=== PATIENT | male | born 1945 | race Caucasian/White ===

== ENCOUNTER 2021-11-13 08:06 | Inpatient (IN) | payer MEDICARE ==
[2021-11-13] MEDS ORDERED: ACETAMINOPHEN TAB 500 MG TAB PO STA (08:29)
--- NOTE | 2021-11-13 08:42 | ED ---
General Adult HPI - General Chief complaint: Shortness of Breath Stated complaint: covid+, low oxygen Time Seen by Provider: 11/13/21 08:23 Source: patient, RN notes reviewed Mode of arrival: wheelchair Limitations: no limitations - History of Present Illness Initial comments: Patient 76-year-old male presented to the emergency room today with chief com plaint of cough, congestion, body aches over the last 4 days. Patient does admit that symptoms started 4 days ago he started to feel better 2 days ago but symptoms increase once again. He denies feeling short of breath. He does admit to body aches and fatigue. Patient denies any other complaints or symptoms at this time. He does admit that his son had COVID-19. He states he has not had a covert test. Patient denies any recent chest pain, back pain, abdominal pain, nausea or vomiting, numbness or tingling, headaches or visual changes, or any other complaints. - Related Data Home Medications Medication Instructions Recorded Confirmed Cholecalciferol [Vitamin D3 (25 50 mcg PO DAILY 11/13/21 11/13/21 Mcg = 1000 Iu)] Allergies Allergy/AdvReac Type Severity Reaction Status Date / Time No Known Allergies Allergy Verified 11/13/21 09:57 Review of Systems ROS Statement: Those systems with pertinent positive or pertinent negative responses have been documented in the HPI. ROS Other: All systems not noted in ROS Statement are negative. Past Medical History Past Medical History: Hypertension History of Any Multi-Drug Resistant Organisms: None Reported Past Surgical History: No Surgical Hx Reported Past Psychological History: No Psychological Hx Reported Smoking Status: Never smoker Past Alcohol Use History: None Reported Past Drug Use History: None Reported General Exam - General Exam Comments Initial Comments: General: The patient is awake and alert, in no distress, and does not appear acutely ill. Eye: No nystagmus. There is normal conjunctiva bilaterally. No signs of icterus. Ears, nose, mouth and throat: There are moist mucous membranes and no oral lesions. Neck: The neck is supple, there is no tenderness or JVD. Cardiovascular: There is a regular rate and rhythm. No murmur, rub or gallop is appreciated. Respiratory: respirations are non-labored, breath sounds are equal. Musculoskeletal: Normal ROM, no tenderness. Strength 5/5. Sensation intact. Neurological: A&O x 3. CN II-XII intact, There are no obvious motor or sensory deficits. Coordination appears grossly intact. Speech is normal. Skin: Skin is warm and dry and no rashes or lesions are noted. Psychiatric: Cooperative, appropriate mood & affect, normal judgment. Limitations: no limitations Course Vital Signs 11/13/21 11/13/21 11/13/21 08:16 08:30 09:46 Temperature 100.5 F H Pulse Rate 84 80 Respiratory 22 20 Rate Blood Pressure 188/91 154/86 O2 Sat by Pulse 80 L 95 95 Oximetry Medical Decision Making - Medical Decision Making Patient was hypoxic at triage. Was placed on nasal cannula oxygen 6 L which improved oxygenation. Patient's chest x-rays consistent with [place] pneumonia. Covert test was positive. Patient's reviewed and does show elevated troponin 0.080. Patient denies any chest pain. EKG has been reviewed. Case discussed with attending physician Dr. Noriega will admit the patient for covert pneumonia. Patient was given dose of dexamethasone here in emergency room for hypoxia. - Lab Data Result diagrams: 11/13/21 08:44 11/13/21 08:44 Lab Results 11/13/21 11/13/21 11/13/21 Range/Units 08:44 08:44 08:44 WBC 4.1 (3.8-10.6) k/uL RBC 4.02 L (4.30-5.90) m/uL Hgb 12.7 L (13.0-17.5) gm/dL Hct 36.1 L (39.0-53.0) % MCV 89.8 (80.0-100.0) fL MCH 31.5 (25.0-35.0) pg MCHC 35.1 (31.0-37.0) g/dL RDW 12.7 (11.5-15.5) % Plt Count 117 L (150-450) k/uL MPV 7.6 Neutrophils % 82 % Lymphocytes % 14 % Monocytes % 3 % Eosinophils % 0 % Basophils % 0 % Neutrophils # 3.4 (1.3-7.7) k/uL Lymphocytes # 0.6 L (1.0-4.8) k/uL Monocytes # 0.1 (0-1.0) k/uL Eosinophils # 0.0 (0-0.7) k/uL Basophils # 0.0 (0-0.2) k/uL Sodium 128 L (137-145) mmol/L Potassium 4.0 (3.5-5.1) mmol/L Chloride 96 L (98-107) mmol/L Carbon Dioxide 24 (22-30) mmol/L Anion Gap 8 mmol/L BUN 23 H (9-20) mg/dL Creatinine 0.99 (0.66-1.25) mg/dL Est GFR (CKD-EPI)AfAm 86 (>60 ml/min/1.73 sqM) Est GFR (CKD-EPI)NonAf 75 (>60 ml/min/1.73 sqM) Glucose 142 H (74-99) mg/dL Calcium 7.8 L (8.4-10.2) mg/dL Total Bilirubin 0.7 (0.2-1.3) mg/dL AST 58 (17-59) U/L ALT 15 (4-49) U/L Alkaline Phosphatase 45 (38-126) U/L Troponin I 0.080 H* (0.000-0.034) ng/mL Total Protein 6.3 (6.3-8.2) g/dL Albumin 3.3 L (3.5-5.0) g/dL Coronavirus (PCR) (Not Detectd) 11/13/21 Range/Units 08:44 WBC (3.8-10.6) k/uL RBC (4.30-5.90) m/uL Hgb (13.0-17.5) gm/dL Hct (39.0-53.0) % MCV (80.0-100.0) fL MCH (25.0-35.0) pg MCHC (31.0-37.0) g/dL RDW (11.5-15.5) % Plt Count (150-450) k/uL MPV Neutrophils % % Lymphocytes % % Monocytes % % Eosinophils % % Basophils % % Neutrophils # (1.3-7.7) k/uL Lymphocytes # (1.0-4.8) k/uL Monocytes # (0-1.0) k/uL Eosinophils # (0-0.7) k/uL Basophils # (0-0.2) k/uL Sodium (137-145) mmol/L Potassium (3.5-5.1) mmol/L Chloride (98-107) mmol/L Carbon Dioxide (22-30) mmol/L Anion Gap mmol/L BUN (9-20) mg/dL Creatinine (0.66-1.25) mg/dL Est GFR (CKD-EPI)AfAm (>60 ml/min/1.73 sqM) Est GFR (CKD-EPI)NonAf (>60 ml/min/1.73 sqM) Glucose (74-99) mg/dL Calcium (8.4-10.2) mg/dL Total Bilirubin (0.2-1.3) mg/dL AST (17-59) U/L ALT (4-49) U/L Alkaline Phosphatase (38-126) U/L Troponin I (0.000-0.034) ng/mL Total Protein (6.3-8.2) g/dL Albumin (3.5-5.0) g/dL Coronavirus (PCR) Detected A (Not Detectd) Critical Care Time Critical Care Time: Yes (Hypoxia) Total Critical Care Time: 32 Disposition Clinical Impression: Pneumonia due to COVID-19 virus, Hypoxia, Elevated troponin Disposition: ADMITTED IP TO THIS [facility] Condition: Stable Referrals: None,Stated [Primary Care Provider] - 1-2 days Time of Disposition: 10:05
[2021-11-13 08:52] LABS: Basophils % (A) 0 %; Eosinophils % (A) 0 %; HCT 36.1 % (39.0-53.0); HGB 12.7 gm/dL (13.0-17.5); Lymphocytes # (A) 0.6 k/uL (1.0-4.8); Lymphocytes % (A) 14 %; MCH 31.5 pg (25.0-35.0); MCHC 35.1 g/dL (31.0-37.0); MCV 89.8 fL (80.0-100.0); Mean Platelet Volume 7.6; Monocytes # (A) 0.1 k/uL (0-1.0); Monocytes % (A) 3 %; Neutrophils # (A) 3.4 k/uL (1.3-7.7); Neutrophils % (A) 82 %; Platelet Count 117 k/uL (150-450); RBC 4.02 m/uL (4.30-5.90); RDW 12.7 % (11.5-15.5); WBC 4.1 k/uL (3.8-10.6)
[2021-11-13 09:15] LABS: Albumin 3.3 g/dL (3.5-5.0); Calcium 7.8 mg/dL (8.4-10.2); Total Bilirubin 0.7 mg/dL (0.2-1.3); Total Protein 6.3 g/dL (6.3-8.2)
--- NOTE | 2021-11-13 09:27 | XR ---
EXAMINATION TYPE: XR chest 1V portable DATE OF EXAM: 11/13/2021 COMPARISON: NONE HISTORY: Covid positive, cough TECHNIQUE: Single frontal view of the chest is obtained. FINDINGS: Bilateral airspace disease is present. Heart size appears prominently which could be techn ical, patient is rotated. There is no evident pneumothorax or pleural effusion. Right hemidiaphragm i s elevated. IMPRESSION: Findings consistent with Covid pneumonia. Follow-up, additional findings above
[2021-11-13] MEDS ORDERED: DEXAMETHASONE SOD PHOSPHATE 10 MG/ML 1 ML VIAL IV STA (09:49)
[2021-11-13] MEDS ORDERED: SODIUM CHLORIDE 0.9% 1,000 ML IV ONE (10:00)
--- NOTE | 2021-11-13 16:01 | HP ---
HISTORY AND PHYSICAL CHIEF COMPLAINTS: Shortness of breath and cough with positive and hypoxia. HISTORY OF PRESENT ILLNESS: This 77-year-old gentleman with a past medical history of hypertension, not being followed by any primary care physician in the outpatient setting, was recently moved to the area. The patient presented to the emergency room with complaints of cough, shortness of breath, body aches for the last 4 days and the patient was feeling shortness of breath. The patient's son had Covid 19 positive and the patient came to [facility] and pulse ox was found to be 80% on room air on admission and the patient was febrile. The chest x-ray which was done in the ER and personally reviewed by me showed significant bilateral pneumonia. The patient admitted for further evaluation and treatment. There is no history of any rigors, no history of headache, loss of consciousness, seizures at this time. Lab hutchinson, the patient had hyponatremia. The patient also had elevated troponin. Cardiology evaluation is sought and albumin is 3.3 at this time. PAST MEDICAL HISTORY: History of hypertension. MEDICATIONS: Prior to admission medications are: Vitamin D3 50 mg daily. ALLERGIES: None. FAMILY HISTORY: No history of heart disease or strokes in the family. SOCIAL HISTORY: No history of smoking. No history of alcohol. REVIEW OF SYSTEMS: ENT: No diminished vision. No diminished hearing. CARDIOVASCULAR as mentioned. RESPIRATORY: As mentioned earlier. GI: No nausea or vomiting. : No dysuria. NERVOUS SYSTEM: No numbness or weakness. ALLERGY/IMMUNOLOGY: No asthma, hayfever. MUSCULOSKELETAL as mentioned earlier. HEMATOLOGY/ONCOLOGY: No history of anemia. ENDOCRINE: No history of diabetes. CONSTITUTIONAL: As mentioned earlier. DERMATOLOGY: Negative. RHEUMATOLOGY: Negative. PSYCHIATRIC: As mentioned earlier. PHYSICAL EXAMINATION: The patient is alert and oriented times three. Pulse 84, blood pressure 180/91, respirations 22, temperature 100.5, pulse ox 88 percent on room air. HEENT: Conjunctivae normal. Oral mucosa moist. NECK: No jugular venous distention. No carotid bruit. CARDIOVASCULAR system: S1, S2 muffled. RESPIRATION: Breath sounds diminished in the bases. A few scattered rhonchi. ABDOMEN: Soft, obese. LEGS: No edema. No swelling. NERVOUS SYSTEM: Higher functions as mentioned earlier. Moves all four limbs. No focal motor or sensory deficits. LYMPHATICS: No lymph nodes palpable in the neck, axillae or groin. SKIN: No ulcer. No rash. No bleeding. JOINTS: No active deforming arthropathy. LABS: WBC 4.8, hemoglobin 12.6, sodium 120. Other labs are noted. X-ray reviewed personally. ASSESSMENT: 1. Acute Covid 19 with acute Covid 19 bilateral interstitial pneumonia with acute hypoxic respiratory failure. 2. Anemia, normocytic. 3. Thrombocytopenia. 4. Hyponatremia. 5. Elevated random glucose. 6. Troponin 0.080, indeterminate rule out acute myocardial infarction possibly Covid 19 related. 7. Hypertension. 8. Obesity with body mass of 42.6. RECOMMENDATIONS AND DISCUSSION: This 76-year-old gentleman who presented with multiple complex medical issues, we will monitor the patient closely. Continue the current medications, management and symptomatic treatment. We will initiate oxygen, dexamethasone, Lovenox. Cardiology consultation. Pulmonary consultation. We will also recommend a D-dimer and if it is positive, a CT angio chest. Prognosis guarded. Further recommendations to follow. Recommend the patient follow up with primary physician after discharge. MMODL / IJN: [id number] /
[2021-11-13] MEDS: amLODIPine 10 MG TAB PO SCH (16:02)
[2021-11-13] MEDS: dexAMETHasone 2 MG TAB PO SCH (16:03)
[2021-11-13] MEDS: ENOXAPARIN 40 MG/0.4 ML SYRINGE SQ SCH (16:04)
[2021-11-13 16:07] LABS: C Reactive Protein 4.2 mg/dL (<1.0); Magnesium 2.2 mg/dL (1.6-2.3)
[2021-11-13] MEDS ORDERED: ALBUTEROL HFA INHALER INHALATION SCH (20:00)
[2021-11-14 06:35] LABS: Basophils % (A) 0 %; Eosinophils % (A) 0 %; HCT 36.4 % (39.0-53.0); HGB 12.3 gm/dL (13.0-17.5); Lymphocytes # (A) 0.4 k/uL (1.0-4.8); Lymphocytes % (A) 14 %; MCH 30.6 pg (25.0-35.0); MCHC 33.7 g/dL (31.0-37.0); MCV 90.8 fL (80.0-100.0); Mean Platelet Volume 7.7; Monocytes # (A) 0.2 k/uL (0-1.0); Monocytes % (A) 5 %; Neutrophils # (A) 2.4 k/uL (1.3-7.7); Neutrophils % (A) 79 %; Platelet Count 129 k/uL (150-450); RBC 4.01 m/uL (4.30-5.90); RDW 12.6 % (11.5-15.5); WBC 3.1 k/uL (3.8-10.6)
[2021-11-14 06:54] LABS: African American GFR (CKD) >90 (>60 ml/min/1.73 sqM); Anion Gap 10 mmol/L; Blood Urea Nitrogen 23 mg/dL (9-20); Calcium 8.1 mg/dL (8.4-10.2); Carbon Dioxide 25 mmol/L (22-30); Chloride 94 mmol/L (98-107); Glucose 152 mg/dL (74-99); Non-African American GFR(CKD) 83 (>60 ml/min/1.73 sqM); Potassium 4.1 mmol/L (3.5-5.1); Sodium 129 mmol/L (137-145)
[2021-11-14] MEDS: CHOLECALCIFEROL 25 MCG (1000 IU) TABLET PO SCH (08:04)
[2021-11-14] MEDS: dexAMETHasone 2 MG TAB PO SCH (08:04)
[2021-11-14] MEDS: ENOXAPARIN 40 MG/0.4 ML SYRINGE SQ SCH (08:04)
[2021-11-14] MEDS: amLODIPine 10 MG TAB PO SCH (08:04)
[2021-11-14] MEDS: ALBUTEROL HFA INHALER INHALATION SCH ×4 (10:01→21:15)
--- NOTE | 2021-11-14 15:32 | P.CNPUL ---
History of Present Illness Consult date: 11/14/21 Requesting physician: Sammy Noriega Reason for consult: dyspnea, cough, hypoxemia, pneumonia, abnormal CXR/CT Chief complaint: Shortness of breath, myalgias, cough. History of present illness: Pulmonary consult dated 11/14/2021. 76-year-old male with a history of hypertension, presents to the emergency department at 8:00 in the morning, on November 13. He came in because of complaints of increasing and progressive shortness of breath. He's also complaining of some muscle soreness, and cough. He denied any fever or chills. The patient has been sick for about 10 days or so. The patient's only history is that of hypertension. Does not have a family doctor in this area. The patient apparently tested positive for coronavirus on November 09. He is on vaccinated. The patient's currently on 5 L nasal cannula, with saturations of 94%. Laboratory data includes a white count of 3.1, hemoglobin 12.3, hematocrit 36.4, and platelet count 129,000. D-dimer is 0.68. Sodium 129, potassium 4.1, chlorides 94, CO2 25, anion gap 10, BUN 23, and creatinine 0.91. The patient's troponins were 0.080 and 0.089. Albumin was 3.3. C-reactive protein 4.2. LDH 1009. Coronavirus testing was positive. Chest x-ray shows diffuse bilateral infiltrates. The patient appears not to be in any significant respiratory distress. Review of Systems REVIEW OF SYSTEMS: CONSTITUTIONAL: Fatigue. NEUROLOGIC: [ Negative.] HEENT: [ Negative.] CARDIAC: [Negative.] PULMONARY: Shortness of breath, and dry cough. GI: [Negative.] : [Negative.] RHEUMATOLOGIC: Myalgias. IMMUNOLOGIC: [ Negative.] ENDOCRINE: [Negative. ] DERMATOLOGIC: [Negative.] Past Medical History Past Medical History: Hypertension History of Any Multi-Drug Resistant Organisms: None Reported Past Surgical History: No Surgical Hx Reported Past Psychological History: No Psychological Hx Reported Smoking Status: Never smoker Past Alcohol Use History: None Reported Past Drug Use History: None Reported Medications and Allergies Home Medications Medication Instructions Recorded Confirmed Type Cholecalciferol [Vitamin D3 (25 50 mcg PO DAILY 11/13/21 11/13/21 History Mcg = 1000 Iu)] Allergies Allergy/AdvReac Type Severity Reaction Status Date / Time No Known Allergies Allergy Verified 11/13/21 09:57 Physical Exam Osteopathic Statement: *. No significant issues noted on an osteopathic structural exam other than those noted in the History and Physical/Consult. Vitals: Vital Signs Temp Pulse Pulse Pulse Resp BP BP 11/14/21 11:30 87 16 148/69 11/14/21 08:05 96.8 F L 71 16 178/83 11/14/21 04:00 97.9 F 95 18 160/76 11/14/21 00:00 98.1 F 98 18 174/88 11/13/21 20:51 11/13/21 20:00 98.0 F 77 18 188/83 11/13/21 17:58 98.0 F 69 18 160/74 11/13/21 16:27 11/13/21 16:25 11/13/21 16:00 66 16 160/86 Pulse Ox 11/14/21 11:30 93 L 11/14/21 08:05 94 L 11/14/21 04:00 93 L 11/14/21 00:00 91 L 11/13/21 20:51 94 L 11/13/21 20:00 93 L 11/13/21 17:58 94 L 11/13/21 16:27 93 L 11/13/21 16:25 80 L 11/13/21 16:00 95 Intake and Output 11/14/21 11/14/21 11/14/21 06:59 14:59 22:59 Intake Total 236 Balance 236 Intake: Oral 236 Other: Voiding Method Toilet Toilet # Voids 3 1 Weight 145 kg No acute distress, oriented 3. Currently, the patient's on 5 L nasal cannula. Saturations are 94%. HEENT examination is grossly unremarkable. Neck supple. Full range of motion. No adenopathy thyromegaly or neck vein distention. Cardiovascular examination reveals regular rhythm rate. S1-S2 normal. No S3 or S4. No discernible murmur noted. Heart rate 87 bpm. Heart sounds are distant. Lungs reveal some bilateral rhonchi. No wheezes or crackles. Breath sounds equal bilaterally. Abdomen soft bowel sounds are heard. No masses or tenderness. Extremities are intact. No cyanosis clubbing or edema. Skin is without rash or lesion. Neurologic examination is brief but nonfocal. Results - Laboratory Findings CBC and BMP: 11/14/21 05:55 11/14/21 05:55 PT/INR, D-dimer D-Dimer 0.68 mg/L FEU (<0.60) H 11/13/21 15:27 Abnormal lab findings: Abnormal Labs 11/13/21 11/13/21 11/13/21 08:44 08:44 08:44 WBC RBC 4.02 L Hgb 12.7 L Hct 36.1 L Plt Count 117 L Lymphocytes # 0.6 L D-Dimer Sodium 128 L Chloride 96 L BUN 23 H Glucose 142 H Calcium 7.8 L Ferritin Lactate Dehydrogenase Troponin I 0.080 H* C-Reactive Protein Albumin 3.3 L Coronavirus (PCR) 11/13/21 11/13/21 11/13/21 08:44 12:43 15:27 WBC RBC Hgb Hct Plt Count Lymphocytes # D-Dimer 0.68 H Sodium Chloride BUN Glucose Calcium Ferritin Lactate Dehydrogenase Troponin I 0.089 H* C-Reactive Protein Albumin Coronavirus (PCR) Detected A 11/13/21 11/14/21 11/14/21 15:27 05:55 05:55 WBC 3.1 L RBC 4.01 L Hgb 12.3 L Hct 36.4 L Plt Count 129 L Lymphocytes # 0.4 L D-Dimer Sodium 129 L Chloride 94 L BUN 23 H Glucose 152 H Calcium 8.1 L Ferritin 447.0 H Lactate Dehydrogenase 1009 H Troponin I C-Reactive Protein 4.2 H Albumin Coronavirus (PCR) - Diagnostic Findings Chest x-ray: image reviewed Assessment and Plan Assessment: Acute hypoxemic respiratory failure secondary to coronavirus associated pneumonia. History of hypertension. History of obesity. Plan: Plan dated 11/14/2021. The patient is not a candidate for REM. The patient should get vitamin C, vitamin D3, and zinc, at usual doses. In addition, the patient should get Decadron 6 mg a day, and Lovenox 40 mg subcu daily. We will continue to watch patient closely. He actually asked me to know whether or not he could go home. Prognosis is guarded. We will continue to follow make recommendations were appropriate. His chest x-ray looks bad. Time with Patient: Greater than 30
[2021-11-14] MEDS: INSULIN ASPART (NovoLOG) 100 UNIT/ML VIAL SQ SCH ×2 (17:38→20:15)
--- NOTE | 2021-11-14 17:50 | PN ---
PROGRESS NOTE DATE OF SERVICE: 11/14/2021 This 76-year-old gentleman admitted with acute COVID-19 infection with acute bilateral interstitial pneumonia is being closely monitored at this time. The D-dimer is elevated up to 0.68. Creatinine is normal. The patient was started on the usual medications of COVID-19. There is no history of any fever, rigor or chills at this time. Pulmonary consultation is ongoing. No fever. No cough. PHYSICAL EXAMINATION: Alert and oriented x3. Pulse 68, blood pressure 140/60, respirations 16, temperature 97.2, pulse ox 92% on 5 L. HEENT: Conjunctivae normal. NECK: No jugular venous distention. CARDIOVASCULAR: S1, S2 muffled. RESPIRATION: Breath sounds diminished at the bases. A few scattered rhonchi. ABDOMEN: Soft. NERVOUS SYSTEM: No focal deficit. LABS: WBC 3.2, hemoglobin 12.6. Sodium 129. ASSESSMENT: 1. Acute COVID-19 infection with acute COVID-19 bilateral interstitial pneumonia with acute hypoxic respiratory failure. 2. Anemia, normocytic. 3. Thrombocytopenia. 4. Leukopenia, possibly secondary to COVID-19. 5. Hyponatremia. 6. Elevated random glucose. 7. Troponin 0.087, indeterminate, possibly secondary to COVID-19. 8. Hypertension. 9. Rule out coronary artery disease. 10.Obesity with body mass index of 42.6. 11.Elevated inflammatory markers of COVID-19. RECOMMENDATIONS AND DISCUSSION: In this 76-year-old gentleman who presented with multiple complex medical issues, we will monitor the patient closely, continue the current medications, continue symptomatic treatment. I recommend cardiology evaluation as well as two-D echo with Doppler. Repeat labs. Infectious disease evaluation, pulmonary evaluation, and also a CT angio of the chest to complete the workup. Prognosis guarded. Further recommendations to follow. Ultrasound of the leg also will be requested. MMODL / IJN: [id number] /
--- NOTE | 2021-11-14 18:38 | CT ---
EXAMINATION TYPE: CT angio chest DATE OF EXAM: 11/14/2021 6:26 PM COMPARISON: Radiograph 11/13/2021 HISTORY: SOB, elevated d-dimer, covid CT DLP: 1036.3 mGycm Automated exposure control for dose reduction was used. CONTRAST: CTA scan of the thorax is performed with IV Contrast, patient injected with 80cc mL of Isovue 370, pu lmonary embolism protocol. MIP images are created and reviewed. FINDINGS: LUNGS: There are bilateral diffuse marked patchy ground glass opacities. There are small bilateral pl eural effusions. No pneumothorax. Otherwise tracheobronchial tree is patent. MEDIASTINUM: There is limited evaluation of the pulmonary artery segmental subsegmental branches. Oth erwise there is no CT evidence for pulmonary embolism. There are no greater than 1 cm hilar or media stinal lymph nodes. No pericardial effusion is seen. OTHER: No additional significant abnormality is seen. IMPRESSION: NO ACUTE PE WITHIN THE LIMITATIONS OF THE STUDY. FINDINGS COMPATIBLE WITH ATYPICAL PNEUMONIA INCLUDING COVID.
[2021-11-14 20:12] LABS: Glucose,Whole Blood 152 mg/dL (75-99)
[2021-11-15 05:58] LABS: Glucose,Whole Blood 117 mg/dL (75-99)
[2021-11-15] MEDS: INSULIN ASPART (NovoLOG) 100 UNIT/ML VIAL SQ SCH ×4 (06:35→21:03)
[2021-11-15 07:52] LABS: Basophils % (A) 0 %; Eosinophils % (A) 0 %; HCT 37.2 % (39.0-53.0); HGB 12.7 gm/dL (13.0-17.5); Lymphocytes # (A) 0.5 k/uL (1.0-4.8); Lymphocytes % (A) 7 %; MCHC 34.2 g/dL (31.0-37.0); MCV 90.7 fL (80.0-100.0); Mean Platelet Volume 7.5; Monocytes # (A) 0.4 k/uL (0-1.0); Monocytes % (A) 5 %; Neutrophils % (A) 87 %; Platelet Count 180 k/uL (150-450); RDW 12.9 % (11.5-15.5); WBC 6.9 k/uL (3.8-10.6)
[2021-11-15 08:07] LABS: Calcium 8.6 mg/dL (8.4-10.2); Potassium 4.5 mmol/L (3.5-5.1)
[2021-11-15] MEDS: dexAMETHasone 2 MG TAB PO SCH (08:38)
[2021-11-15] MEDS: amLODIPine 10 MG TAB PO SCH (08:38)
[2021-11-15] MEDS: CHOLECALCIFEROL 25 MCG (1000 IU) TABLET PO SCH (08:38)
[2021-11-15] MEDS: ZINC SULFATE 220 MG CAP PO SCH (08:38)
[2021-11-15] MEDS: ASCORBIC ACID 500 MG TAB PO SCH (08:39)
[2021-11-15] MEDS: ENOXAPARIN 40 MG/0.4 ML SYRINGE SQ SCH (08:39)
[2021-11-15] MEDS: ALBUTEROL HFA INHALER INHALATION SCH ×4 (08:41→21:27)
--- NOTE | 2021-11-15 09:13 | P.CONS ---
History of Present Illness - Reason for Consult Consult date: 11/14/21 covid 19 Requesting physician: Caitlin Ureña - Chief Complaint shortness of breath x few days - History of Present Illness History of present illness : Patient is 76-year-old male presenting to the ER for evaluation of cough congestion body aches that has been going on for the last 10 days to 2 weeks, with progressive increasing shortness of breath over the last few days patient denies having any fever or any chills patient did have a cough which is mild in intensity and is dry nature no pleuritic chest pain some nausea but no vomiting no abdominal pain no diarrhea on presentation to the hospital patient did have low-grade fever 100.5 F patient did have a hypoxemia with O2 sats of 80% on room air is currently 1% on 5 L nasal cannula patient did have a normal white count with lymphopenia D-dimer was mildly elevated creatinine 0.91 did have elevated troponin level exams are normal CRP is elevated hawkins PCR was positive patient did have a chest x-ray finding consistent with a Covid pneumonia patient was admitted to the hospital infectious he was consulted for further management patient did mention improvement in his symptomatology since he has been admitted to hospital Review of system: CONSTITUTIONAL: Positive for weakness along with the fever. EYES: No complaint. ENT: No complaint. RESPIRATORY: As per history of present illness. CARDIOVASCULAR: No complaint. GENITOURINARY: No complaint. GASTROINTESTINAL: As per history of present illness. MUSCULOSKELETAL: No complaint. INTEGUMENTARY: No complaint. PSYCHOLOGIC: No complaint. ENDOCRINE: No complaint. NEUROLOGIC: No complaint. Past medical history : Reviewed, documented below Past surgical history : Reviewed, documented below Social history: Reviewed, documented below Medications: Reviewed, as documented below EXAMINATION: Vital sigans= Reviewed and documented below GENERAL DESCRIPTION: Elderly male up in the room, no distress. No tachypnea or accessory muscle of respiration use. HEENT: Shows Pallor , no scleral icterus. Oral mucous membrane is dry. NECK: Trachea central, no thyromegaly. LUNGS: Unlabored breathing. Coarse breath sounds bilaterally. No wheeze or c rackle. HEART: S1, S2, regular rate and rhythm. ABDOMEN: Soft, no tenderness , guarding or rigidity EXTREMITIES: No edema of feet. SKIN: No rash, no masses palpable. NEUROLOGICAL: The patient is awake, alert, oriented x3, mood and affect normal. LABS AND RADIOLOGY: Reviewed results see below Assessment : Patient presented to hospital with increasing shortness of breath and cough in this we did have low-grade fever with evidence of multifocal pneumonia on a chest x-ray secondary to the COVID-19 infection patient symptom has been going on for more than 10 days and is currently out of the therapeutic window for remdesivir and clinically no suspicion for secondary bacterial pneumonia Plan: 1-patient to continue with the dexamethasone Lovenox 2-we will add zinc and ascorbic acid 3-droplet isolation and respiratory support We will follow on clinical condition and cultures to further adjust medication if needed Thank you for this consultation we will follow the patient along with you Past Medical History Past Medical History: Hypertension History of Any Multi-Drug Resistant Organisms: None Reported Past Surgical History: No Surgical Hx Reported Past Psychological History: No Psychological Hx Reported Smoking Status: Never smoker Past Alcohol Use History: None Reported Past Drug Use History: None Reported Medications and Allergies Home Medications Medication Instructions Recorded Confirmed Type Cholecalciferol [Vitamin D3 (25 50 mcg PO DAILY 11/13/21 11/13/21 History Mcg = 1000 Iu)] Allergies Allergy/AdvReac Type Severity Reaction Status Date / Time No Known Allergies Allergy Verified 11/13/21 09:57 Physical Exam Vitals: Vital Signs Temp Pulse Pulse Pulse Resp BP BP 11/14/21 11:30 87 16 148/69 11/14/21 08:05 96.8 F L 71 16 178/83 11/14/21 04:00 97.9 F 95 18 160/76 11/14/21 00:00 98.1 F 98 18 174/88 11/13/21 20:51 11/13/21 20:00 98.0 F 77 18 188/83 11/13/21 17:58 98.0 F 69 18 160/74 11/13/21 16:27 11/13/21 16:25 11/13/21 16:00 66 16 160/86 11/13/21 13:42 97.9 F 64 16 167/96 Pulse Ox 11/14/21 11:30 93 L 11/14/21 08:05 94 L 11/14/21 04:00 93 L 11/14/21 00:00 91 L 11/13/21 20:51 94 L 11/13/21 20:00 93 L 11/13/21 17:58 94 L 11/13/21 16:27 93 L 11/13/21 16:25 80 L 11/13/21 16:00 95 11/13/21 13:42 96 Intake and Output 11/13/21 11/14/21 11/14/21 22:59 06:59 14:59 Intake Total 118 Balance 118 Intake: Oral 118 Other: Voiding Method Toilet Toilet Toilet # Voids 3 1 Weight 145.15 kg 145 kg Results CBC & Chem 7: 11/15/21 07:10 11/15/21 07:10 Labs: Abnormal Lab Results - Last 24 Hours (Table) 11/13/21 11/13/21 11/13/21 Range/Units 12:43 15:27 15:27 WBC (3.8-10.6) k/uL RBC (4.30-5.90) m/uL Hgb (13.0-17.5) gm/dL Hct (39.0-53.0) % Plt Count (150-450) k/uL Lymphocytes # (1.0-4.8) k/uL D-Dimer 0.68 H (<0.60) mg/L FEU Sodium (137-145) mmol/L Chloride (98-107) mmol/L BUN (9-20) mg/dL Glucose (74-99) mg/dL Calcium (8.4-10.2) mg/dL Ferritin 447.0 H (22.0-322.0) ng/mL Lactate Dehydrogenase 1009 H (313-618) U/L Troponin I 0.089 H* (0.000-0.034) ng/mL C-Reactive Protein 4.2 H (<1.0) mg/dL 11/14/21 11/14/21 Range/Units 05:55 05:55 WBC 3.1 L (3.8-10.6) k/uL RBC 4.01 L (4.30-5.90) m/uL Hgb 12.3 L (13.0-17.5) gm/dL Hct 36.4 L (39.0-53.0) % Plt Count 129 L (150-450) k/uL Lymphocytes # 0.4 L (1.0-4.8) k/uL D-Dimer (<0.60) mg/L FEU Sodium 129 L (137-145) mmol/L Chloride 94 L (98-107) mmol/L BUN 23 H (9-20) mg/dL Glucose 152 H (74-99) mg/dL Calcium 8.1 L (8.4-10.2) mg/dL Ferritin (22.0-322.0) ng/mL Lactate Dehydrogenase (313-618) U/L Troponin I (0.000-0.034) ng/mL C-Reactive Protein (<1.0) mg/dL
--- NOTE | 2021-11-15 10:47 | P.CRDCN ---
History of Present Illness History of present illness: HISTORY OF PRESENTING ILLNESS This is a pleasant 76-year-old male past medical history significant for hypertension. He does not follow with a energy conservation specialist. We have been asked to see in consultation for elevated troponin. Patient presents with complaints of increasing shortness of breath, some muscle soreness, and cough. Patient tested positive for COVID-19 on November 09, he is unvaccinated. The patient's troponins were 0.080 and 0.089. Coronavirus testing was positive. Chest x-ray revealed diffuse bilateral infiltrates. Patient seen and examined at bedside, his shortness of breath he says has improved, he is adamant about going home. He denies chest pain, lightheadedness or dizziness. He denies any history of CAD, AL, Stroke, or diabetes. DIAGNOSTICS EKG reveals sinus rhythm HR 75, no significant ST-T wave abnormalities Telemetry tracings indicate sinus rhythm, heart rate 6080s Chest CT- Negative for PE, findings compatible with atypical pneumonia Laboratory reviewed, WBC 6.9, hemoglobin 12, platelets 180, sodium 131, potassium 4.5, BUN 30, serum creatinine 1.1 Current cardiac medications include vitamin D 3 REVIEW OF SYSTEMS At the time of my exam: CONSTITUTIONAL: Denies fever or chills. CARDIOVASCULAR: +shortness of breath, Denies chest pain, orthopnea, PND or palpitations. RESPIRATORY: +cough. GASTROINTESTINAL: Denies abdominal pain, diarrhea, constipation, nausea or vomiting. MUSCULOSKELETAL: Denies myalgias. NEUROLOGIC: Denies numbness, tingling, headacbe or weakness. ENDOCRINE: Denies fatigue, weight change, polydipsia or polyurina. GENITOURINARY: Denies burning, hematuria or urgency with micturation. HEMATOLOGIC: Denies history of anemia or bleeding. PHYSICAL EXAMINATION Blood pressure 176/83 HR 76, afebrile, Oxygen saturations 91% on 5L nasal cannula CONSTITUTIONAL: No apparent distress. HEENT: Head is normocephalic. No JVD. CHEST EXAMINATION: Lungs are bilateral rhonchi to auscultation. HEART EXAMINATION: Regular rate and rhythm. S1, S2 heard. ABDOMEN: Soft, nontender. Positive bowel sounds. EXTREMITIES: no lower extremity edema NEUROLOGIC EXAMINATION: Patient is awake, alert and oriented x3. ASSESSMENT Covid-19 pneumonia Elevated troponin, likely related to covid-19 infection and hypoxemia Hypertension PLAN We will obtain 2D echocardiogram, if no acute findings on echocardiogram no further workup from a cardiology perspective. Rest of management per Pulmonary and primary. Nurse Practitioner note has been reviewed, I agree with a documented findings and plan of care. Patient was seen and examined. Past Medical History Past Medical History: Hypertension History of Any Multi-Drug Resistant Organisms: None Reported Past Surgical History: No Surgical Hx Reported Past Psychological History: No Psychological Hx Reported Smoking Status: Never smoker Past Alcohol Use History: None Reported Past Drug Use History: None Reported Medications and Allergies Home Medications Medication Instructions Recorded Confirmed Type Cholecalciferol [Vitamin D3 (25 50 mcg PO DAILY 11/13/21 11/13/21 History Mcg = 1000 Iu)] Allergies Allergy/AdvReac Type Severity Reaction Status Date / Time No Known Allergies Allergy Verified 11/13/21 09:57 Physical Exam Vitals: Vital Signs Temp Pulse Resp BP Pulse Ox 11/15/21 03:59 98.6 F 76 18 176/83 91 L 11/15/21 00:00 98.1 F 79 19 166/74 91 L 11/14/21 20:00 98.0 F 92 18 166/72 93 L 11/14/21 15:35 97.9 F 68 16 141/63 92 L 11/14/21 11:30 87 16 148/69 93 L Intake and Output 11/14/21 11/15/21 11/15/21 22:59 06:59 14:59 Intake Total 128 10 Balance 128 10 Intake: IV 10 10 Invasive Line 2 10 10 Oral 118 Other: Voiding Method Toilet Toilet # Voids 4 1 Weight 144.3 kg Results 11/15/21 07:10 11/15/21 07:10 CBC 11/15/21 Range/Units 07:10 WBC 6.9 (3.8-10.6) k/uL RBC 4.10 L (4.30-5.90) m/uL Hgb 12.7 L (13.0-17.5) gm/dL Hct 37.2 L (39.0-53.0) % Plt Count 180 (150-450) k/uL Comprehensive Metabolic Panel 11/15/21 Range/Units 07:10 Sodium 131 L (137-145) mmol/L Potassium 4.5 (3.5-5.1) mmol/L Chloride 97 L (98-107) mmol/L Carbon Dioxide 29 (22-30) mmol/L BUN 30 H (9-20) mg/dL Creatinine 1.14 (0.66-1.25) mg/dL Glucose 121 H (74-99) mg/dL Calcium 8.6 (8.4-10.2) mg/dL Current Medications Generic Name Dose Route Start Last Admin Trade Name Freq PRN Reason Stop Dose Admin Albuterol Sulfate 2 puff 11/14/21 08:00 11/15/21 08:41 Albuterol Hfa Inhaler INHALATION 2 puff RT-QID UMANG Administration Amlodipine Besylate 10 mg 11/13/21 15:30 11/14/21 08:04 Amlodipine 10 Mg Tab PO 10 mg DAILY UMANG Administration Ascorbic Acid 1,000 mg 11/15/21 09:00 Ascorbic Acid 500 Mg Tab PO DAILY UMANG Cholecalciferol 50 mcg 11/14/21 09:00 11/14/21 08:04 Cholecalciferol 25 Mcg (1000 Iu) Tablet PO 50 mcg DAILY UMANG Administration Dexamethasone 6 mg 11/13/21 15:30 11/14/21 08:04 Dexamethasone 2 Mg Tab PO 11/23/21 15:31 6 mg DAILY UMANG Administration Enoxaparin Sodium 40 mg 11/13/21 15:30 11/14/21 08:04 Enoxaparin 40 Mg/0.4 Ml Syringe SQ 40 mg Q24HR UMANG Administration Insulin Aspart 0 unit 11/14/21 17:30 11/15/21 06:35 Insulin Aspart (Novolog) 100 Unit/Ml Vial SQ Not Given ACHS [facility] Protocol Zinc Sulfate 220 mg 11/15/21 09:00 Zinc Sulfate 220 Mg Cap PO DAILY UMANG Intake and Output 11/14/21 11/15/21 11/15/21 22:59 06:59 14:59 Intake Total 128 10 Balance 128 10 Intake: IV 10 10 Invasive Line 2 10 10 Oral 118 Other: Voiding Method Toilet Toilet # Voids 4 1 Weight 144.3 kg 11/15/21 07:10 11/15/21 07:10
[2021-11-15 11:26] LABS: Glucose,Whole Blood 128 mg/dL (75-99)
[2021-11-15] MEDS: ACETAMINOPHEN TAB 325 MG TAB PO PRN (12:35)
[2021-11-15] MEDS ORDERED: methylPREDNISolone SOD SUCCI 125 MG/2 ML VIAL IV SCH (13:45)
--- NOTE | 2021-11-15 14:50 | P.PN ---
Subjective Progress Note Date: 11/15/21 Principal diagnosis: Shortness of breath. Pulmonary consult dated 11/14/2021. 76-year-old male with a history of hypertension, presents to the emergency department at 8:00 in the morning, on November 13. He came in because of complaints of increasing and progressive shortness of breath. He's also complaining of some muscle soreness, and cough. He denied any fever or chills. The patient has been sick for about 10 days or so. The patient's only history is that of hypertension. Does not have a family doctor in this area. The patient apparently tested positive for coronavirus on November 09. He is on vaccinated. The patient's currently on 5 L nasal cannula, with saturations of 94%. Laboratory data includes a white count of 3.1, hemoglobin 12.3, hematocrit 36.4, and platelet count 129,000. D-dimer is 0.68. Sodium 129, potassium 4.1, chlorides 94, CO2 25, anion gap 10, BUN 23, and creatinine 0.91. The patient's troponins were 0.080 and 0.089. Albumin was 3.3. C-reactive protein 4.2. LDH 1009. Coronavirus testing was positive. Chest x-ray shows diffuse bilateral infiltrates. The patient appears not to be in any significant respiratory distress. Progress note dated 11/15/2021. 76-year-old male, seen in consultation yesterday. He was admitted with a diagnosis of coronavirus associated pneumonia. Currently, he's on 5 L nasal cannula. Not receiving any IV fluids. The CT angiogram was negative for pulmonary embolism. His white count 6.9, hemoglobin 12.7, hematocrit 37.2, with a normal platelet count. Sodium 131, potassium 4.5, chlorides 97, CO2 29, BUN 30, creatinine 1.1. The patient was sitting in the room, all dressed, ready to leave. Apparently he is not being discharged. Chest x-ray showed diffuse bilateral infiltrates. Coronavirus testing was positive. Objective - Vital Signs Vital signs: Vital Signs Temp 99.8 F H 11/15/21 12:00 Pulse 84 11/15/21 12:00 Resp 18 11/15/21 13:31 BP 150/83 11/15/21 12:00 Pulse Ox 88 L 11/15/21 13:33 Intake & Output 11/14/21 11/15/21 11/15/21 18:59 06:59 18:59 Intake Total 354 20 240 Balance 354 20 240 Weight 144.3 kg Intake: IV 20 Invasive Line 2 20 Oral 354 240 Other: Voiding Method Toilet Toilet # Voids 4 1 - Exam No acute distress, oriented 3. Currently, the patient's on 5 L nasal cannula. Saturations are 89%. HEENT examination is grossly unremarkable. Neck supple. Full range of motion. No adenopathy thyromegaly or neck vein distention. Cardiovascular examination reveals regular rhythm rate. S1-S2 normal. No S3 or S4. No discernible murmur noted. Heart rate 84 bpm. Heart sounds are distant. Lungs reveal some bilateral rhonchi. No wheezes or crackles. Breath sounds equal bilaterally. Abdomen soft bowel sounds are heard. No masses or tenderness. Extremities are intact. No cyanosis clubbing or edema. Skin is without rash or lesion. Neurologic examination is brief but nonfocal. - Labs CBC & Chem 7: 11/15/21 07:10 11/15/21 07:10 Labs: Abnormal Lab Results - Last 24 Hours (Table) 11/14/21 11/15/21 11/15/21 Range/Units 20:08 05:55 07:10 RBC 4.10 L (4.30-5.90) m/uL Hgb 12.7 L (13.0-17.5) gm/dL Hct 37.2 L (39.0-53.0) % Lymphocytes # 0.5 L (1.0-4.8) k/uL Sodium (137-145) mmol/L Chloride (98-107) mmol/L BUN (9-20) mg/dL Glucose (74-99) mg/dL POC Glucose (mg/dL) 152 H 117 H (75-99) mg/dL 11/15/21 11/15/21 Range/Units 07:10 11:18 RBC (4.30-5.90) m/uL Hgb (13.0-17.5) gm/dL Hct (39.0-53.0) % Lymphocytes # (1.0-4.8) k/uL Sodium 131 L (137-145) mmol/L Chloride 97 L (98-107) mmol/L BUN 30 H (9-20) mg/dL Glucose 121 H (74-99) mg/dL POC Glucose (mg/dL) 128 H (75-99) mg/dL Assessment and Plan Assessment: Acute hypoxemic respiratory failure secondary to coronavirus associated pneu monia. History of hypertension. History of obesity. Plan: Plan dated 11/14/2021. The patient is not a candidate for REM. The patient should get vitamin C, vitamin D3, and zinc, at usual doses. In addition, the patient should get Decadron 6 mg a day, and Lovenox 40 mg subcu daily. We will continue to watch patient closely. He actually asked me to know whether or not he could go home. Prognosis is guarded. We will continue to follow make recommendations were appropriate. His chest x-ray looks bad. Plan dated 11/15/2021. The patient is not a candidate for REM. The patient get vitamin C, vitamin D3, and take in addition, the patient get Lovenox, and Decadron. Currently, he's on 5 L nasal cannula. Saturations are in the high 80s low 90s. The patient was all dressed ready to go home, but apparently is not being discharged. His chest x-ray shows diffuse bilateral infiltrates. There is no pulmonary embolism on CT angiogram. His lab data is reviewed. Time with Patient: Less than 30
[2021-11-15 16:46] LABS: Glucose,Whole Blood 127 mg/dL (75-99)
--- NOTE | 2021-11-15 17:33 | ECHOF ---
Referral Reason: MEASUREMENTS -------- HEIGHT: 0.0 cm WEIGHT: 0.0 kg BP: RVIDd: 4.0 cm (< 3.3) IVSd: 1.7 cm (0.6 - 1.1) LVIDd: 5.6 cm (3.9 - 5.3) LVPWd: 1.7 cm (0.6 - 1.1) IVSs: 1.9 cm LVIDs: 4.0 cm LVPWs: 2.0 cm LAESV Index (A-L): 61.55 ml/m Ao Diam: 3.2 cm (2.0 - 3.7) AV Cusp: 2.3 cm (1.5 - 2.6) LA Diam: 5.4 cm (2.7 - 3.8) MV EXCURSION: 17.459 mm (> 18.000) MV EF SLOPE: 99 mm/s (70 - 150) EPSS: 0.4 cm MV E Junior: 1.07 m/s MV DecT: 114 ms MV A Junior: 0.43 m/s MV E/A Ratio: 2.49 RAP: 5.00 mmHg RVSP: 60.06 mmHg FINDINGS -------- Sinus rhythm. This was a technically adequate study. The left ventricular size is normal. There is severe concentric left ventricular hypertrophy. Ove rall left ventricular systolic function is low-normal with, an EF between 50 - 55 %. The right ventricle is moderately enlarged. LA is severely dilated >40 ml/m2 The right atrium is mildly enlarged. Interatrial and interventricular septum intact. The aortic valve is trileaflet and appears structurally normal. There is no evidence of aortic regu rgitation. There is no evidence of aortic stenosis. Moderate mitral regurgitation is present. Moderate to severe tricuspid regurgitation present. There is severe pulmonary hypertension. The r ight ventricular systolic pressure, as measured by Doppler, is 60.06mmHg. Trace/mild (physiologic) pulmonic regurgitation. The aortic root size is normal. There is a small, generalized pericardial effusion present. CONCLUSIONS -------- 1. The left ventricular size is normal. 2. There is severe concentric left ventricular hypertrophy. 3. Overall left ventricular systolic function is low-normal with, an EF between 50 - 55 %. 4. The right ventricle is moderately enlarged. 5. LA is severely dilated >40 ml/m2 6. The right atrium is mildly enlarged. 7. Moderate mitral regurgitation is present. 8. Moderate to severe tricuspid regurgitation present. 9. There is severe pulmonary hypertension. 10. The right ventricular systolic pressure, as measured by Doppler, is 60.06mmHg. 11. Trace/mild (physiologic) pulmonic regurgitation. 12. There is a small, generalized pericardial effusion present. BLOCK CLEANER: Ivana Machado RDCS
--- NOTE | 2021-11-15 17:36 | PN ---
PROGRESS NOTE DATE OF SERVICE: 11/15/2021 This 76-year-old gentleman admitted with acute COVID-19 bilateral interstitial pneumonia with acute hypoxic respiratory failure is not keeping the oxygen, but the patient has been close to hypoxic. Patient is definitely more short of breath today and pulse ox is 88% on 5 L. The patient was started on dexamethasone and Lovenox. The patient is being closely monitored. The patient is not keeping the oxygen. The chest CTA which was personally reviewed by me showed bilateral extensive pneumonic processes highly suggestive of COVID pneumonia. Patient is being closely monitored. Past medical history reviewed. Review of systems could not be taken; the patient is stuporous. CURRENT MEDICATIONS: Reviewed. They include Tylenol, Ventolin, Norvasc, vitamin C, vitamin D3, Lovenox, NovoLog scale, zinc oxide. Doses are reviewed. PHYSICAL EXAMINATION: Patient is conscious but confused. Pulse is 84, blood pressure 150/86, respiration 18. Temperature 99.8, pulse ox 88% on 5 L. HEENT: Conjunctivae normal. Oral mucosa moist. NECK: No jugular venous distention. CARDIOVASCULAR: S1, S2 muffled. RESPIRATION: Breath sounds diminished at the bases. A few scattered rhonchi. ABDOMEN: Soft, nontender. NERVOUS SYSTEM: No focal deficit. LAB STUDIES: WBC 6.3, hemoglobin 12.2, sodium Other labs are noted. ASSESSMENT: 1. Acute COVID-19 infection with acute COVID-19 bilateral interstitial pneumonia with acute hypoxic respiratory failure. 2. Change in mental status, acute metabolic encephalopathy secondary to hypoxic encephalopathy. 3. Anemia, normocytic. 4. Possible chronic obstructive pulmonary disease, acute exacerbation. 5. Thrombocytopenia. 6. Leukopenia, possibly secondary to COVID-19. 7. Hyponatremia. 8. Elevated random glucose. 9. Troponin 0.087, indeterminate, possibly secondary to COVID-19. 10.Hypertension. 11.Rule out coronary artery disease. 12.Obesity with body mass index of 42.6. 13.Elevated inflammatory markers of COVID-19. RECOMMENDATIONS AND DISCUSSION: I recommend to continue current medications, continue with the monitoring, symptomatic treatment. Closely follow with Pulmonary and Infectious Disease. Otherwise, continue the oxygenation. Continue the rest of the medications. Prognosis extremely guarded because of multiple complex medical issues. Further recommendations to follow. See orders for further details. MMODL / IJN: [id number] / TUCKER
[2021-11-15 20:10] LABS: Glucose,Whole Blood 174 mg/dL (75-99)
[2021-11-15] MEDS: FLUTICASONE 220 MCG INHALER INHALATION SCH (21:27)
--- NOTE | 2021-11-15 22:50 | PN ---
PROGRESS NOTE DATE OF SERVICE: 11/15/2021 REASON FOR FOLLOWUP: COVID-19 pneumonia. INTERVAL HISTORY: The patient is afebrile. The patient remains hypoxic, requiring supplemental oxygen. The patient denies having any chest pain. No worsening cough or sputum production. No abdominal pain or diarrhea. PHYSICAL EXAMINATION: Blood pressure 128/64, pulse of 80, temperature of 99.8. He is 88% on 5 L nasal cannula. General description is an elderly male up in the room in no distress. Respiratory system: Unlabored breathing, decreased intensity of breath sounds. No wheeze. Heart S1, S2. Regular rate and rhythm. Abdomen soft, no tenderness. LABS: Hemoglobin is 12.6, white count 6.9, creatinine 1.14. DIAGNOSTIC IMPRESSION AND PLAN: Patient with acute respiratory failure secondary to COVID-19 pneumonia. Patient is currently on dexamethasone, Lovenox, zinc and ascorbic acid; to continue along with respiratory support. Monitor clinical course closely. Continue supportive care. MMODL / IJN: [id number] /
[2021-11-16] MEDS ORDERED: LORazepam 2 MG/ML INJ IV STA (05:03)
[2021-11-16 06:03] LABS: Glucose,Whole Blood 118 mg/dL (75-99)
[2021-11-16] MEDS: INSULIN ASPART (NovoLOG) 100 UNIT/ML VIAL SQ SCH ×4 (06:24→21:23)
[2021-11-16] MEDS: ALBUTEROL HFA INHALER INHALATION SCH ×4 (09:33→20:35)
--- NOTE | 2021-11-16 09:58 | PN ---
PROGRESS NOTE Mr. Urbina is a 76-year-old male who presented with evidence of Covid 19 infection. He has a history of hypertension. He had minimal troponin elevation. He continues to have dyspnea, although according to him, is better. He denies any chest pain. He denies any dizziness or palpitation. He denies any nausea. He had an echocardiogram with Doppler that showed ejection fraction 55% with moderate mitral and moderate severe tricuspid regurgitation and severe pulmonary hypertension of unknown duration or etiology. He continues to be on amlodipine 10 mg daily, Lovenox subcu in addition to dexamethasone. PHYSICAL EXAMINATION: Blood pressure running in the 160s with a heart rate in 60s. No physical examination was done to limit the exposure. IMPRESSION: 1. Covid 19 infection with Covid 19 pneumonia. 2. Hypertension, remains elevated. 3. Tricuspid regurgitation of unknown duration or etiology. RECOMMENDATIONS: We will continue on the amlodipine and I will add lisinopril to his regimen. The patient is anxious to go home. From the cardiac standpoint, no further workup is needed at this time. After he is discharged, he will be followed in the office to evaluate his tricuspid regurgitation and guide his treatment. MMODL / IJN: [id number] /
[2021-11-16 11:55] LABS: Glucose,Whole Blood 117 mg/dL (75-99)
[2021-11-16] MEDS: amLODIPine 10 MG TAB PO SCH (12:04)
[2021-11-16] MEDS: dexAMETHasone 2 MG TAB PO SCH (12:04)
[2021-11-16] MEDS: ENOXAPARIN 40 MG/0.4 ML SYRINGE SQ SCH (12:04)
[2021-11-16] MEDS: ASCORBIC ACID 500 MG TAB PO SCH (12:04)
[2021-11-16] MEDS: CHOLECALCIFEROL 25 MCG (1000 IU) TABLET PO SCH (12:04)
[2021-11-16] MEDS: ZINC SULFATE 220 MG CAP PO SCH (12:05)
[2021-11-16] MEDS: lisinopriL 5 MG TAB PO SCH (12:05)
[2021-11-16] MEDS: ACETAMINOPHEN TAB 325 MG TAB PO PRN (12:29)
--- NOTE | 2021-11-16 13:37 | P.PN ---
Subjective Progress Note Date: 11/16/21 Principal diagnosis: Shortness of breath. Pulmonary consult dated 11/14/2021. 76-year-old male with a history of hypertension, presents to the emergency department at 8:00 in the morning, on November 13. He came in because of complaints of increasing and progressive shortness of breath. He's also complaining of some muscle soreness, and cough. He denied any fever or chills. The patient has been sick for about 10 days or so. The patient's only history is that of hypertension. Does not have a family doctor in this area. The patient apparently tested positive for coronavirus on November 09. He is on vaccinated. The patient's currently on 5 L nasal cannula, with saturations of 94%. Laboratory data includes a white count of 3.1, hemoglobin 12.3, hematocrit 36.4, and platelet count 129,000. D-dimer is 0.68. Sodium 129, potassium 4.1, chlorides 94, CO2 25, anion gap 10, BUN 23, and creatinine 0.91. The patient's troponins were 0.080 and 0.089. Albumin was 3.3. C-reactive protein 4.2. LDH 1009. Coronavirus testing was positive. Chest x-ray shows diffuse bilateral infiltrates. The patient appears not to be in any significant respiratory distress. Progress note dated 11/15/2021. 76-year-old male, seen in consultation yesterday. He was admitted with a diagnosis of coronavirus associated pneumonia. Currently, he's on 5 L nasal cannula. Not receiving any IV fluids. The CT angiogram was negative for pulmonary embolism. His white count 6.9, hemoglobin 12.7, hematocrit 37.2, with a normal platelet count. Sodium 131, potassium 4.5, chlorides 97, CO2 29, BUN 30, creatinine 1.1. The patient was sitting in the room, all dressed, ready to leave. Apparently he is not being discharged. Chest x-ray showed diffuse bilateral infiltrates. Coronavirus testing was positive. Progress note dated 11/16/2021. 76-year-old male, seen today in room 369. The patient had a drop in his saturation, so oxygen was titrated up to 15 L high flow. He sitting in a chair by the bed. He is not manifesting any signs or symptoms of respiratory distress. He is a little lethargic today. His CT angiogram was negative for pulmonary embolism. Yesterday, he was on 5 L nasal cannula. No new labs today other than blood glucose of 117. No recent chest x-ray to report. Medications are reviewed. Objective - Vital Signs Vital signs: Vital Signs Temp 98.4 F 11/16/21 08:00 Pulse 82 11/16/21 08:00 Resp 22 11/16/21 08:00 BP 152/67 11/16/21 08:00 Pulse Ox 82 L 11/16/21 08:00 Intake & Output 11/15/21 11/16/21 11/16/21 18:59 06:59 18:59 Intake Total 930 485 0 Balance 930 485 0 Weight 144 kg Intake: Oral 930 485 0 Other: Voiding Method Toilet # Voids 3 2 1 - Exam No acute distress, oriented 3. Currently, the patient's on 15 L high flow nasal cannula. Saturations are 92%. HEENT examination is grossly unremarkable. Neck supple. Full range of motion. No adenopathy thyromegaly or neck vein distention. Cardiovascular examination reveals regular rhythm rate. S1-S2 normal. No S3 or S4. No discernible murmur noted. Heart rate 82 bpm. Heart sounds are distant. Lungs reveal some bilateral rhonchi. No wheezes or crackles. Breath sounds equal bilaterally. Abdomen soft bowel sounds are heard. No masses or tenderness. Extremities are intact. No cyanosis clubbing or edema. Skin is without rash or lesion. Neurologic examination is brief but nonfocal. - Labs CBC & Chem 7: 11/15/21 07:10 11/15/21 07:10 Labs: Abnormal Lab Results - Last 24 Hours (Table) 11/15/21 11/15/21 11/16/21 Range/Units 16:43 20:08 06:02 POC Glucose (mg/dL) 127 H 174 H 118 H (75-99) mg/dL 11/16/21 Range/Units 11:52 POC Glucose (mg/dL) 117 H (75-99) mg/dL Assessment and Plan Assessment: Acute hypoxemic respiratory failure secondary to coronavirus associated pneumonia. History of hypertension. History of obesity. Plan: Plan dated 11/14/2021. The patient is not a candidate for REM. The patient should get vitamin C, vitamin D3, and zinc, at usual doses. In addition, the patient should get Decadron 6 mg a day, and Lovenox 40 mg subcu daily. We will continue to watch patient closely. He actually asked me to know whether or not he could go home. Prognosis is guarded. We will continue to follow make recommendations were appropriate. His chest x-ray looks bad. Plan dated 11/15/2021. The patient is not a candidate for REM. The patient get vitamin C, vitamin D3, and take in addition, the patient get Lovenox, and Decadron. Currently, he's on 5 L nasal cannula. Saturations are in the high 80s low 90s. The patient was all dressed ready to go home, but apparently is not being discharged. His chest x-ray shows diffuse bilateral infiltrates. There is no pulmonary embolism on CT angiogram. His lab data is reviewed. Plan dated 11/16/2021. The patient was not a candidate for REM. The patient did get vitamins including vitamin C, vitamin D3, and zinc. In addition, the patient is on Lovenox and Decadron. Yesterday, he was on 5 L. Apparently he desaturated, and now is on 15 L high flow nasal O2. CT angiogram was negative for pulmonary embolism. We will continue to follow this patient and make recommendations where appropriate. Prognosis is guarded. Time with Patient: Less than 30
[2021-11-16 16:36] LABS: Glucose,Whole Blood 235 mg/dL (75-99)
[2021-11-16] MEDS: FLUTICASONE 220 MCG INHALER INHALATION SCH ×2 (17:17→20:35)
[2021-11-16 20:32] LABS: Glucose,Whole Blood 171 mg/dL (75-99)
--- NOTE | 2021-11-16 20:34 | PN ---
PROGRESS NOTE DATE OF SERVICE: 11/16/2021 This 76-year-old gentleman who was admitted with acute COVID-19 pneumonia, bilateral interstitial pneumonia, is significantly hypoxic. Patient is on high-flow oxygen 15 L and saturating only at 90. Patient is also complaining some mild fever. Multiple consultants are following the patient closely. The patient has been started on dexamethasone and usual medications as well. The patient is also seen by multiple consultants, including Cardiology, Pulmonology and Infectious Disease. Respiratory support is being continued. Past medical history reviewed. REVIEW OF SYSTEMS: CARDIOVASCULAR SYSTEM: As mentioned earlier. RESPIRATION: As mentioned earlier. GI: No nausea, vomiting. : No dysuria. NERVOUS SYSTEM: No numbness, weakness. CURRENT MEDICATIONS: Reviewed. They include Tylenol, Ventolin, Norvasc, vitamin C, vitamin D3, Lovenox, Flovent, NovoLog, Zestril, Orazinc. Doses are reviewed. PHYSICAL EXAMINATION: Patient is alert, oriented x3. Pulse is 65, blood pressure 129/78, respiration 18, temperature 98.2, pulse ox 90% on 15 L. HEENT: Conjunctivae normal. NECK: No jugular venous distention. CARDIOVASCULAR: S1, S2 muffled. RESPIRATION: Breath sounds diminished at the bases. A few scattered rhonchi. ABDOMEN: Soft. LEGS: No edema. No swelling. NERVOUS SYSTEM: No focal deficit. LABS: Glucose 235. Otherwise, hemoglobin 12.7. Sodium 133, potassium 4.5. ASSESSMENT: 1. Acute COVID-19 infection with acute COVID-19 bilateral interstitial pneumonia with acute hypoxic respiratory failure. 2. Change in mental status, acute metabolic encephalopathy secondary to hypoxic encephalopathy. 3. Anemia, normocytic. 4. Hyponatremia. 5. Possible chronic obstructive pulmonary disease, acute exacerbation. 6. Thrombocytopenia. 7. Leukopenia, possibly secondary to COVID-19. 8. Elevated random glucose. 9. Troponin 0.087, indeterminate, possibly secondary to COVID-19 or coronary artery disease. 10.Hypertension. 11.Obesity with body mass index of 42.6. 12.Elevated inflammatory markers of COVID-19. RECOMMENDATIONS AND DISCUSSION: I recommend to continue current medications, continue with the monitoring, symptomatic treatment. The patient is running some fever. I would recommend a serum procalcitonin as well as UA. As mentioned earlier, overall prognosis is extremely guarded because of multiple complex medical issues, including hypoxia. Will discuss with the family. Closely follow with multiple consultants, as mentioned earlier. Prognosis guarded. MMODL / IJN: [id number] /
[2021-11-16 23:39] LABS: Amorphous Sediment,Urine Rare /hpf; Appearance,Urine Clear (Clear); Bacteria,Urine Rare /hpf; Bilirubin,Urine Negative (Negative); Blood,Urine Small (Negative); Color,Urine Yellow; Glucose,Urine (UA) Negative (Negative); Ketones,Urine Negative (Negative); Leukocyte Esterase,Urine Negative (Negative); Mucus,Urine Rare /hpf; Nitrite,Urine Negative (Negative); PH, Urine 5.5 (5.0-8.0); Protein,Urine 1+ (Negative); RBC,Urine 1 /hpf (0-5); Specific Gravity,Urine 1.023 (1.001-1.035); Squamous Epithelial Cell,Urine <1 /hpf (0-4); Urobilinogen,Urine <2.0 mg/dL (<2.0); WBC,Urine 2 /hpf (0-5)
--- NOTE | 2021-11-17 01:40 | PN ---
PROGRESS NOTE DATE OF SERVICE: 11/16/2021 REASON FOR FOLLOWUP: COVID-19 pneumonia. INTERVAL HISTORY: The patient is afebrile. The patient is breathing comfortably. The patient denies having any chest pain. No worsening cough or sputum production. No abdominal pain or diarrhea. PHYSICAL EXAMINATION: Blood pressure 129/58 with a pulse of 75, temperature 98.2. He is 90% on 15 L high- flow oxygen. General description is an elderly male up in the bed in no distress. Respiratory system: Unlabored breathing, coarse breath sounds, no wheeze. Heart S1, S2. Regular rate and rhythm. Abdomen soft, no tenderness. LABS: No new labs obtained today. DIAGNOSTIC IMPRESSION AND PLAN: Patient with acute respiratory failure secondary to COVID-19 pneumonia and did have slight worsening of his respiratory status. He is currently on dexamethasone, Lovenox, zinc and ascorbic acid. May benefit from baricitinib. Will discuss with primary. Continue supportive care. MMODL / IJN: [id number] /
[2021-11-17 06:13] LABS: Glucose,Whole Blood 118 mg/dL (75-99)
[2021-11-17] MEDS: INSULIN ASPART (NovoLOG) 100 UNIT/ML VIAL SQ SCH ×4 (06:16→20:56)
[2021-11-17] MEDS: ALBUTEROL HFA INHALER INHALATION SCH ×4 (07:22→20:04)
[2021-11-17] MEDS: FLUTICASONE 220 MCG INHALER INHALATION SCH ×2 (07:22→20:04)
[2021-11-17 07:38] LABS: Basophils % (A) 0 %; Eosinophils % (A) 0 %; HCT 37.7 % (39.0-53.0); HGB 12.4 gm/dL (13.0-17.5); Lymphocytes # (A) 0.4 k/uL (1.0-4.8); Lymphocytes % (A) 6 %; MCH 30.3 pg (25.0-35.0); MCHC 32.8 g/dL (31.0-37.0); MCV 92.4 fL (80.0-100.0); Mean Platelet Volume 7.4; Monocytes # (A) 0.2 k/uL (0-1.0); Monocytes % (A) 3 %; Neutrophils # (A) 7.1 k/uL (1.3-7.7); Neutrophils % (A) 91 %; Platelet Count 210 k/uL (150-450); RBC 4.08 m/uL (4.30-5.90); RDW 13.2 % (11.5-15.5); WBC 7.8 k/uL (3.8-10.6)
--- NOTE | 2021-11-17 07:39 | XR ---
EXAMINATION TYPE: XR chest 1V portable DATE OF EXAM: 11/17/2021 COMPARISON: 11/13/2021 HISTORY: Covid TECHNIQUE: Single frontal view of the chest is obtained. FINDINGS: There is been marked interval worsening in the diffuse infiltrates bilaterally. There is n o pneumothorax or large. Heart size is prominent are intact IMPRESSION: Marked interval worsening in bilateral lung infiltrates
[2021-11-17 07:54] LABS: Albumin 3.2 g/dL (3.5-5.0); Calcium 8.7 mg/dL (8.4-10.2); Potassium 4.3 mmol/L (3.5-5.1); Total Bilirubin 0.8 mg/dL (0.2-1.3); Total Protein 6.1 g/dL (6.3-8.2)
[2021-11-17] MEDS: dexAMETHasone 2 MG TAB PO SCH (09:00)
[2021-11-17] MEDS: amLODIPine 10 MG TAB PO SCH (09:00)
[2021-11-17] MEDS: CHOLECALCIFEROL 25 MCG (1000 IU) TABLET PO SCH (09:00)
[2021-11-17] MEDS: lisinopriL 5 MG TAB PO SCH (09:00)
[2021-11-17] MEDS: ENOXAPARIN 40 MG/0.4 ML SYRINGE SQ SCH (09:00)
[2021-11-17] MEDS: ZINC SULFATE 220 MG CAP PO SCH (09:00)
[2021-11-17] MEDS: ASCORBIC ACID 500 MG TAB PO SCH (09:00)
[2021-11-17 11:57] LABS: Glucose,Whole Blood 122 mg/dL (75-99)
--- NOTE | 2021-11-17 15:13 | P.PN ---
Subjective Progress Note Date: 11/17/21 Principal diagnosis: Shortness of breath. Pulmonary consult dated 11/14/2021. 76-year-old male with a history of hypertension, presents to the emergency department at 8:00 in the morning, on November 13. He came in because of complaints of increasing and progressive shortness of breath. He's also complaining of some muscle soreness, and cough. He denied any fever or chills. The patient has been sick for about 10 days or so. The patient's only history is that of hypertension. Does not have a family doctor in this area. The patient apparently tested positive for coronavirus on November 09. He is on vaccinated. The patient's currently on 5 L nasal cannula, with saturations of 94%. Laboratory data includes a white count of 3.1, hemoglobin 12.3, hematocrit 36.4, and platelet count 129,000. D-dimer is 0.68. Sodium 129, potassium 4.1, chlorides 94, CO2 25, anion gap 10, BUN 23, and creatinine 0.91. The patient's troponins were 0.080 and 0.089. Albumin was 3.3. C-reactive protein 4.2. LDH 1009. Coronavirus testing was positive. Chest x-ray shows diffuse bilateral infiltrates. The patient appears not to be in any significant respiratory distress. Progress note dated 11/15/2021. 76-year-old male, seen in consultation yesterday. He was admitted with a diagnosis of coronavirus associated pneumonia. Currently, he's on 5 L nasal cannula. Not receiving any IV fluids. The CT angiogram was negative for pulmonary embolism. His white count 6.9, hemoglobin 12.7, hematocrit 37.2, with a normal platelet count. Sodium 131, potassium 4.5, chlorides 97, CO2 29, BUN 30, creatinine 1.1. The patient was sitting in the room, all dressed, ready to leave. Apparently he is not being discharged. Chest x-ray showed diffuse bilateral infiltrates. Coronavirus testing was positive. Progress note dated 11/16/2021. 76-year-old male, seen today in room 369. The patient had a drop in his saturation, so oxygen was titrated up to 15 L high flow. He sitting in a chair by the bed. He is not manifesting any signs or symptoms of respiratory distress. He is a little lethargic today. His CT angiogram was negative for pulmonary embolism. Yesterday, he was on 5 L nasal cannula. No new labs today other than blood glucose of 117. No recent chest x-ray to report. Medications are reviewed. Progress note dated 11/17/2021. 76-year-old male, seen again in room 369. The patient remains on 15 L high flow nasal O2. He's not receiving any IV fluids. In our opinion, the patient is a candidate for [facility], as he is being transitioned to a nonrebreather mask. The patient is sitting at the bedside. He has mild tachypnea. White count 7.8, hemoglobin 12.4, hematocrit 37.7, and platelet count 210,000. Sodium 138, potassium 4.3, chlorides 102, CO2 29, anion gap 7, BUN 42, with a creatinine of 1.12. AST 107, ALT 50. The patient's chest x-ray, done today, shows a marked interval worsening in his bilateral lung infiltrates, hence, the requirement for greater concentrations of oxygen. Objective - Vital Signs Vital signs: Vital Signs Temp 97.1 F L 11/17/21 13:07 Pulse 64 11/17/21 13:07 Resp 20 11/17/21 13:07 BP 140/91 11/17/21 13:07 Pulse Ox 87 L 11/17/21 13:07 Intake & Output 11/16/21 11/17/21 11/17/21 18:59 06:59 18:59 Intake Total 360 240 240 Output Total 300 Balance 360 -60 240 Weight 145 kg Intake: Oral 360 240 240 Output: Urine 300 Other: Voiding Method Toilet Toilet # Voids 1 1 1 # Bowel Movements 1 - Exam No acute distress, oriented 3. The patient will be placed on a nonrebreather mass. Saturations are only 87%. HEENT examination is grossly unremarkable. Neck supple. Full range of motion. No adenopathy thyromegaly or neck vein distention. Cardiovascular examination reveals regular rhythm rate. S1-S2 normal. No S3 or S4. No discernible murmur noted. Heart rate 64 bpm. Heart sounds are distant. Lungs reveal some bilateral coarse rhonchi. No wheezes or crackles. Breath sounds equal bilaterally. Abdomen soft bowel sounds are heard. No masses or tenderness. Extremities are intact. No cyanosis clubbing or edema. Skin is without rash or lesion. Neurologic examination is brief but nonfocal. - Labs CBC & Chem 7: 11/17/21 06:51 11/17/21 06:51 Labs: Abnormal Lab Results - Last 24 Hours (Table) 11/16/21 11/16/21 11/16/21 Range/Units 16:35 20:29 20:45 RBC (4.30-5.90) m/uL Hgb (13.0-17.5) gm/dL Hct (39.0-53.0) % Lymphocytes # (1.0-4.8) k/uL BUN (9-20) mg/dL Glucose (74-99) mg/dL POC Glucose (mg/dL) 235 H 171 H (75-99) mg/dL AST (17-59) U/L ALT (4-49) U/L Total Protein (6.3-8.2) g/dL Albumin (3.5-5.0) g/dL Procalcitonin 0.19 H (0.02-0.09) ng/mL Urine Protein (Negative) Urine Blood (Negative) Amorphous Sediment (None) /hpf Urine Bacteria (None) /hpf Urine Mucus (None) /hpf 11/16/21 11/17/21 11/17/21 Range/Units 23:15 06:11 06:51 RBC 4.08 L (4.30-5.90) m/uL Hgb 12.4 L (13.0-17.5) gm/dL Hct 37.7 L (39.0-53.0) % Lymphocytes # 0.4 L (1.0-4.8) k/uL BUN (9-20) mg/dL Glucose (74-99) mg/dL POC Glucose (mg/dL) 118 H (75-99) mg/dL AST (17-59) U/L ALT (4-49) U/L Total Protein (6.3-8.2) g/dL Albumin (3.5-5.0) g/dL Procalcitonin (0.02-0.09) ng/mL Urine Protein 1+ H (Negative) Urine Blood Small H (Negative) Amorphous Sediment Rare H (None) /hpf Urine Bacteria Rare H (None) /hpf Urine Mucus Rare H (None) /hpf 11/17/21 11/17/21 Range/Units 06:51 11:55 RBC (4.30-5.90) m/uL Hgb (13.0-17.5) gm/dL Hct (39.0-53.0) % Lymphocytes # (1.0-4.8) k/uL BUN 42 H (9-20) mg/dL Glucose 123 H (74-99) mg/dL POC Glucose (mg/dL) 122 H (75-99) mg/dL AST 107 H (17-59) U/L ALT 50 H (4-49) U/L Total Protein 6.1 L (6.3-8.2) g/dL Albumin 3.2 L (3.5-5.0) g/dL Procalcitonin (0.02-0.09) ng/mL Urine Protein (Negative) Urine Blood (Negative) Amorphous Sediment (None) /hpf Urine Bacteria (None) /hpf Urine Mucus (None) /hpf Assessment and Plan Assessment: Acute hypoxemic respiratory failure secondary to coronavirus associated pneumonia. History of hypertension. History of obesity. Plan: Plan dated 11/14/2021. The patient is not a candidate for REM. The patient should get vitamin C, vitam in D3, and zinc, at usual doses. In addition, the patient should get Decadron 6 mg a day, and Lovenox 40 mg subcu daily. We will continue to watch patient closely. He actually asked me to know whether or not he could go home. Prognosis is guarded. We will continue to follow make recommendations were appropriate. His chest x-ray looks bad. Plan dated 11/15/2021. The patient is not a candidate for REM. The patient get vitamin C, vitamin D3, and take in addition, the patient get Lovenox, and Decadron. Currently, he's on 5 L nasal cannula. Saturations are in the high 80s low 90s. The patient was all dressed ready to go home, but apparently is not being discharged. His chest x-ray shows diffuse bilateral infiltrates. There is no pulmonary embolism on CT angiogram. His lab data is reviewed. Plan dated 11/16/2021. The patient was not a candidate for REM. The patient did get vitamins including vitamin C, vitamin D3, and zinc. In addition, the patient is on Lovenox and Decadron. Yesterday, he was on 5 L. Apparently he desaturated, and now is on 15 L high flow nasal O2. CT angiogram was negative for pulmonary embolism. We will continue to follow this patient and make recommendations where appropriate. Prognosis is guarded. Plan dated 11/17/2021. The patient was not a candidate for REM. The patient is a candidate for JULIO. The patient will get vitamin C, vitamin D3, and zinc. In addition, the patient will get Lovenox, and Decadron. The patient's currently on 15 L high flow nasal cannula. Additional recommendations and suggestions are forthcoming. We will continue to follow and make recommendations where appropriate. Prognosis is guarded. Time with Patient: Less than 30
[2021-11-17 16:38] LABS: Glucose,Whole Blood 145 mg/dL (75-99)
[2021-11-17] MEDS: BARICITINIB 2 MG TABLET PO SCH (18:06)
--- NOTE | 2021-11-17 19:14 | PN ---
PROGRESS NOTE DATE OF SERVICE: 11/17/2021 This 76-year-old gentleman who was admitted with acute COVID-19 infection also had severe hypoxemia. No chest pain. No palpitations. No fever. The most recent chest x- ray, which was reviewed personally by me, showed acute extensive bilateral interstitial infiltrates suggestive of acute COVID-19 pneumonia. Currently the patient is on 15 L, saturating around 93%. The patient is on the usual medications of COVID-19, including dexamethasone and Lovenox. Past medical history reviewed. REVIEW OF SYSTEMS: CARDIOVASCULAR SYSTEM: No angina. RESPIRATION: As mentioned earlier. GI: As mentioned earlier. : No dysuria. NERVOUS SYSTEM: No numbness, weakness. CURRENT MEDICATIONS: Reviewed. They include Tylenol, Ventolin, Norvasc, vitamin C, vitamin D. Doses and other medications are reviewed. PHYSICAL EXAMINATION: Patient alert and oriented x3. Pulse 66, blood pressure 153/72, respiration 22, temperature 97.7, pulse ox 94% on 15 L nasal cannula. HEENT: Conjunctivae normal. NECK: No jugular venous distention. CARDIOVASCULAR: S1, S2 muffled. RESPIRATION: Breath sounds diminished at the bases. Scattered rhonchi and crackles. ABDOMEN: Soft, nontender. LEGS: No edema. No swelling. NERVOUS SYSTEM: No focal deficit. LABS: WBC 7.3, hemoglobin 12.4. Glucose noted. ASSESSMENT: 1. Acute COVID-19 infection with acute COVID-19 bilateral interstitial pneumonia with acute hypoxic respiratory failure. 2. Change in mental status, acute metabolic acidosis secondary to hypoxic encephalopathy. 3. Anemia, normocytic. 4. Hyponatremia. 5. Chronic obstructive pulmonary disease, acute exacerbation. 6. Thrombocytopenia. 7. Leukopenia, possibly secondary to COVID-19. 8. Elevated random glucose. 9. Troponin 0.087, indeterminate, possibly secondary to COVID-19 or coronary artery disease. 10.Hypertension. 11.Obesity with body mass index of 42.6. 12.Elevated inflammatory markers of COVID-19. 13.FULL CODE. RECOMMENDATIONS AND DISCUSSION: In this 76-year-old gentleman who presented with multiple complex medical issues, we will monitor the patient closely, continue the bronchodilators, continue with the Lovenox. Continue the rest of the medications. Closely follow. Continue with high- flow oxygen. Otherwise, prognosis is guarded because of multiple complex medical issues. Further recommendations to follow. MMODL / IJN: [id number] /
[2021-11-17 20:16] LABS: Glucose,Whole Blood 163 mg/dL (75-99)
--- NOTE | 2021-11-17 23:29 | PN ---
PROGRESS NOTE DATE OF SERVICE: 11/17/2021 REASON FOR FOLLOWUP: Covid 19 pneumonia. INTERVAL HISTORY: Patient is afebrile. The patient is breathing slightly comfortably on high-flow oxygen though nonrebreather. The patient denies any chest pain. No nausea, no vomiting. No abdominal pain or any diarrhea. PHYSICAL EXAMINATION: Blood pressure is 138/63, pulse of 73, temperature 98.5. He is 97% on nonrebreather. General description is an elderly male up in the chair in no distress. Respiratory system: Unlabored breathing, coarse breath sounds bilaterally. No wheeze. Heart S1, S2. Regular rate and rhythm. Abdomen soft, no tenderness. LABS: Hemoglobin is 12.5, white count 7.8, creatinine is 1.12. DIAGNOSTIC IMPRESSION AND PLAN: Patient with acute respiratory failure, acute COVID-19 pneumonia. The patient has been started on baricitinib, along with dexamethasone and Lovenox, zinc and ascorbic acid and respiratory support. Prognosis remains to be guarded. MMODL / IJN: [id number] /
[2021-11-18 02:24] LABS: Glucose,Whole Blood 148 mg/dL (75-99)
[2021-11-18 06:10] LABS: Glucose,Whole Blood 144 mg/dL (75-99)
[2021-11-18] MEDS: INSULIN ASPART (NovoLOG) 100 UNIT/ML VIAL SQ SCH ×4 (06:16→20:04)
[2021-11-18 08:44] LABS: Basophils % (A) 0 %; Eosinophils % (A) 0 %; HCT 36.5 % (39.0-53.0); HGB 12.5 gm/dL (13.0-17.5); Lymphocytes # (A) 0.6 k/uL (1.0-4.8); Lymphocytes % (A) 8 %; MCH 31.4 pg (25.0-35.0); MCHC 34.3 g/dL (31.0-37.0); MCV 91.8 fL (80.0-100.0); Mean Platelet Volume 7.4; Monocytes # (A) 0.3 k/uL (0-1.0); Monocytes % (A) 4 %; Neutrophils # (A) 6.4 k/uL (1.3-7.7); Neutrophils % (A) 86 %; Platelet Count 253 k/uL (150-450); RBC 3.98 m/uL (4.30-5.90); RDW 13.3 % (11.5-15.5); WBC 7.4 k/uL (3.8-10.6)
[2021-11-18] MEDS: dexAMETHasone 2 MG TAB PO SCH (08:45)
[2021-11-18] MEDS: ZINC SULFATE 220 MG CAP PO SCH (08:45)
[2021-11-18] MEDS: CHOLECALCIFEROL 25 MCG (1000 IU) TABLET PO SCH (08:45)
[2021-11-18] MEDS: amLODIPine 10 MG TAB PO SCH (08:46)
[2021-11-18] MEDS: ASCORBIC ACID 500 MG TAB PO SCH (08:46)
[2021-11-18] MEDS: lisinopriL 5 MG TAB PO SCH (08:46)
[2021-11-18] MEDS: ENOXAPARIN 40 MG/0.4 ML SYRINGE SQ SCH (08:46)
[2021-11-18 09:06] LABS: ALT 43 U/L (4-49); AST 81 U/L (17-59); African American GFR (CKD) >90 (>60 ml/min/1.73 sqM); Albumin 2.9 g/dL (3.5-5.0); Alkaline Phosphatase 49 U/L (38-126); Anion Gap 2 mmol/L; Blood Urea Nitrogen 41 mg/dL (9-20); Calcium 8.7 mg/dL (8.4-10.2); Carbon Dioxide 31 mmol/L (22-30); Chloride 104 mmol/L (98-107); Glucose 111 mg/dL (74-99); Non-African American GFR(CKD) 79 (>60 ml/min/1.73 sqM); Potassium 4.3 mmol/L (3.5-5.1); Sodium 137 mmol/L (137-145); Total Bilirubin 0.6 mg/dL (0.2-1.3); Total Protein 5.7 g/dL (6.3-8.2)
[2021-11-18] MEDS: FLUTICASONE 220 MCG INHALER INHALATION SCH ×2 (09:09→19:20)
[2021-11-18] MEDS: ALBUTEROL HFA INHALER INHALATION SCH ×4 (09:09→19:20)
[2021-11-18 11:50] LABS: Glucose,Whole Blood 129 mg/dL (75-99)
--- NOTE | 2021-11-18 12:18 | CT ---
EXAMINATION TYPE: CT brain wo con CT DLP: 1099.4 mGycm, Automated exposure control for dose reduction was used. DATE OF EXAM: 11/18/2021 11:52 AM COMPARISON: None.. CLINICAL INDICATION:Male, 76 years old with history of fall/increased confusion; PHH, fall/increased confusion TECHNIQUE: Brain: Multiple axial CT images of the brain were obtained without IV contrast. FINDINGS: Brain: Extra-axial spaces: No abnormal extra-axial fluid collections.4 Ventricular system: Within normal limits Cerebral parenchyma: No acute intraparenchymal hemorrhage or mass effect. The ambrocio-white junction is well differentiated. Scattered hypoattenuating areas are seen within the white matter. Cerebellum: Unremarkable. Mass effect: No evidence of midline shift. Intracranial vasculature: Atherosclerotic calcifications of the intracranial vessels. Soft tissues: Normal. Calvarium/osseous structures: No depressed skull fracture. Paranasal sinuses and mastoid air cells: Mucosal thickening of the ethmoid air cells. Visualized orbits: Orbital contents are intact. IMPRESSION: 1. No acute intracranial process. 2. Nonspecific white matter changes, likely secondary to chronic small vessel ischemic disease.
--- NOTE | 2021-11-18 15:18 | P.PN ---
Subjective Progress Note Date: 11/18/21 Principal diagnosis: Shortness of breath. Pulmonary consult dated 11/14/2021. 76-year-old male with a history of hypertension, presents to the emergency department at 8:00 in the morning, on November 13. He came in because of complaints of increasing and progressive shortness of breath. He's also complaining of some muscle soreness, and cough. He denied any fever or chills. The patient has been sick for about 10 days or so. The patient's only history is that of hypertension. Does not have a family doctor in this area. The patient apparently tested positive for coronavirus on November 09. He is on vaccinated. The patient's currently on 5 L nasal cannula, with saturations of 94%. Laboratory data includes a white count of 3.1, hemoglobin 12.3, hematocrit 36.4, and platelet count 129,000. D-dimer is 0.68. Sodium 129, potassium 4.1, chlorides 94, CO2 25, anion gap 10, BUN 23, and creatinine 0.91. The patient's troponins were 0.080 and 0.089. Albumin was 3.3. C-reactive protein 4.2. LDH 1009. Coronavirus testing was positive. Chest x-ray shows diffuse bilateral infiltrates. The patient appears not to be in any significant respiratory distress. Progress note dated 11/15/2021. 76-year-old male, seen in consultation yesterday. He was admitted with a diagnosis of coronavirus associated pneumonia. Currently, he's on 5 L nasal cannula. Not receiving any IV fluids. The CT angiogram was negative for pulmonary embolism. His white count 6.9, hemoglobin 12.7, hematocrit 37.2, with a normal platelet count. Sodium 131, potassium 4.5, chlorides 97, CO2 29, BUN 30, creatinine 1.1. The patient was sitting in the room, all dressed, ready to leave. Apparently he is not being discharged. Chest x-ray showed diffuse bilateral infiltrates. Coronavirus testing was positive. Progress note dated 11/16/2021. 76-year-old male, seen today in room 369. The patient had a drop in his saturation, so oxygen was titrated up to 15 L high flow. He sitting in a chair by the bed. He is not manifesting any signs or symptoms of respiratory distress. He is a little lethargic today. His CT angiogram was negative for pulmonary embolism. Yesterday, he was on 5 L nasal cannula. No new labs today other than blood glucose of 117. No recent chest x-ray to report. Medications are reviewed. Progress note dated 11/17/2021. 76-year-old male, seen again in room 369. The patient remains on 15 L high flow nasal O2. He's not receiving any IV fluids. In our opinion, the patient is a candidate for JULIO, as he is being transitioned to a nonrebreather mask. The patient is sitting at the bedside. He has mild tachypnea. White count 7.8, hemoglobin 12.4, hematocrit 37.7, and platelet count 210,000. Sodium 138, potassium 4.3, chlorides 102, CO2 29, anion gap 7, BUN 42, with a creatinine of 1.12. AST 107, ALT 50. The patient's chest x-ray, done today, shows a marked interval worsening in his bilateral lung infiltrates, hence, the requirement for greater concentrations of oxygen. Progress note dated 11/18/2021. The patient is again seen in room 369. The patient's receiving oxygen via 15 L high flow nasal cannula, and is also using a partial rebreather mask, from time to time. He is not receiving any IV fluids. His saturations are in the low 90s. According to the sitter, the patient apparently took his oxygen off, got out of bed, and fell on his head. Head CT was negative. His white count was 7.4, hemoglobin 12.5, hematocrit 36.5, and platelet count 253,000. Sodium 137, potassium 4.3, chlorides 104, CO2 31, BUN 41, creatinine 0.95. The patient is sitting in bed. He does seem a bit confused. He is currently receiving ap propriate medications, including, vitamin C, vitamin D3, zinc, Decadron, Lovenox, and JULIO. Objective - Vital Signs Vital signs: Vital Signs Temp 98 F 11/18/21 12:17 Pulse 68 11/18/21 12:17 Resp 24 11/18/21 12:17 BP 141/72 11/18/21 12:17 Pulse Ox 96 11/18/21 12:17 Intake & Output 11/17/21 11/18/21 11/18/21 18:59 06:59 18:59 Intake Total 240 240 0 Output Total 400 250 Balance 240 -160 -250 Weight 129.5 kg Intake: Oral 240 240 0 Output: Urine 400 250 Other: Voiding Method Toilet Urinal Urinal # Voids 1 1 # Bowel Movements 1 - Exam No acute distress, oriented 3. The patient is on 15 L high flow nasal cannula, and a partial rebreather mask. Saturations are 95%. HEENT examination is grossly unremarkable. Neck supple. Full range of motion. No adenopathy thyromegaly or neck vein distention. Cardiovascular examination reveals regular rhythm rate. S1-S2 normal. No S3 or S4. No discernible murmur noted. Heart rate 68 bpm. Heart sounds are distant. Lungs reveal some bilateral coarse rhonchi. No wheezes or crackles. Breath sounds equal bilaterally. Saturations are 96%. Abdomen soft bowel sounds are heard. No masses or tenderness. Extremities are intact. No cyanosis clubbing or edema. Skin is without rash or lesion. Neurologic examination is brief but nonfocal. - Labs CBC & Chem 7: 11/18/21 08:20 11/18/21 08:20 Labs: Abnormal Lab Results - Last 24 Hours (Table) 11/17/21 11/17/21 11/18/21 Range/Units 16:36 20:15 02:13 RBC (4.30-5.90) m/uL Hgb (13.0-17.5) gm/dL Hct (39.0-53.0) % Lymphocytes # (1.0-4.8) k/uL Carbon Dioxide (22-30) mmol/L BUN (9-20) mg/dL Glucose (74-99) mg/dL POC Glucose (mg/dL) 145 H 163 H 148 H (75-99) mg/dL Magnesium (1.6-2.3) mg/dL AST (17-59) U/L Total Protein (6.3-8.2) g/dL Albumin (3.5-5.0) g/dL 11/18/21 11/18/21 11/18/21 Range/Units 06:09 08:20 08:20 RBC 3.98 L (4.30-5.90) m/uL Hgb 12.5 L (13.0-17.5) gm/dL Hct 36.5 L (39.0-53.0) % Lymphocytes # 0.6 L (1.0-4.8) k/uL Carbon Dioxide 31 H (22-30) mmol/L BUN 41 H (9-20) mg/dL Glucose 111 H (74-99) mg/dL POC Glucose (mg/dL) 144 H (75-99) mg/dL Magnesium (1.6-2.3) mg/dL AST 81 H (17-59) U/L Total Protein 5.7 L (6.3-8.2) g/dL Albumin 2.9 L (3.5-5.0) g/dL 11/18/21 11/18/21 Range/Units 11:49 12:01 RBC (4.30-5.90) m/uL Hgb (13.0-17.5) gm/dL Hct (39.0-53.0) % Lymphocytes # (1.0-4.8) k/uL Carbon Dioxide (22-30) mmol/L BUN (9-20) mg/dL Glucose (74-99) mg/dL POC Glucose (mg/dL) 129 H (75-99) mg/dL Magnesium 2.4 H (1.6-2.3) mg/dL AST (17-59) U/L Total Protein (6.3-8.2) g/dL Albumin (3.5-5.0) g/dL Assessment and Plan Assessment: Acute hypoxemic respiratory failure secondary to coronavirus associated pneumonia. History of hypertension. History of obesity. Plan: Plan dated 11/14/2021. The patient is not a candidate for REM. The patient should get vitamin C, vitamin D3, and zinc, at usual doses. In addition, the patient should get Decadron 6 mg a day, and Lovenox 40 mg subcu daily. We will continue to watch patient closely. He actually asked me to know whether or not he could go home. Prognosis is guarded. We will continue to follow make recommendations were appropriate. His chest x-ray looks bad. Plan dated 11/15/2021. The patient is not a candidate for REM. The patient get vitamin C, vitamin D3, and take in addition, the patient get Lovenox, and Decadron. Currently, he's on 5 L nasal cannula. Saturations are in the high 80s low 90s. The patient was all dressed ready to go home, but apparently is not being discharged. His chest x-ray shows diffuse bilateral infiltrates. There is no pulmonary embolism on CT angiogram. His lab data is reviewed. Plan dated 11/16/2021. The patient was not a candidate for REM. The patient did get vitamins including vitamin C, vitamin D3, and zinc. In addition, the patient is on Lovenox and Decadron. Yesterday, he was on 5 L. Apparently he desaturated, and now is on 15 L high flow nasal O2. CT angiogram was negative for pulmonary embolism. We will continue to follow this patient and make recommendations where appropriate. Prognosis is guarded. Plan dated 11/17/2021. The patient was not a candidate for REM. The patient is a candidate for JULIO. The patient will get vitamin C, vitamin D3, and zinc. In addition, the patient will get Lovenox, and Decadron. The patient's currently on 15 L high flow nasal cannula. Additional recommendations and suggestions are forthcoming. We will continue to follow and make recommendations where appropriate. Prognosis is guarded. Plan dated 11/18/2021. The patient was not a candidate for REM. The patient is a candidate for JULIO. In addition, the patient is on vitamin C, vitamin D3, and zinc. The patient is also getting usual doses of Decadron and Lovenox. The patient is currently on 15 L high flow nasal cannula, and a partial rebreather mask. Additional recommendations and suggestions are forthcoming. Prognosis is guarded. We will continue to follow make recommendations were appropriate. He had a head CT because he fell, hit his head, which was negative. Time with Patient: Less than 30
[2021-11-18 16:32] LABS: Glucose,Whole Blood 181 mg/dL (75-99)
[2021-11-18] MEDS: BARICITINIB 2 MG TABLET PO SCH (17:15)
--- NOTE | 2021-11-18 17:45 | PN ---
PROGRESS NOTE DATE OF SERVICE: 11/18/2021 REASON FOR FOLLOWUP: COVID-19 pneumonia. INTERVAL HISTORY: Patient is afebrile. The patient is breathing slightly comfortably. Still requiring 15 L high-flow oxygen. Denies any chest pain. No worsening cough or sputum production. No abdominal pain or diarrhea. PHYSICAL EXAMINATION: Blood pressure 141/72 with a pulse of 58, temperature 98. He is 93% on 6 L high flow oxygen. General description is an elderly male up in the bed in no distress. Respiratory system: Unlabored breathing, decreased intensity in bases with no wheeze. Heart S1, S2. Regular rate and rhythm. Abdomen soft, no tenderness. LABS: Hemoglobin is 12.5, white count 7.4, creatinine 0.95. DIAGNOSTIC IMPRESSION AND PLAN: Patient with acute respiratory failure secondary to Covid 19 pneumonia in this patient to continue with baricitinib, dexamethasone, Lovenox, zinc and ascorbic acid. Did have minimal clinical improvement. Continue supportive care. MMODL / IJN: [id number] /
--- NOTE | 2021-11-18 18:30 | PN ---
PROGRESS NOTE DATE OF SERVICE: 11/18/2021 This 76-year-old gentleman who was admitted with acute COVID-19 infection also had severe hypoxemia. The patient has got bilateral interstitial pneumonia. Patient also had change in mental status. Patient continues to be confused and not following the treatment. CT scan of the brain was ordered by me and personally reviewed which showed no acute process, nonspecific white matter changes, likely chronic small-vessel disease and cerebellar atherosclerosis. Labwise, hemoglobin is 12.5. Inflammatory markers of COVID-19 are elevated. Patient has been seen by multiple consultants and the patient is on dexamethasone as well as Lovenox. Past medical history reviewed. Review of systems could not be taken; the patient is confused. CURRENT MEDICATIONS: Reviewed. They include Tylenol, Ventolin, Norvasc, vitamin C. Doses and other medications are reviewed. PHYSICAL EXAMINATION: Patient is conscious, confused. Pulse 64, blood pressure 138/98, respiration 20, temperature 97.6, pulse ox 98% on 15 L high-flow along with non-rebreather. HEENT: Conjunctivae normal. NECK: No jugular venous distention. CARDIOVASCULAR: S1, S2 muffled. RESPIRATION: Breath sounds diminished at the bases. A few scattered rhonchi. ABDOMEN: Soft, nontender. LEGS: No edema. No swelling. NERVOUS SYSTEM: No focal deficit. LABS: WBC 7.4, hemoglobin 12.4. Sodium 137, potassium 4.3 and total bilirubin is 2.4. Albumin is 2.9. ASSESSMENT: 1. Acute COVID-19 infection with acute COVID-19 bilateral interstitial pneumonia with acute hypoxic respiratory failure. 2. Change in mental status, acute metabolic encephalopathy secondary to acute hypoxic encephalopathy. 3. Anemia, normocytic. 4. Hyponatremia. 5. Chronic obstructive pulmonary disease, acute exacerbation. 6. Thrombocytopenia. 7. Leukopenia, possibly secondary to COVID-19. 8. Elevated random glucose. 9. Troponin 0.087, indeterminate, possibly secondary to COVID-19 or coronary artery disease. 10.Hypertension. 11.Obesity with body mass index of 42.6. 12.Elevated inflammatory markers of COVID-19. 13.FULL CODE. RECOMMENDATIONS AND DISCUSSION: I recommend to continue current medications, continue with the monitoring, symptomatic treatment. CT brain is noted. Otherwise, I recommend continuing with the bronchodilators. Continue steroids. Continue with Lovenox and closely follow with multiple consultants. Prognosis extremely guarded because of multiple complex medical issues. Further recommendations to follow. MMODL / IJN: [id number] /
[2021-11-18 19:56] LABS: Glucose,Whole Blood 135 mg/dL (75-99)
[2021-11-19 05:58] LABS: Glucose,Whole Blood 118 mg/dL (75-99)
[2021-11-19] MEDS: INSULIN ASPART (NovoLOG) 100 UNIT/ML VIAL SQ SCH ×4 (06:04→20:16)
[2021-11-19 07:55] LABS: ALT 44 U/L (4-49); AST 67 U/L (17-59); African American GFR (CKD) >90 (>60 ml/min/1.73 sqM); Albumin 2.8 g/dL (3.5-5.0); Alkaline Phosphatase 49 U/L (38-126); Anion Gap 1 mmol/L; Blood Urea Nitrogen 38 mg/dL (9-20); Calcium 8.7 mg/dL (8.4-10.2); Carbon Dioxide 33 mmol/L (22-30); Chloride 104 mmol/L (98-107); Glucose 113 mg/dL (74-99); Non-African American GFR(CKD) 79 (>60 ml/min/1.73 sqM); Potassium 4.5 mmol/L (3.5-5.1); Sodium 138 mmol/L (137-145); Total Bilirubin 0.6 mg/dL (0.2-1.3); Total Protein 5.6 g/dL (6.3-8.2)
[2021-11-19 08:12] LABS: HCT 37.7 % (39.0-53.0); HGB 12.3 gm/dL (13.0-17.5); MCH 30.2 pg (25.0-35.0); MCHC 32.5 g/dL (31.0-37.0); Mean Platelet Volume 7.4; Platelet Count 277 k/uL (150-450); RBC 4.05 m/uL (4.30-5.90); RDW 13.3 % (11.5-15.5); WBC 6.1 k/uL (3.8-10.6)
[2021-11-19] MEDS: ZINC SULFATE 220 MG CAP PO SCH (08:22)
[2021-11-19] MEDS: ENOXAPARIN 40 MG/0.4 ML SYRINGE SQ SCH (08:22)
[2021-11-19] MEDS: lisinopriL 5 MG TAB PO SCH (08:22)
[2021-11-19] MEDS: CHOLECALCIFEROL 25 MCG (1000 IU) TABLET PO SCH (08:23)
[2021-11-19] MEDS: amLODIPine 10 MG TAB PO SCH (08:23)
[2021-11-19] MEDS: ASCORBIC ACID 500 MG TAB PO SCH (08:23)
[2021-11-19] MEDS: dexAMETHasone 2 MG TAB PO SCH (08:23)
[2021-11-19] MEDS: FLUTICASONE 220 MCG INHALER INHALATION SCH ×2 (08:52→21:35)
[2021-11-19] MEDS: ALBUTEROL HFA INHALER INHALATION SCH ×4 (08:52→21:35)
[2021-11-19 09:16] LABS: Band Neutrophils % 1 %; Lymphocytes # (M) 0.67 k/uL (1.0-4.8); Metamyelocytes # (M) 0.06 k/uL (0); Metamyelocytes % 1 %; Monocytes # (M) 0.31 k/uL (0-1.0); Neutrophils % (M) 82 %; Nucleated Red Blood Cells 0 /100 WBC (0-0); Total Cells Counted 200
[2021-11-19 12:09] LABS: Glucose,Whole Blood 125 mg/dL (75-99)
--- NOTE | 2021-11-19 13:42 | P.PN ---
Subjective Progress Note Date: 11/19/21 On today's evaluation of 11/19/2021, the patient is being seen for a follow-up. The patient remains on 15 L of oxygen by nasal cannula in addition to 100% nonrebreather facemask. His current pulse ox is ranging between 97-90%. He is feeling well. He has no specific complaints. He reports that is improving. I asked him to eliminate the 100% nonrebreather and keep the patient on 15 L nasal cannula. We are going to continue to monitor his oxygenation. Otherwise, the patient is tolerating diet. No nausea. No vomiting. No diarrhea. No abdominal pain. No altered mentation. His follow-up chest x-ray from today is improved and the patient remains on a combination of Decadron and Baricitinib per protocol. He is also on Lovenox for DVT prophylaxis.Blood work from today shows a white cell count of 6.1 hemoglobin of 12.3, BUN is at 38 with a creatinine of 0.9 and sodium level is at 138. Rezulin electrodes are all within normal limits. Blood sugars of 125. Objective - Vital Signs Vital signs: Vital Signs Temp 98 F 11/19/21 12:30 Pulse 65 11/19/21 12:30 Resp 18 11/19/21 12:30 BP 134/63 11/19/21 12:30 Pulse Ox 90 L 11/19/21 12:30 Intake & Output 11/18/21 11/19/21 11/19/21 18:59 06:59 18:59 Intake Total 0 240 180 Output Total 650 725 Balance -650 -485 180 Weight 133 kg Intake: Oral 0 240 180 Output: Urine 650 725 Other: Voiding Method Urinal Urinal Urinal # Voids 1 - Exam No acute distress, oriented 3. The patient is on 15 L high flow nasal cannula, and a partial rebreather mask. Saturations are 95%. HEENT examination is grossly unremarkable. Neck supple. Full range of motion. No adenopathy thyromegaly or neck vein distention. Cardiovascular examination reveals regular rhythm rate. S1-S2 normal. No S3 or S4. No discernible murmur noted. Heart rate 68 bpm. Heart sounds are distant. Lungs reveal some bilateral coarse rhonchi. No wheezes or crackles. Breath sounds equal bilaterally. Saturations are 96%. Abdomen soft bowel sounds are heard. No masses or tenderness. Extremities are intact. No cyanosis clubbing or edema. Skin is without rash or lesion. Neurologic examination is brief but nonfocal. - Labs CBC & Chem 7: 11/19/21 06:22 11/19/21 06:22 Labs: Abnormal Lab Results - Last 24 Hours (Table) 11/18/21 11/18/21 11/19/21 Range/Units 16:30 19:54 05:57 RBC (4.30-5.90) m/uL Hgb (13.0-17.5) gm/dL Hct (39.0-53.0) % Lymphocytes # (Manual) (1.0-4.8) k/uL Metamyelocytes # (Man) (0) k/uL Carbon Dioxide (22-30) mmol/L BUN (9-20) mg/dL Glucose (74-99) mg/dL POC Glucose (mg/dL) 181 H 135 H 118 H (75-99) mg/dL AST (17-59) U/L Total Protein (6.3-8.2) g/dL Albumin (3.5-5.0) g/dL 11/19/21 11/19/21 11/19/21 Range/Units 06:22 06:22 12:04 RBC 4.05 L (4.30-5.90) m/uL Hgb 12.3 L (13.0-17.5) gm/dL Hct 37.7 L (39.0-53.0) % Lymphocytes # (Manual) 0.67 L (1.0-4.8) k/uL Metamyelocytes # (Man) 0.06 H (0) k/uL Carbon Dioxide 33 H (22-30) mmol/L BUN 38 H (9-20) mg/dL Glucose 113 H (74-99) mg/dL POC Glucose (mg/dL) 125 H (75-99) mg/dL AST 67 H (17-59) U/L Total Protein 5.6 L (6.3-8.2) g/dL Albumin 2.8 L (3.5-5.0) g/dL Assessment and Plan Plan: 1 acute hypoxic respiratory failure second according to related pneumonia. The patient is currently on 15 L about 2 by nasal cannula in addition to partial nonrebreather facemask and his pulse ox is around 97% PEEP chest x-rays showing improvement in the bilateral pulmonary infiltrates and the patient is quite comfortable maintained on Decadron embolus to the per protocol examination of vitamin C and vitamin D and zinc. 2 acute COVID 19 with pneumonia 3 hypertension 4 obesity Plan Clinically improving keep the patient a high flow nasal cannula and it may be nonrebreather facemask continue the combination of Decadron and Baricitinib Continue vitamin C and vitamin D and zinc supplements Continue Lovenox 40 mg subcu 40 prophylaxis Clinically improving and the patient is tolerating his diet. Advance diet as tolerated. We'll continue to follow.
[2021-11-19] MEDS: BARICITINIB 2 MG TABLET PO SCH (15:51)
[2021-11-19 16:43] LABS: Glucose,Whole Blood 140 mg/dL (75-99)
[2021-11-19 19:53] LABS: Glucose,Whole Blood 184 mg/dL (75-99)
--- NOTE | 2021-11-19 21:49 | P.PN ---
Subjective Progress Note Date: 11/19/21 11/19/2021 Patient evaluated today sitting up in the bed. He denies any chest pain, does complain of a cough and some shortness of breath at rest. He is satting 90% on a 15L HF cannula, he is trialing a wean off the rebreather mask today. Blood pressure 140/65, heart rate 61, afebrile. Labs today hgb 12.3, sodium 138, potassium 4.5, CO2 33, BUN 28, creatinine 0.95, AST 67, ALT 44, blood sugar in the 140's. Patient is being followed closely by ID and pulmonary services. He is on oral dexamethasone, baricitinib, zinc, vitamins, lovenox. Patient has been having moments of confusion at night, which seem to be improving. ROS Constitutional: Denied any fatigue denied any fever. Cardio vascular: denied any chest pain, palpitations Gastrointestinal denied any nausea vomiting Pulmonary: Reports cough, reports shortness of breath which he feels is improving Neurologic denied any new focal deficits All inpatient medications were reviewed and appropriate changes in these medications as dictated in the interval history and assessment and plan. PHYSICAL EXAMINATION: GENERAL: The patient is alert and oriented x3, not in any acute distress. Well developed, well nourished. HEENT: Pupils are round and equally reacting to light. EOMI. No scleral icterus. No conjunctival pallor. Normocephalic, atraumatic. No pharyngeal erythema. No thyromegaly. CARDIOVASCULAR: S1 and S2 present. No murmurs, rubs, or gallops. PULMONARY: Coarse scattered rhonchi, bilateral ABDOMEN: Soft, nontender, nondistended, normoactive bowel sounds. No palpable organomegaly. MUSCULOSKELETAL: No joint swelling or deformity. EXTREMITIES: No cyanosis, clubbing, or pedal edema. NEUROLOGICAL: Gross neurological examination did not reveal any focal deficits. SKIN: No rashes. Assessment and plan Assessment Acute hypoxic respiratory failure secondary to Covid 19 pneumonia on 15L HF nasal cannula Hypertension Obesity Hyperglycemia secondary to steroid use GI Prophylaxiss DVT Prophylaxis: Lovenox Plan Continue decadron, baricitinib, zinc, vitamins Continue bronchodilators Continue accuchecks and insulin coverage Repeat labs/inflammatory markers in AM Continue all other supportive care Prognosis remains guarded Objective - Vital Signs Vital signs: Vital Signs Temp 98 F 11/19/21 08:10 Pulse 61 11/19/21 08:10 Resp 20 11/19/21 08:10 BP 140/65 11/19/21 08:10 Pulse Ox 97 11/19/21 08:10 Intake & Output 11/18/21 11/19/21 11/19/21 18:59 06:59 18:59 Intake Total 0 240 180 Output Total 650 725 Balance -650 -485 180 Weight 133 kg Intake: Oral 0 240 180 Output: Urine 650 725 Other: Voiding Method Urinal Urinal Urinal # Voids 1 - Labs CBC & Chem 7: 11/19/21 06:22 11/19/21 06:22 Labs: Abnormal Lab Results - Last 24 Hours (Table) 11/18/21 11/18/21 11/18/21 Range/Units 11:49 12:01 16:30 RBC (4.30-5.90) m/uL Hgb (13.0-17.5) gm/dL Hct (39.0-53.0) % Lymphocytes # (Manual) (1.0-4.8) k/uL Metamyelocytes # (Man) (0) k/uL Carbon Dioxide (22-30) mmol/L BUN (9-20) mg/dL Glucose (74-99) mg/dL POC Glucose (mg/dL) 129 H 181 H (75-99) mg/dL Magnesium 2.4 H (1.6-2.3) mg/dL AST (17-59) U/L Total Protein (6.3-8.2) g/dL Albumin (3.5-5.0) g/dL 11/18/21 11/19/21 11/19/21 Range/Units 19:54 05:57 06:22 RBC 4.05 L (4.30-5.90) m/uL Hgb 12.3 L (13.0-17.5) gm/dL Hct 37.7 L (39.0-53.0) % Lymphocytes # (Manual) 0.67 L (1.0-4.8) k/uL Metamyelocytes # (Man) 0.06 H (0) k/uL Carbon Dioxide (22-30) mmol/L BUN (9-20) mg/dL Glucose (74-99) mg/dL POC Glucose (mg/dL) 135 H 118 H (75-99) mg/dL Magnesium (1.6-2.3) mg/dL AST (17-59) U/L Total Protein (6.3-8.2) g/dL Albumin (3.5-5.0) g/dL 11/19/21 Range/Units 06:22 RBC (4.30-5.90) m/uL Hgb (13.0-17.5) gm/dL Hct (39.0-53.0) % Lymphocytes # (Manual) (1.0-4.8) k/uL Metamyelocytes # (Man) (0) k/uL Carbon Dioxide 33 H (22-30) mmol/L BUN 38 H (9-20) mg/dL Glucose 113 H (74-99) mg/dL POC Glucose (mg/dL) (75-99) mg/dL Magnesium (1.6-2.3) mg/dL AST 67 H (17-59) U/L Total Protein 5.6 L (6.3-8.2) g/dL Albumin 2.8 L (3.5-5.0) g/dL
--- NOTE | 2021-11-19 23:04 | PN ---
PROGRESS NOTE DATE OF SERVICE: 11/19/2021 REASON FOR FOLLOWUP: Covid 19 pneumonia. INTERVAL HISTORY: Patient is afebrile. The patient is breathing slightly comfortably. Still requiring high-flow oxygen. Patient denies any chest pain. No worsening cough. No sputum production. No nausea, no vomiting. No abdominal pain or diarrhea. PHYSICAL EXAMINATION: Blood pressure 146/81 with a pulse of 111, temperature 98.1. He is 93% on 15 L high- flow oxygen. General description is an elderly male lying in bed in no distress. Respiratory system: Unlabored breathing, decreased intensity in breath sounds, with no wheeze. Heart S1, S2. Regular rate and rhythm. Abdomen soft, no tenderness. LAB: Hemoglobin is 12.1, white count 6.1. BUN of 38, creatinine 0.95. DIAGNOSTIC IMPRESSION AND PLAN: Patient with acute COVID-19 pneumonia with slow clinical improvement. The patient currently covered with baricitinib, dexamethasone, Lovenox, zinc and ascorbic acid and monitor clinical course closely. MMODL / IJN: [id number] /
[2021-11-20 06:13] LABS: Glucose,Whole Blood 94 mg/dL (75-99)
[2021-11-20] MEDS: INSULIN ASPART (NovoLOG) 100 UNIT/ML VIAL SQ SCH ×4 (06:21→20:45)
[2021-11-20 08:47] LABS: Basophils % (A) 0 %; Eosinophils % (A) 0 %; HCT 38.6 % (39.0-53.0); HGB 12.6 gm/dL (13.0-17.5); Lymphocytes # (A) 0.8 k/uL (1.0-4.8); Lymphocytes % (A) 9 %; MCH 30.4 pg (25.0-35.0); MCHC 32.6 g/dL (31.0-37.0); MCV 93.3 fL (80.0-100.0); Mean Platelet Volume 7.3; Monocytes # (A) 0.3 k/uL (0-1.0); Monocytes % (A) 3 %; Neutrophils % (A) 85 %; Platelet Count 276 k/uL (150-450); RBC 4.14 m/uL (4.30-5.90); RDW 13.3 % (11.5-15.5); WBC 9.3 k/uL (3.8-10.6)
[2021-11-20] MEDS: ALBUTEROL HFA INHALER INHALATION SCH ×5 (09:04→19:41)
[2021-11-20] MEDS: FLUTICASONE 220 MCG INHALER INHALATION SCH ×2 (09:04→19:42)
[2021-11-20 09:06] LABS: ALT 50 U/L (4-49); AST 72 U/L (17-59); African American GFR (CKD) >90 (>60 ml/min/1.73 sqM); Albumin 2.8 g/dL (3.5-5.0); Alkaline Phosphatase 48 U/L (38-126); Anion Gap 4 mmol/L; Blood Urea Nitrogen 35 mg/dL (9-20); C Reactive Protein 1.9 mg/dL (<1.0); Calcium 8.7 mg/dL (8.4-10.2); Carbon Dioxide 32 mmol/L (22-30); Chloride 104 mmol/L (98-107); Glucose 95 mg/dL (74-99); LDH 1975 U/L (313-618); Non-African American GFR(CKD) 86 (>60 ml/min/1.73 sqM); Potassium 4.6 mmol/L (3.5-5.1); Sodium 140 mmol/L (137-145); Total Bilirubin 0.7 mg/dL (0.2-1.3); Total Protein 5.6 g/dL (6.3-8.2)
[2021-11-20] MEDS: ENOXAPARIN 40 MG/0.4 ML SYRINGE SQ SCH (09:52)
[2021-11-20] MEDS: dexAMETHasone 2 MG TAB PO SCH (09:52)
[2021-11-20] MEDS: lisinopriL 5 MG TAB PO SCH (09:52)
[2021-11-20] MEDS: amLODIPine 10 MG TAB PO SCH (09:52)
[2021-11-20] MEDS: CHOLECALCIFEROL 25 MCG (1000 IU) TABLET PO SCH (09:53)
[2021-11-20] MEDS: ASCORBIC ACID 500 MG TAB PO SCH (09:53)
[2021-11-20] MEDS: ZINC SULFATE 220 MG CAP PO SCH (09:53)
[2021-11-20 12:04] LABS: Glucose,Whole Blood 104 mg/dL (75-99)
--- NOTE | 2021-11-20 15:01 | P.PN ---
Subjective Progress Note Date: 11/20/21 11/19/2021 Patient evaluated today sitting up in the bed. He denies any chest pain, does complain of a cough and some shortness of breath at rest. He is satting 90% on a 15L HF cannula, he is trialing a wean off the rebreather mask today. Blood pressure 140/65, heart rate 61, afebrile. Labs today hgb 12.3, sodium 138, potassium 4.5, CO2 33, BUN 28, creatinine 0.95, AST 67, ALT 44, blood sugar in the 140's. Patient is being followed closely by ID and pulmonary services. He is on oral dexamethasone, baricitinib, zinc, vitamins, lovenox. Patient has been having moments of confusion at night, which seem to be improving. 11/20/2021 Patient sitting up in the chair today. He was talking on the phone while only on the 15L HF NC and desatted into the 70's. He will continue on the HF cannula and the NRB due to this. Overall though no acute events overnight and patient has no complaints of chest pain. He has a mild congested productive cough, and shortness of breath mild at rest. Being followed closely by pulmonary services. Vitals today; afebrile, heart rate 75, blood pressure 175/85, oxygenation 92- 93%. Labs reviewed today show a hemoglobin of 12.6, d-dimer 20.86, AST 72, ALT 50, LDH 1975, CRP 1.9. Continues on decadron, baricitinib, zinc, vitamins, lovenox. Pt is alert x3 at the time of my assessment. ROS Constitutional: Denied any fatigue denied any fever. Cardio vascular: denied any chest pain, palpitations Gastrointestinal denied any nausea vomiting Pulmonary: Reports cough, reports shortness of breath which he feels is improving Neurologic denied any new focal deficits All inpatient medications were reviewed and appropriate changes in these medications as dictated in the interval history and assessment and plan. PHYSICAL EXAMINATION: GENERAL: The patient is alert and oriented x3, not in any acute distress. Well developed, well nourished. HEENT: Pupils are round and equally reacting to light. EOMI. No scleral icterus. No conjunctival pallor. Normocephalic, atraumatic. No pharyngeal erythema. No thyromegaly. CARDIOVASCULAR: S1 and S2 present. No murmurs, rubs, or gallops. PULMONARY: Coarse scattered rhonchi, bilateral ABDOMEN: Soft, nontender, nondistended, normoactive bowel sounds. No palpable organomegaly. MUSCULOSKELETAL: No joint swelling or deformity. EXTREMITIES: No cyanosis, clubbing, mild pedal edema. NEUROLOGICAL: Gross neurological examination did not reveal any focal deficits. SKIN: No rashes. Assessment and plan Assessment Acute hypoxic respiratory failure secondary to Covid 19 pneumonia on 15L HF nasal cannula and 15L NRB Elevated DD; no evidence for PE Hypertension Obesity Hyperglycemia secondary to steroid use GI Prophylaxiss DVT Prophylaxis: Lovenox Plan LE Doppler ordered Continue decadron, baricitinib, zinc, vitamins Continue bronchodilators Continue accuchecks and insulin coverage Repeat labs/inflammatory markers in AM Continue all other supportive care Prognosis remains guarded Objective - Vital Signs Vital signs: Vital Signs Temp 97.4 F L 11/20/21 09:56 Pulse 66 11/20/21 09:56 Resp 18 11/20/21 09:56 BP 164/79 11/20/21 09:56 Pulse Ox 95 11/20/21 09:56 Intake & Output 11/19/21 11/20/21 11/20/21 18:59 06:59 18:59 Intake Total 360 118 Output Total 250 250 Balance 110 -250 118 Weight 133 kg Intake: Oral 360 118 Output: Urine 250 250 Other: Voiding Method Urinal Urinal # Voids 1 # Bowel Movements 1 - Labs CBC & Chem 7: 11/20/21 07:24 11/20/21 07:24 Labs: Abnormal Lab Results - Last 24 Hours (Table) 11/19/21 11/19/21 11/20/21 Range/Units 16:42 19:52 07:24 RBC 4.14 L (4.30-5.90) m/uL Hgb 12.6 L (13.0-17.5) gm/dL Hct 38.6 L (39.0-53.0) % Neutrophils # 8.0 H (1.3-7.7) k/uL Lymphocytes # 0.8 L (1.0-4.8) k/uL D-Dimer (<0.60) mg/L FEU Carbon Dioxide (22-30) mmol/L BUN (9-20) mg/dL POC Glucose (mg/dL) 140 H 184 H (75-99) mg/dL AST (17-59) U/L ALT (4-49) U/L Lactate Dehydrogenase (313-618) U/L C-Reactive Protein (<1.0) mg/dL Total Protein (6.3-8.2) g/dL Albumin (3.5-5.0) g/dL 11/20/21 11/20/21 11/20/21 Range/Units 07:24 07:24 12:02 RBC (4.30-5.90) m/uL Hgb (13.0-17.5) gm/dL Hct (39.0-53.0) % Neutrophils # (1.3-7.7) k/uL Lymphocytes # (1.0-4.8) k/uL D-Dimer 20.86 H (<0.60) mg/L FEU Carbon Dioxide 32 H (22-30) mmol/L BUN 35 H (9-20) mg/dL POC Glucose (mg/dL) 104 H (75-99) mg/dL AST 72 H (17-59) U/L ALT 50 H (4-49) U/L Lactate Dehydrogenase 1975 H (313-618) U/L C-Reactive Protein 1.9 H (<1.0) mg/dL Total Protein 5.6 L (6.3-8.2) g/dL Albumin 2.8 L (3.5-5.0) g/dL
--- NOTE | 2021-11-20 15:12 | P.PN ---
Subjective Progress Note Date: 11/20/21 On 11/20/2021 the patient is still on 15 L oxygen nasal cannula along with 100% nonrebreather facemask. I attended to take off his 100% nonrebreather facemask yesterday and the patient desaturated and his pulse ox up in the low 70s. Based on that, he is using both oxygen sources. Is sitting up on a chair. He seems to be comfortable and his breathing is nonlabored at this point in time. The patient remains on Decadron and Baricitinib combination per the protocol. The patient is also on Lovenox 40 mg subcu on a daily basis. He remains on NovoLog for sliding scale coverage. He is on albuterol HFA on an as needed basis. He is showing a white cell count of 9.3 with a hemoglobin of 12.6 and a platelet count of 276, his elevation of his elevated at 1975 with a CRP level of 1.9. Note that his LDH level is higher compared to yesterday. CRP level has dropped. D-dimer however is at 20.8 and this has increased significantly. I think is reasonable to check his Doppler of the lower extremities to rule out DVTs. Otherwise, the patient is doing well. He states that he is feeling fine. He denies having any complaints. No nausea. No vomiting. No diarrhea. He has a good appetite. Objective - Vital Signs Vital signs: Vital Signs Temp 97.8 F 11/20/21 12:59 Pulse 75 11/20/21 12:59 Resp 28 H 11/20/21 12:59 BP 175/85 11/20/21 12:59 Pulse Ox 93 L 11/20/21 14:13 Intake & Output 11/19/21 11/20/21 11/20/21 18:59 06:59 18:59 Intake Total 360 118 Output Total 250 250 300 Balance 110 -250 -182 Weight 133 kg Intake: Oral 360 118 Output: Urine 250 250 300 Other: Voiding Method Urinal Urinal # Voids 1 1 # Bowel Movements 1 - Exam No acute distress, oriented 3. The patient is on 15 L high flow nasal cannula, and a partial rebreather mask. Saturations are 95%. HEENT examination is grossly unremarkable. Neck supple. Full range of motion. No adenopathy thyromegaly or neck vein distention. Cardiovascular examination reveals regular rhythm rate. S1-S2 normal. No S3 or S4. No discernible murmur noted. Heart rate 68 bpm. Heart sounds are distant. Lungs reveal some bilateral coarse rhonchi. No wheezes or crackles. Breath sounds equal bilaterally. Saturations are 96%. Abdomen soft bowel sounds are heard. No masses or tenderness. Extremities are intact. No cyanosis clubbing or edema. Skin is without rash or lesion. Neurologic examination is brief but nonfocal. - Labs CBC & Chem 7: 11/20/21 07:24 11/20/21 07:24 Labs: Abnormal Lab Results - Last 24 Hours (Table) 11/19/21 11/19/21 11/20/21 Range/Units 16:42 19:52 07:24 RBC 4.14 L (4.30-5.90) m/uL Hgb 12.6 L (13.0-17.5) gm/dL Hct 38.6 L (39.0-53.0) % Neutrophils # 8.0 H (1.3-7.7) k/uL Lymphocytes # 0.8 L (1.0-4.8) k/uL D-Dimer (<0.60) mg/L FEU Carbon Dioxide (22-30) mmol/L BUN (9-20) mg/dL POC Glucose (mg/dL) 140 H 184 H (75-99) mg/dL AST (17-59) U/L ALT (4-49) U/L Lactate Dehydrogenase (313-618) U/L C-Reactive Protein (<1.0) mg/dL Total Protein (6.3-8.2) g/dL Albumin (3.5-5.0) g/dL 11/20/21 11/20/21 11/20/21 Range/Units 07:24 07:24 12:02 RBC (4.30-5.90) m/uL Hgb (13.0-17.5) gm/dL Hct (39.0-53.0) % Neutrophils # (1.3-7.7) k/uL Lymphocytes # (1.0-4.8) k/uL D-Dimer 20.86 H (<0.60) mg/L FEU Carbon Dioxide 32 H (22-30) mmol/L BUN 35 H (9-20) mg/dL POC Glucose (mg/dL) 104 H (75-99) mg/dL AST 72 H (17-59) U/L ALT 50 H (4-49) U/L Lactate Dehydrogenase 1975 H (313-618) U/L C-Reactive Protein 1.9 H (<1.0) mg/dL Total Protein 5.6 L (6.3-8.2) g/dL Albumin 2.8 L (3.5-5.0) g/dL Assessment and Plan Plan: 1 acute hypoxic respiratory failure second according to related pneumonia. The patient is currently on 15 L in addition to 100% nonrebreather facemask. Unable to wean off the facemask because of desaturations. He remains on both oxygen source. LDH level is on the rise. CRP level is low. D-dimer is on the rise. Rule out underlying DVT. Doppler of the lower extremity will be ordered. Clinically, the patient's breathing is nonlabored. He feels that he is doing well and he denies having any interval worsening of shortness of breath. Nevertheless, his vaccination has remained unchanged and rather stable. 2 acute COVID 19 with pneumonia 3 hypertension 4 obesity Plan Clinically the patient is staying compared to yesterday. Unable to wean off the facemask and the patient is currently on both oxygen sources keep the patient a high flow nasal cannula in addition to the nonrebreather facemask continue the combination of Decadron and Baricitinib Continue vitamin C and vitamin D and zinc supplements Continue Lovenox 40 mg subcu 40 prophylaxis Obtain Doppler lower extremities Monitor inflammatory markers LDH and d-dimer were elevated Clinically improving and the patient is tolerating his diet. Advance diet as tolerated. We'll continue to follow.
--- NOTE | 2021-11-20 15:56 | US ---
EXAMINATION TYPE: US venous doppler duplex LE DATE OF EXAM: 11/20/2021 3:29 PM COMPARISON: NONE CLINICAL HISTORY: elevated DD. Elevated D-Dimer, pain SIDE PERFORMED: Bilateral TECHNIQUE: The lower extremity deep venous system is examined utilizing real time linear array sonog kaci with graded compression, doppler sonography and color-flow sonography. VESSELS IMAGED: Common Femoral Vein Deep Femoral Vein Greater Saphenous Vein * Femoral Vein Popliteal Vein Small Saphenous Vein * Proximal Calf Veins (* superficial vessels) There is normal flow, compressibility, vascular waveforms. Right Leg: Negative for DVT, Childs's Cyst= 6.5 x 1.0 x 4.5 cm Left Leg: Negative for DVT, Childs's Cyst= 7.4 x 1.8 x 4.4 cm IMPRESSION: No evident deep venous thrombosis within the lower extremities from the level of the knee s centrally. Bilateral Childs's cysts are present.
[2021-11-20 16:59] LABS: Glucose,Whole Blood 130 mg/dL (75-99)
[2021-11-20] MEDS: BARICITINIB 2 MG TABLET PO SCH (17:01)
[2021-11-20 20:28] LABS: Glucose,Whole Blood 136 mg/dL (75-99)
--- NOTE | 2021-11-20 22:23 | PN ---
PROGRESS NOTE DATE OF SERVICE: 11/20/2021 REASON FOR FOLLOWUP: COVID-19 pneumonia. INTERVAL HISTORY: The patient is afebrile. The patient remains on high-flow non-rebreather. The patient denies having any chest pain. No worsening cough or sputum production. No abdominal pain or diarrhea. PHYSICAL EXAMINATION: Blood pressure 150/82 with a pulse of 99, temperature 97.8. He is 92% on non- rebreather. General description is an elderly male up in the chair in no distress. Respiratory system: Unlabored breathing, decreased intensity of breath sounds. No wheeze. Heart S1, S2. Regular rate and rhythm. Abdomen soft, no tenderness. LABS: Hemoglobin is 12.6, white count 9.3, creatinine 0.85. DIAGNOSTIC IMPRESSION AND PLAN: Patient with acute respiratory failure secondary to COVID-19 pneumonia. This patient's condition remains critical. Patient to continue baricitinib, dexamethasone, Lovenox, zinc and ascorbic acid along with respiratory support. Prognosis remains guarded. Continue with supportive care. MMODL / IJN: [id number] /
[2021-11-21 06:33] LABS: Glucose,Whole Blood 92 mg/dL (75-99)
[2021-11-21] MEDS: INSULIN ASPART (NovoLOG) 100 UNIT/ML VIAL SQ SCH ×4 (06:43→21:09)
[2021-11-21 08:33] LABS: Basophils % (A) 0 %; Eosinophils % (A) 0 %; HCT 40.2 % (39.0-53.0); HGB 12.7 gm/dL (13.0-17.5); Lymphocytes # (A) 0.9 k/uL (1.0-4.8); Lymphocytes % (A) 10 %; MCH 29.5 pg (25.0-35.0); MCHC 31.6 g/dL (31.0-37.0); MCV 93.5 fL (80.0-100.0); Mean Platelet Volume 7.2; Monocytes # (A) 0.3 k/uL (0-1.0); Monocytes % (A) 3 %; Neutrophils # (A) 7.9 k/uL (1.3-7.7); Neutrophils % (A) 86 %; Platelet Count 264 k/uL (150-450); RDW 13.2 % (11.5-15.5); WBC 9.2 k/uL (3.8-10.6)
[2021-11-21] MEDS: ALBUTEROL HFA INHALER INHALATION SCH ×4 (08:38→20:52)
[2021-11-21] MEDS: FLUTICASONE 220 MCG INHALER INHALATION SCH ×2 (08:38→20:52)
[2021-11-21] MEDS: ENOXAPARIN 40 MG/0.4 ML SYRINGE SQ SCH (08:42)
[2021-11-21] MEDS: lisinopriL 5 MG TAB PO SCH (08:43)
[2021-11-21] MEDS: CHOLECALCIFEROL 25 MCG (1000 IU) TABLET PO SCH (08:43)
[2021-11-21] MEDS: amLODIPine 10 MG TAB PO SCH (08:43)
[2021-11-21] MEDS: dexAMETHasone 2 MG TAB PO SCH (08:43)
[2021-11-21] MEDS: ASCORBIC ACID 500 MG TAB PO SCH (08:43)
[2021-11-21] MEDS: ZINC SULFATE 220 MG CAP PO SCH (08:43)
[2021-11-21 08:48] LABS: ALT 49 U/L (4-49); AST 65 U/L (17-59); African American GFR (CKD) >90 (>60 ml/min/1.73 sqM); Albumin 2.9 g/dL (3.5-5.0); Alkaline Phosphatase 52 U/L (38-126); Anion Gap 3 mmol/L; Blood Urea Nitrogen 35 mg/dL (9-20); Calcium 8.9 mg/dL (8.4-10.2); Carbon Dioxide 32 mmol/L (22-30); Chloride 106 mmol/L (98-107); Glucose 91 mg/dL (74-99); Non-African American GFR(CKD) 80 (>60 ml/min/1.73 sqM); Potassium 4.5 mmol/L (3.5-5.1); Sodium 141 mmol/L (137-145)
[2021-11-21 11:41] LABS: Glucose,Whole Blood 144 mg/dL (75-99)
--- NOTE | 2021-11-21 11:42 | P.PN ---
Subjective Progress Note Date: 11/21/21 On 11/20/2021 the patient is still on 15 L oxygen nasal cannula along with 100% nonrebreather facemask. I attended to take off his 100% nonrebreather facemask yesterday and the patient desaturated and his pulse ox up in the low 70s. Based on that, he is using both oxygen sources. Is sitting up on a chair. He seems to be comfortable and his breathing is nonlabored at this point in time. The patient remains on Decadron and Baricitinib combination per the protocol. The patient is also on Lovenox 40 mg subcu on a daily basis. He remains on NovoLog for sliding scale coverage. He is on albuterol HFA on an as needed basis. He is showing a white cell count of 9.3 with a hemoglobin of 12.6 and a platelet count of 276, his elevation of his elevated at 1975 with a CRP level of 1.9. Note that his LDH level is higher compared to yesterday. CRP level has dropped. D-dimer however is at 20.8 and this has increased significantly. I think is reasonable to check his Doppler of the lower extremities to rule out DVTs. Otherwise, the patient is doing well. He states that he is feeling fine. He de nies having any complaints. No nausea. No vomiting. No diarrhea. He has a good appetite On 11/21/2021 patient seen in follow-up on selective care unit, he remains on high flow oxygen at 15 L and 100% nonrebreather mask, his pulse ox is 90-95%, patient at times removes his oxygen, and desaturates to 70% and takes quite a while to recover, there is a safety counselor at the bedside to remind him to keep his oxygen on and to make sure that he goes to the bathroom with his oxygen, right now at rest she does not appear to be in any acute distress, lung sounds reveal bibasilar crackles, no wheezing, no complaints of chest discomfort, he states he has some nasal congestion would like some saline spray, his been afebrile, blood pressure has been stable. No acute events overnight. His was also admitted yesterday with COVID-19 pneumonia he is in the room on 4 S. Patient is awake and alert, oriented 3, seems a bit irritable, but no acute distress, he is responding appropriately to questions. No nausea vomiting or diarrhea, no abdominal pain, abdomen is soft, tolerating oral intake.He remains on Baricitinib, Decadron 6 mg daily, and Lovenox 40 mg once daily. Studies from yesterday's venous Dopplers were negative for DVT. Objective - Vital Signs Vital signs: Vital Signs Temp 97.5 F L 11/21/21 07:50 Pulse 66 11/21/21 07:50 Resp 18 11/21/21 08:00 BP 105/66 11/21/21 07:50 Pulse Ox 95 11/21/21 08:40 Intake & Output 11/20/21 11/21/21 11/21/21 18:59 06:59 18:59 Intake Total 118 485 240 Output Total 450 Balance -332 485 240 Intake: Oral 118 485 240 Output: Urine 450 Other: Voiding Method Urinal Urinal Urinal # Voids 1 1 - Exam GENERAL EXAM: Alert, very pleasant, 76-year-old white male, on 15 L per high f low nasal cannula and nonrebreather mask, with a pulse ox of 91-93% comfortable in no apparent distress. HEAD: Normocephalic/atraumatic. EYES: Normal reaction of pupils, equal size. Conjunctiva pink, sclera white. NOSE: Clear with pink turbinates. THROAT: No erythema or exudates. NECK: No masses, no JVD, no thyroid enlargement, no adenopathy. CHEST: No chest wall deformity. Symmetrical expansion. LUNGS: Equal air entry with limited crackles CVS: Regular rate and rhythm, normal S1 and S2, no gallops, no murmurs, no rubs ABDOMEN: Soft, nontender. No hepatosplenomegaly, normal bowel sounds, no guarding or rigidity. EXTREMITIES: No clubbing, no edema, no cyanosis, 2+ pulses and upper and lower extremities. MUSCULOSKELETAL: Muscle strength and tone normal. SPINE: No scoliosis or deformity SKIN: No rashes CENTRAL NERVOUS SYSTEM: Alert and oriented -3. No focal deficits, tone is normal in all 4 extremities. PSYCHIATRIC: Alert and oriented -3. Appropriate affect. Intact judgment and i nsight. - Labs CBC & Chem 7: 11/21/21 07:17 11/21/21 07:17 Labs: Abnormal Lab Results - Last 24 Hours (Table) 11/20/21 11/20/21 11/20/21 Range/Units 12:02 16:56 20:27 Hgb (13.0-17.5) gm/dL Neutrophils # (1.3-7.7) k/uL Lymphocytes # (1.0-4.8) k/uL Carbon Dioxide (22-30) mmol/L BUN (9-20) mg/dL POC Glucose (mg/dL) 104 H 130 H 136 H (75-99) mg/dL AST (17-59) U/L Total Protein (6.3-8.2) g/dL Albumin (3.5-5.0) g/dL 11/21/21 11/21/21 Range/Units 07:17 07:17 Hgb 12.7 L (13.0-17.5) gm/dL Neutrophils # 7.9 H (1.3-7.7) k/uL Lymphocytes # 0.9 L (1.0-4.8) k/uL Carbon Dioxide 32 H (22-30) mmol/L BUN 35 H (9-20) mg/dL POC Glucose (mg/dL) (75-99) mg/dL AST 65 H (17-59) U/L Total Protein 6.0 L (6.3-8.2) g/dL Albumin 2.9 L (3.5-5.0) g/dL Assessment and Plan Plan: Assessment: #1. Acute hypoxic respiratory failure related to acute COVID-19 pneumonia. The patient is currently on 15 L in addition to 100% nonrebreather facemask. Unable to wean off the facemask because of desaturations. He remains on both oxygen source. LDH level is on the rise. CRP level is low. D-dimer is on the rise. Doppler of the lower extremity showed no evidence of DVT. Clinically, the patient's breathing is nonlabored. He feels that he is doing well and he denies having any interval worsening of shortness of breath. Nevertheless, his vaccination has remained unchanged and rather stable. #2. Acute COVID 19 with pneumonia #3. Hypertension #4. Obesity with BMI of 38.7 kg/m #5. Elevated d-dimer, with no evidence of DVT on lower extremity Dopplers. CT angiogram was negative for pulmonary embolism Plan: Continue current medical treatment Patient is on Baricitinib Continue current dose Lovenox, lower extremity Dopplers were repeated again showing no DVT Continue COVID-19 multivitamins, Patient continues to require high flow oxygen with 15 L and nonrebreather mask Does not appear to be in any acute distress Continue to follow d-dimer, inflammatory markers Continue safety precautions I performed a history & physical examination of the patient and discussed their management with my nurse practitioner, Palmira Mcclelland. I reviewed the nurse practitioner's note and agree with the documented findings and plan of care. Lung sounds are positive for dim breath sounds throughout the lung ford. The findings and the impression was discussed with the patient. I attest to the documentation by the nurse practitioner. Time with Patient: Less than 30
--- NOTE | 2021-11-21 12:29 | P.PN ---
Subjective Progress Note Date: 11/21/21 11/19/2021 Patient evaluated today sitting up in the bed. He denies any chest pain, does complain of a cough and some shortness of breath at rest. He is satting 90% on a 15L HF cannula, he is trialing a wean off the rebreather mask today. Blood pressure 140/65, heart rate 61, afebrile. Labs today hgb 12.3, sodium 138, potassium 4.5, CO2 33, BUN 28, creatinine 0.95, AST 67, ALT 44, blood sugar in the 140's. Patient is being followed closely by ID and pulmonary services. He is on oral dexamethasone, baricitinib, zinc, vitamins, lovenox. Patient has been having moments of confusion at night, which seem to be improving. 11/20/2021 Patient sitting up in the chair today. He was talking on the phone while only on the 15L HF NC and desatted into the 70's. He will continue on the HF cannula and the NRB due to this. Overall though no acute events overnight and patient has no complaints of chest pain. He has a mild congested productive cough, and shortness of breath mild at rest. Being followed closely by pulmonary services. Vitals today; afebrile, heart rate 75, blood pressure 175/85, oxygenation 92- 93%. Labs reviewed today show a hemoglobin of 12.6, d-dimer 20.86, AST 72, ALT 50, LDH 1975, CRP 1.9. Continues on decadron, baricitinib, zinc, vitamins, lovenox. Pt is alert x3 at the time of my assessment. 11/21/2021 Patient evaluated today sitting up in the bed with a health and safety coordinator at the bed side as he does not do well keeping the oxygen in his nose. Patient currently denies any shortness of breath at rest, reports mild intermittent cough. He denies any abdominal pain, nausea vomiting or diarrhea. When asked questions, patient appears irritated. Vital signs include a temp of 97.4, heart rate 76 sinus rhythm, blood pressure 155/78 he is 90% oxygenation on a 15 L high flow cannula as well as a 100% nonrebreather. Labs today reveal a hemoglobin of 12.7, white count 9.2, sodium 141, potassium 4.5, chloride 106, CO2 32, BUN 35, creatinine 0.94, AST 65, ALT 49, sugars are in the 130s. Venous Doppler negative for bilateral DVT. He is followed closely by pulmonary and ID services, prognosis is guarded for this patient. He continues on Decadron, Lovenox, baricitinib, zinc, vitamins. ROS Constitutional: Denied any fatigue denied any fever. Cardio vascular: denied any chest pain, palpitations Gastrointestinal denied any nausea vomiting Pulmonary: Reports cough, reports shortness of breath Neurologic denied any new focal deficits All inpatient medications were reviewed and appropriate changes in these medications as dictated in the interval history and assessment and plan. PHYSICAL EXAMINATION: GENERAL: The patient is alert and oriented x3, not in any acute distress. Well developed, well nourished. HEENT: Pupils are round and equally reacting to light. EOMI. No scleral icterus. No conjunctival pallor. Normocephalic, atraumatic. No pharyngeal erythema. No thyromegaly. CARDIOVASCULAR: S1 and S2 present. No murmurs, rubs, or gallops. PULMONARY: Coarse scattered rhonchi, bilateral ABDOMEN: Soft, nontender, nondistended, normoactive bowel sounds. No palpable or ganomegaly. Obese. MUSCULOSKELETAL: No joint swelling or deformity. EXTREMITIES: No cyanosis, clubbing, mild pedal edema. NEUROLOGICAL: Gross neurological examination did not reveal any focal deficits. SKIN: No rashes. Assessment and plan Assessment Acute hypoxic respiratory failure secondary to Covid 19 on 15L HF nasal cannula and 100% nonrebreather mask. Acute COVID 19 infection with pneumonia Elevated DD; no evidence for PE, dopplers negative for DVT Hypertension Obesity Hyperglycemia secondary to steroid use GI Prophylaxiss DVT Prophylaxis: Lovenox Plan Continue decadron, baricitinib, zinc, vitamins Continue bronchodilators Continue accuchecks and insulin coverage Repeat labs/inflammatory markers Continue all other supportive care Prognosis remains guarded umbrella repairer at bedside Objective - Vital Signs Vital signs: Vital Signs Temp 97.4 F L 11/21/21 11:53 Pulse 76 11/21/21 11:53 Resp 18 11/21/21 11:53 BP 155/78 11/21/21 11:53 Pulse Ox 90 L 11/21/21 11:53 Intake & Output 11/20/21 11/21/21 11/21/21 18:59 06:59 18:59 Intake Total 118 485 240 Output Total 450 Balance -332 485 240 Intake: Oral 118 485 240 Output: Urine 450 Other: Voiding Method Urinal Urinal Urinal # Voids 1 1 - Labs CBC & Chem 7: 11/21/21 07:17 11/21/21 07:17 Labs: Abnormal Lab Results - Last 24 Hours (Table) 11/20/21 11/20/21 11/21/21 Range/Units 16:56 20:27 07:17 Hgb 12.7 L (13.0-17.5) gm/dL Neutrophils # 7.9 H (1.3-7.7) k/uL Lymphocytes # 0.9 L (1.0-4.8) k/uL Carbon Dioxide (22-30) mmol/L BUN (9-20) mg/dL POC Glucose (mg/dL) 130 H 136 H (75-99) mg/dL AST (17-59) U/L Total Protein (6.3-8.2) g/dL Albumin (3.5-5.0) g/dL 11/21/21 11/21/21 Range/Units 07:17 11:39 Hgb (13.0-17.5) gm/dL Neutrophils # (1.3-7.7) k/uL Lymphocytes # (1.0-4.8) k/uL Carbon Dioxide 32 H (22-30) mmol/L BUN 35 H (9-20) mg/dL POC Glucose (mg/dL) 144 H (75-99) mg/dL AST 65 H (17-59) U/L Total Protein 6.0 L (6.3-8.2) g/dL Albumin 2.9 L (3.5-5.0) g/dL
[2021-11-21 16:53] LABS: Glucose,Whole Blood 171 mg/dL (75-99)
[2021-11-21] MEDS: BARICITINIB 2 MG TABLET PO SCH (17:17)
[2021-11-21 21:06] LABS: Glucose,Whole Blood 124 mg/dL (75-99)
--- NOTE | 2021-11-21 23:09 | PN ---
PROGRESS NOTE DATE OF SERVICE: 11/21/2021 REASON FOR FOLLOWUP: COVID-19 pneumonia. INTERVAL HISTORY: The patient is afebrile. The patient is breathing comfortably. Still requiring 15 L non-rebreather. The patient denies having any chest pain. No worsening cough or sputum production. No abdominal pain or diarrhea. PHYSICAL EXAMINATION: Blood pressure 167/81, pulse of 68, temperature 98. He is 94% on 15 L high-flow oxygen. General description is an elderly male up in the chair in no distress. Respiratory system: Unlabored breathing, decreased intensity of breath sounds. No wheeze. Heart S1, S2. Regular rate and rhythm. Abdomen soft, no tenderness. LABS: Hemoglobin is 12.7, white count 9.2, creatinine 0.94. DIAGNOSTIC IMPRESSION AND PLAN: Patient with acute COVID-19 pneumonia with acute respiratory failure in this patient currently covered with baricitinib, dexamethasone, Lovenox, zinc and ascorbic acid; to continue along with respiratory support. Monitor his clinical course closely. Prognosis remains guarded. MMODL / IJN: [id number] /
[2021-11-22 06:10] LABS: Glucose,Whole Blood 116 mg/dL (75-99)
[2021-11-22] MEDS: INSULIN ASPART (NovoLOG) 100 UNIT/ML VIAL SQ SCH ×4 (06:22→22:21)
[2021-11-22 08:00] LABS: Basophils % (A) 0 %; Eosinophils % (A) 0 %; HCT 37.9 % (39.0-53.0); HGB 12.3 gm/dL (13.0-17.5); Lymphocytes # (A) 0.7 k/uL (1.0-4.8); Lymphocytes % (A) 5 %; MCH 30.6 pg (25.0-35.0); MCHC 32.5 g/dL (31.0-37.0); MCV 94.1 fL (80.0-100.0); Mean Platelet Volume 7.3; Monocytes # (A) 0.3 k/uL (0-1.0); Monocytes % (A) 2 %; Neutrophils # (A) 12.2 k/uL (1.3-7.7); Neutrophils % (A) 92 %; Platelet Count 223 k/uL (150-450); RBC 4.03 m/uL (4.30-5.90); RDW 13.6 % (11.5-15.5); WBC 13.3 k/uL (3.8-10.6)
[2021-11-22 08:27] LABS: ALT 39 U/L (4-49); AST 53 U/L (17-59); African American GFR (CKD) >90 (>60 ml/min/1.73 sqM); Albumin 2.8 g/dL (3.5-5.0); Alkaline Phosphatase 50 U/L (38-126); Anion Gap 4 mmol/L; Blood Urea Nitrogen 37 mg/dL (9-20); Calcium 8.8 mg/dL (8.4-10.2); Carbon Dioxide 30 mmol/L (22-30); Chloride 107 mmol/L (98-107); Glucose 97 mg/dL (74-99); Non-African American GFR(CKD) 81 (>60 ml/min/1.73 sqM); Potassium 4.3 mmol/L (3.5-5.1); Sodium 141 mmol/L (137-145); Total Bilirubin 0.8 mg/dL (0.2-1.3); Total Protein 5.8 g/dL (6.3-8.2)
[2021-11-22] MEDS: dexAMETHasone 2 MG TAB PO SCH (08:57)
[2021-11-22] MEDS: lisinopriL 5 MG TAB PO SCH (08:57)
[2021-11-22] MEDS: ENOXAPARIN 40 MG/0.4 ML SYRINGE SQ SCH (08:57)
[2021-11-22] MEDS: ZINC SULFATE 220 MG CAP PO SCH (08:57)
[2021-11-22] MEDS: amLODIPine 10 MG TAB PO SCH (08:57)
[2021-11-22] MEDS: CHOLECALCIFEROL 25 MCG (1000 IU) TABLET PO SCH (08:57)
[2021-11-22] MEDS: ASCORBIC ACID 500 MG TAB PO SCH (08:57)
[2021-11-22] MEDS ORDERED: FUROSEMIDE 10 MG/ML 4 ML VIAL IV STA (09:26)
[2021-11-22] MEDS: ALBUTEROL HFA INHALER INHALATION SCH ×4 (09:29→21:07)
[2021-11-22] MEDS: FLUTICASONE 220 MCG INHALER INHALATION SCH ×2 (09:29→21:08)
--- NOTE | 2021-11-22 09:33 | P.PN ---
Subjective 11/19/2021 Patient evaluated today sitting up in the bed. He denies any chest pain, does complain of a cough and some shortness of breath at rest. He is satting 90% on a 15L HF cannula, he is trialing a wean off the rebreather mask today. Blood pre ssure 140/65, heart rate 61, afebrile. Labs today hgb 12.3, sodium 138, potassium 4.5, CO2 33, BUN 28, creatinine 0.95, AST 67, ALT 44, blood sugar in the 140's. Patient is being followed closely by ID and pulmonary services. He is on oral dexamethasone, baricitinib, zinc, vitamins, lovenox. Patient has been having moments of confusion at night, which seem to be improving. 11/20/2021 Patient sitting up in the chair today. He was talking on the phone while only on the 15L HF NC and desatted into the 70's. He will continue on the HF cannula and the NRB due to this. Overall though no acute events overnight and patient has no complaints of chest pain. He has a mild congested productive cough, and shortness of breath mild at rest. Being followed closely by pulmonary services. Vitals today; afebrile, heart rate 75, blood pressure 175/85, oxygenation 92- 93%. Labs reviewed today show a hemoglobin of 12.6, d-dimer 20.86, AST 72, ALT 50, LDH 1975, CRP 1.9. Continues on decadron, baricitinib, zinc, vitamins, lovenox. Pt is alert x3 at the time of my assessment. 11/21/2021 Patient evaluated today sitting up in the bed with a product safety engineer at the bedside as he does not do well keeping the oxygen in his nose. Patient currently denies any shortness of breath at rest, reports mild intermittent cough. He denies any abdominal pain, nausea vomiting or diarrhea. When asked questions, patient appears irritated. Vital signs include a temp of 97.4, heart rate 76 sinus rhythm, blood pressure 155/78 he is 90% oxygenation on a 15 L high flow cannula as well as a 100% nonrebreather. Labs today reveal a hemoglobin of 12.7, white count 9.2, sodium 141, potassium 4.5, chloride 106, CO2 32, BUN 35, creatinine 0.94, AST 65, ALT 49, sugars are in the 130s. Venous Doppler negative for bilateral DVT. He is followed closely by pulmonary and ID services, prognosis is guarded for this patient. He continues on Decadron, Lovenox, baricitinib, zinc, vitamins. 11/22/2021 Patient has mild worsening leukocytosis Will repeat BC tomorrow patient is confused and continues to pull his oxygen off and because of the patient is a sitter at this time. Patient remains on nonrebreather. ROS Constitutional: Denied any fatigue denied any fever. Cardio vascular: denied any chest pain, palpitations Gastrointestinal denied any nausea vomiting Pulmonary: Reports cough, reports shortness of breath Neurologic denied any new focal deficits All inpatient medications were reviewed and appropriate changes in these medications as dictated in the interval history and assessment and plan. PHYSICAL EXAMINATION: GENERAL: The patient is alert and oriented x3, not in any acute distress. Well developed, well nourished. HEENT: Pupils are round and equally reacting to light. EOMI. No scleral icterus. No conjunctival pallor. Normocephalic, atraumatic. No pharyngeal erythema. No thyromegaly. CARDIOVASCULAR: S1 and S2 present. No murmurs, rubs, or gallops. PULMONARY: Coarse scattered rhonchi, bilateral ABDOMEN: Soft, nontender, nondistended, normoactive bowel sounds. No palpable organomegaly. Obese. MUSCULOSKELETAL: No joint swelling or deformity. EXTREMITIES: No cyanosis, clubbing, mild pedal edema. NEUROLOGICAL: Gross neurological examination did not reveal any focal deficits. SKIN: No rashes. Assessment and plan Assessment Acute hypoxic respiratory failure secondary to Covid 19 on 15L HF nasal cannula and 100% nonrebreather mask. Acute COVID 19 infection with pneumonia Elevated DD; no evidence for PE, dopplers negative for DVT Hypertension Obesity Hyperglycemia secondary to steroid use GI Prophylaxiss DVT Prophylaxis: Lovenox Plan Continue decadron, baricitinib, zinc, vitamins Continue bronchodilators Continue accuchecks and insulin coverage Repeat labs/inflammatory markers Continue all other supportive care Prognosis remains guarded performance analyst at bedside Objective - Vital Signs Vital signs: Vital Signs Temp 97.8 F 11/22/21 08:58 Pulse 79 11/22/21 08:58 Resp 20 11/22/21 08:58 BP 189/98 11/22/21 08:58 Pulse Ox 90 L 11/22/21 08:58 Intake & Output 11/21/21 11/22/21 11/22/21 18:59 06:59 18:59 Intake Total 358 10 Output Total 650 Balance 358 -640 Intake: IV 10 Invasive Line 4 10 Oral 358 Output: Urine 650 Other: Voiding Method Urinal Urinal # Voids 1 # Bowel Movements 1 - Labs CBC & Chem 7: 11/22/21 07:24 11/22/21 07:24 Labs: Abnormal Lab Results - Last 24 Hours (Table) 11/21/21 11/21/21 11/21/21 Range/Units 11:39 16:52 21:04 WBC (3.8-10.6) k/uL RBC (4.30-5.90) m/uL Hgb (13.0-17.5) gm/dL Hct (39.0-53.0) % Neutrophils # (1.3-7.7) k/uL Lymphocytes # (1.0-4.8) k/uL BUN (9-20) mg/dL POC Glucose (mg/dL) 144 H 171 H 124 H (75-99) mg/dL Total Protein (6.3-8.2) g/dL Albumin (3.5-5.0) g/dL 11/22/21 11/22/21 11/22/21 Range/Units 06:04 07:24 07:24 WBC 13.3 H (3.8-10.6) k/uL RBC 4.03 L (4.30-5.90) m/uL Hgb 12.3 L (13.0-17.5) gm/dL Hct 37.9 L (39.0-53.0) % Neutrophils # 12.2 H (1.3-7.7) k/uL Lymphocytes # 0.7 L (1.0-4.8) k/uL BUN 37 H (9-20) mg/dL POC Glucose (mg/dL) 116 H (75-99) mg/dL Total Protein 5.8 L (6.3-8.2) g/dL Albumin 2.8 L (3.5-5.0) g/dL
[2021-11-22 11:45] LABS: Glucose,Whole Blood 152 mg/dL (75-99)
--- NOTE | 2021-11-22 12:25 | P.PN ---
Subjective Progress Note Date: 11/22/21 Principal diagnosis: COVID-19 pneumonia The patient is seen today 11/22/2021 in follow-up on the selective care unit. He is currently sitting up in bed. He is restless. Attempting to climb out of bed. Apparently he had sustained one or 2 falls this admission. There is diogenes fowler a food safety specialist at the bedside. He needs constant reminding to stay in bed and use his urinal or weight for assistance to get up and help them to the restroom. He is currently maintaining O2 saturations in the low 90s with 15 L high flow nasal cannula +800% nonrebreather mask. He is febrile today with a temperature 101.1. Weight count 13.3. Hemoglobin 12.3. Lymphocytes 0.7. Sodium 141 potassium 4.3. Creatinine 0.93. Glucose 152. AST 53. ALT 39. He is continued on Baricitinib, Decadron, Lovenox, vitamin supplements. Venous Dopplers of the lower extremities were negative for DVT. Previous computed tomography scan of the brain revealed no acute intracranial process. Objective - Vital Signs Vital signs: Vital Signs Temp 101.1 F H 11/22/21 12:11 Pulse 71 11/22/21 12:11 Resp 18 11/22/21 12:11 BP 169/71 11/22/21 12:11 Pulse Ox 92 L 11/22/21 12:11 Intake & Output 11/21/21 11/22/21 11/22/21 18:59 06:59 18:59 Intake Total 358 10 Output Total 650 Balance 358 -640 Intake: IV 10 Invasive Line 4 10 Oral 358 Output: Urine 650 Other: Voiding Method Urinal Urinal Urinal # Voids 1 # Bowel Movements 1 - Exam GENERAL EXAM: Alert, restless, uncooperative 76-year-old gentleman, on 15 L high flow nasal cannula +100% nonrebreather mask, comfortable in no apparent distress. HEAD: Normocephalic. EYES: Normal reaction of pupils, equal size. NOSE: Clear with pink turbinates. THROAT: No erythema or exudates. NECK: No masses, no JVD. CHEST: No chest wall deformity. LUNGS: Equal air entry with coarse crackles in the bilateral bases. CVS: S1 and S2 normal with no audible murmur, regular rhythm. ABDOMEN: No hepatosplenomegaly, normal bowel sounds, no guarding or rigidity. SPINE: No scoliosis or deformity SKIN: No rashes CENTRAL NERVOUS SYSTEM: No focal deficits, tone is normal in all 4 extremities. EXTREMITIES: There is no peripheral edema. No clubbing, no cyanosis. Peripheral pulses are intact. - Labs CBC & Chem 7: 11/22/21 07:24 11/22/21 07:24 Labs: Abnormal Lab Results - Last 24 Hours (Table) 11/21/21 11/21/21 11/22/21 Range/Units 16:52 21:04 06:04 WBC (3.8-10.6) k/uL RBC (4.30-5.90) m/uL Hgb (13.0-17.5) gm/dL Hct (39.0-53.0) % Neutrophils # (1.3-7.7) k/uL Lymphocytes # (1.0-4.8) k/uL BUN (9-20) mg/dL POC Glucose (mg/dL) 171 H 124 H 116 H (75-99) mg/dL Total Protein (6.3-8.2) g/dL Albumin (3.5-5.0) g/dL 11/22/21 11/22/21 11/22/21 Range/Units 07:24 07:24 11:41 WBC 13.3 H (3.8-10.6) k/uL RBC 4.03 L (4.30-5.90) m/uL Hgb 12.3 L (13.0-17.5) gm/dL Hct 37.9 L (39.0-53.0) % Neutrophils # 12.2 H (1.3-7.7) k/uL Lymphocytes # 0.7 L (1.0-4.8) k/uL BUN 37 H (9-20) mg/dL POC Glucose (mg/dL) 152 H (75-99) mg/dL Total Protein 5.8 L (6.3-8.2) g/dL Albumin 2.8 L (3.5-5.0) g/dL Assessment and Plan Assessment: 1 Acute hypoxic respiratory failure related to acute COVID-19 pneumonia. The patient is currently on 15 L in addition to 100% nonrebreather facemask. Unable to wean off the facemask because of desaturations. He remains on both oxygen source. Doppler of the lower extremity showed no evidence of DVT. Clinically, the patient's breathing is nonlabored. He feels that he is doing well and he denies having any interval worsening of shortness of breath. Nevertheless, his oxygenation has remained unchanged and rather stable. 2 Acute COVID 19 with pneumonia 3 Hypertension 4 Obesity with BMI of 38.7 kg/m 5 Elevated d-dimer, with no evidence of DVT on lower extremity Dopplers. CT angiogram was negative for pulmonary embolism Plan: The patient was seen and evaluated Continues on 15 L high flow plus a nonrebreather mask Somewhat restless and agitated, food safety specialist at the bedside We'll add Haldol 1 mg IV every 8 hours when necessary Given Lasix 40 mg IVP 1 Check a pro-calcitonin due to fever today Continue Baricitinib, Lovenox, Decadron and vitamin supplements Prognosis remains guarded We'll continue to follow make further recommendations based on his clinical status I, the cosigning physician, performed a history & physical examination of the patient. Lungs sounds with bilateral crackles in the posterior bases. Maintaining good O2 saturations in the 90s on 15 L high flow nasal cannula plus a nonrebreather mask. I discussed the assessment and plan of care with my nurse practitioner, Keisha Reed. I attest to the above note as dictated by her.
[2021-11-22 16:51] LABS: Glucose,Whole Blood 160 mg/dL (75-99)
[2021-11-22] MEDS: BARICITINIB 2 MG TABLET PO SCH (17:09)
[2021-11-22 19:54] LABS: Glucose,Whole Blood 169 mg/dL (75-99)
--- NOTE | 2021-11-22 22:55 | PN ---
PROGRESS NOTE DATE OF SERVICE: 11/22/2021 REASON FOR FOLLOWUP: COVID-19 pneumonia. INTERVAL HISTORY: The patient is afebrile. The patient is breathing comfortably. Still requiring a non- rebreather to maintain his saturations. The patient denies having any chest pain. No worsening cough or sputum production. No abdominal pain or diarrhea. PHYSICAL EXAMINATION: Blood pressure 150/86, pulse of 111, temperature of 98. He has 96% oxygen saturation on a non-rebreather. General description is an elderly male up in the bed in no distress. Respiratory system: Unlabored breathing. Coarse breath sounds bilaterally. No wheeze. Heart S1, S2. Regular rate and rhythm. Abdomen soft, no tenderness. LABS: Hemoglobin is 12.3, white count 13.3, creatinine 0.93. DIAGNOSTIC IMPRESSION AND PLAN: Patient with acute respiratory failure secondary to severe COVID-19 pneumonia. Patient to continue with the baricitinib, dexamethasone, Lovenox, zinc and ascorbic acid along with respiratory support. Monitor his clinical course closely. MMODL / IJN: [id number] /
[2021-11-22] MEDS: HALOPERIDOL LACTATE 5 MG/ML 1 ML VIAL IVP PRN (23:11)
[2021-11-23 06:50] LABS: Basophils % (A) 0 %; Eosinophils % (A) 0 %; HCT 38.6 % (39.0-53.0); HGB 12.4 gm/dL (13.0-17.5); Lymphocytes # (A) 0.8 k/uL (1.0-4.8); Lymphocytes % (A) 8 %; MCV 93.5 fL (80.0-100.0); Mean Platelet Volume 7.7; Monocytes # (A) 0.2 k/uL (0-1.0); Monocytes % (A) 2 %; Neutrophils # (A) 8.2 k/uL (1.3-7.7); Neutrophils % (A) 88 %; Platelet Count 208 k/uL (150-450); RBC 4.12 m/uL (4.30-5.90); RDW 13.3 % (11.5-15.5); WBC 9.3 k/uL (3.8-10.6)
[2021-11-23 06:57] LABS: Glucose,Whole Blood 143 mg/dL (75-99)
[2021-11-23] MEDS: INSULIN ASPART (NovoLOG) 100 UNIT/ML VIAL SQ SCH ×4 (07:03→20:38)
[2021-11-23 07:06] LABS: Albumin 2.7 g/dL (3.5-5.0); Calcium 8.6 mg/dL (8.4-10.2); Potassium 4.3 mmol/L (3.5-5.1); Total Protein 5.7 g/dL (6.3-8.2)
[2021-11-23] MEDS: ASCORBIC ACID 500 MG TAB PO SCH ×2 (08:37→08:45)
[2021-11-23] MEDS: dexAMETHasone 2 MG TAB PO SCH ×2 (08:37→08:45)
[2021-11-23] MEDS: CHOLECALCIFEROL 25 MCG (1000 IU) TABLET PO SCH ×2 (08:37→08:45)
[2021-11-23] MEDS: ZINC SULFATE 220 MG CAP PO SCH (08:37)
[2021-11-23] MEDS: amLODIPine 10 MG TAB PO SCH ×2 (08:38→08:45)
[2021-11-23] MEDS: lisinopriL 10 MG TAB PO SCH ×2 (08:38→08:45)
[2021-11-23] MEDS: ENOXAPARIN 40 MG/0.4 ML SYRINGE SQ SCH (08:38)
[2021-11-23] MEDS: FLUTICASONE 220 MCG INHALER INHALATION SCH ×2 (09:17→21:14)
[2021-11-23] MEDS: ALBUTEROL HFA INHALER INHALATION SCH ×4 (09:17→21:14)
--- NOTE | 2021-11-23 11:58 | P.PN ---
Subjective 11/19/2021 Patient evaluated today sitting up in the bed. He denies any chest pain, does complain of a cough and some shortness of breath at rest. He is satting 90% on a 15L HF cannula, he is trialing a wean off the rebreather mask today. Blood pre ssure 140/65, heart rate 61, afebrile. Labs today hgb 12.3, sodium 138, potassium 4.5, CO2 33, BUN 28, creatinine 0.95, AST 67, ALT 44, blood sugar in the 140's. Patient is being followed closely by ID and pulmonary services. He is on oral dexamethasone, baricitinib, zinc, vitamins, lovenox. Patient has been having moments of confusion at night, which seem to be improving. 11/20/2021 Patient sitting up in the chair today. He was talking on the phone while only on the 15L HF NC and desatted into the 70's. He will continue on the HF cannula and the NRB due to this. Overall though no acute events overnight and patient has no complaints of chest pain. He has a mild congested productive cough, and shortness of breath mild at rest. Being followed closely by pulmonary services. Vitals today; afebrile, heart rate 75, blood pressure 175/85, oxygenation 92- 93%. Labs reviewed today show a hemoglobin of 12.6, d-dimer 20.86, AST 72, ALT 50, LDH 1975, CRP 1.9. Continues on decadron, baricitinib, zinc, vitamins, lovenox. Pt is alert x3 at the time of my assessment. 11/21/2021 Patient evaluated today sitting up in the bed with a health and safety technician at the bedside as he does not do well keeping the oxygen in his nose. Patient currently denies any shortness of breath at rest, reports mild intermittent cough. He denies any abdominal pain, nausea vomiting or diarrhea. When asked questions, patient appears irritated. Vital signs include a temp of 97.4, heart rate 76 sinus rhythm, blood pressure 155/78 he is 90% oxygenation on a 15 L high flow cannula as well as a 100% nonrebreather. Labs today reveal a hemoglobin of 12.7, white count 9.2, sodium 141, potassium 4.5, chloride 106, CO2 32, BUN 35, creatinine 0.94, AST 65, ALT 49, sugars are in the 130s. Venous Doppler negative for bilateral DVT. He is followed closely by pulmonary and ID services, prognosis is guarded for this patient. He continues on Decadron, Lovenox, baricitinib, zinc, vitamins. 11/22/2021 Patient has mild worsening leukocytosis Will repeat BC tomorrow patient is confused and continues to pull his oxygen off and because of the patient is a sitter at this time. Patient remains on nonrebreather. 11/23/21 Patient had fever yesterday morning we'll obtain blood cultures. Patient does have a Ramirez catheter patient is occasionally coughing but not bringing up anything. Infectious disease is following the patient as well. For now will not start any antibiotics unless infectious disease believes he will need any antibiotics. Patient also requirements remains the same. ROS Constitutional: Denied any fatigue denied any fever. Cardio vascular: denied any chest pain, palpitations Gastrointestinal denied any nausea vomiting Pulmonary: Reports cough, reports shortness of breath Neurologic denied any new focal deficits All inpatient medications were reviewed and appropriate changes in these medications as dictated in the interval history and assessment and plan. PHYSICAL EXAMINATION: GENERAL: The patient is alert and oriented x3, not in any acute distress. Well developed, well nourished. HEENT: Pupils are round and equally reacting to light. EOMI. No scleral icterus. No conjunctival pallor. Normocephalic, atraumatic. No pharyngeal erythema. No thyromegaly. CARDIOVASCULAR: S1 and S2 present. No murmurs, rubs, or gallops. PULMONARY: Coarse scattered rhonchi, bilateral ABDOMEN: Soft, nontender, nondistended, normoactive bowel sounds. No palpable organomegaly. Obese. MUSCULOSKELETAL: No joint swelling or deformity. EXTREMITIES: No cyanosis, clubbing, mild pedal edema. NEUROLOGICAL: Gross neurological examination did not reveal any focal deficits. SKIN: No rashes. Assessment and plan Assessment Acute hypoxic respiratory failure secondary to Covid 19 on 15L HF nasal cannula and 100% nonrebreather mask. COVID 19 infection with pneumonia -Recurrence of fevers: Workup as mentioned in the interval history. Elevated DD; no evidence for PE, dopplers negative for DVT Hypertension Obesity Hyperglycemia secondary to steroid use GI Prophylaxiss DVT Prophylaxis: Lovenox Plan Continue decadron, baricitinib, zinc, vitamins Continue bronchodilators Continue accuchecks and insulin coverage Repeat labs/inflammatory markers Continue all other supportive care Prognosis remains guarded sap sd analyst at bedside Objective - Vital Signs Vital signs: Vital Signs Temp 100.9 F H 11/23/21 08:35 Pulse 70 11/23/21 08:35 Resp 24 11/23/21 08:35 BP 153/73 11/23/21 08:35 Pulse Ox 96 11/23/21 08:35 Intake & Output 11/22/21 11/23/21 11/23/21 18:59 06:59 18:59 Intake Total 480 20 0 Output Total 300 800 Balance 180 -780 0 Intake: IV 20 Invasive Line 4 20 Oral 480 0 Output: Urine 300 800 Other: Voiding Method Urinal Indwelling Catheter Indwelling Catheter # Bowel Movements 2 0 - Labs CBC & Chem 7: 11/23/21 05:46 11/23/21 05:46 Labs: Abnormal Lab Results - Last 24 Hours (Table) 11/22/21 11/22/21 11/22/21 Range/Units 07:24 16:50 19:53 RBC (4.30-5.90) m/uL Hgb (13.0-17.5) gm/dL Hct (39.0-53.0) % Neutrophils # (1.3-7.7) k/uL Lymphocytes # (1.0-4.8) k/uL Carbon Dioxide (22-30) mmol/L BUN (9-20) mg/dL Glucose (74-99) mg/dL POC Glucose (mg/dL) 160 H 169 H (75-99) mg/dL Total Protein (6.3-8.2) g/dL Albumin (3.5-5.0) g/dL Procalcitonin 0.12 H (0.02-0.09) ng/mL 11/23/21 11/23/21 11/23/21 Range/Units 05:46 05:46 06:56 RBC 4.12 L (4.30-5.90) m/uL Hgb 12.4 L (13.0-17.5) gm/dL Hct 38.6 L (39.0-53.0) % Neutrophils # 8.2 H (1.3-7.7) k/uL Lymphocytes # 0.8 L (1.0-4.8) k/uL Carbon Dioxide 33 H (22-30) mmol/L BUN 43 H (9-20) mg/dL Glucose 112 H (74-99) mg/dL POC Glucose (mg/dL) 143 H (75-99) mg/dL Total Protein 5.7 L (6.3-8.2) g/dL Albumin 2.7 L (3.5-5.0) g/dL Procalcitonin (0.02-0.09) ng/mL
[2021-11-23 12:28] LABS: Glucose,Whole Blood 138 mg/dL (75-99)
--- NOTE | 2021-11-23 13:05 | P.PN ---
Subjective Progress Note Date: 11/23/21 Principal diagnosis: COVID-19 pneumonia The patient is seen today 11/22/2021 in follow-up on the selective care unit. He is currently sitting up in bed. He is restless. Attempting to climb out of bed. Apparently he had sustained one or 2 falls this admission. There is diogenes fowler a corporate safety manager at the bedside. He needs constant reminding to stay in bed and use his urinal or weight for assistance to get up and help them to the restroom. He is currently maintaining O2 saturations in the low 90s with 15 L high flow nasal cannula +800% nonrebreather mask. He is febrile today with a temperature 101.1. Weight count 13.3. Hemoglobin 12.3. Lymphocytes 0.7. Sodium 141 potassium 4.3. Creatinine 0.93. Glucose 152. AST 53. ALT 39. He is continued on Baricitinib, Decadron, Lovenox, vitamin supplements. Venous Dopplers of the lower extremities were negative for DVT. Previous computed tomography scan of the brain revealed no acute intracranial process. The patient is seen today 11/23/2021 in follow-up on the selective care unit. He is currently sitting up in bed. He has a corporate safety manager at the bedside. He continues to take off his oxygen and desaturates quickly into the 70s. He is on 15 L high flow nasal cannula +100% nonrebreather mask with O2 saturations in the low 90s. He did have a temp 100.9 earlier this morning. Blood pressure stable. white count 9.3. Hemoglobin 12.4. Lymphocytes 0.8. Sodium 137. Potassium 4.3. Creatinine 1.00. Chest x-ray, Procalcitonin,inflammatory markers pending. appendectomy is continued on Baricitinib, Lovenox, Decadron, vitamin supplements Objective - Vital Signs Vital signs: Vital Signs Temp 98.8 F 11/23/21 12:44 Pulse 80 11/23/21 12:44 Resp 20 11/23/21 12:44 BP 147/69 11/23/21 12:44 Pulse Ox 93 L 11/23/21 12:44 Intake & Output 11/22/21 11/23/21 11/23/21 18:59 06:59 18:59 Intake Total 480 20 0 Output Total 300 800 Balance 180 -780 0 Intake: IV 20 Invasive Line 4 20 Oral 480 0 Output: Urine 300 800 Other: Voiding Method Urinal Indwelling Catheter Indwelling Catheter # Bowel Movements 2 0 - Exam GENERAL EXAM: Alert, restless, uncooperative 76-year-old gentleman, on 15 L high flow nasal cannula +100% nonrebreather mask, comfortable in no apparent distress. HEAD: Normocephalic. EYES: Normal reaction of pupils, equal size. NOSE: Clear with pink turbinates. THROAT: No erythema or exudates. NECK: No masses, no JVD. CHEST: No chest wall deformity. LUNGS: Equal air entry with coarse crackles in the bilateral bases. CVS: S1 and S2 normal with no audible murmur, regular rhythm. ABDOMEN: No hepatosplenomegaly, normal bowel sounds, no guarding or rigidity. SPINE: No scoliosis or deformity SKIN: No rashes CENTRAL NERVOUS SYSTEM: No focal deficits, tone is normal in all 4 extremities. EXTREMITIES: There is no peripheral edema. No clubbing, no cyanosis. Peripheral pulses are intact. - Labs CBC & Chem 7: 11/23/21 05:46 11/23/21 05:46 Labs: Abnormal Lab Results - Last 24 Hours (Table) 11/22/21 11/22/21 11/22/21 Range/Units 07:24 16:50 19:53 RBC (4.30-5.90) m/uL Hgb (13.0-17.5) gm/dL Hct (39.0-53.0) % Neutrophils # (1.3-7.7) k/uL Lymphocytes # (1.0-4.8) k/uL Carbon Dioxide (22-30) mmol/L BUN (9-20) mg/dL Glucose (74-99) mg/dL POC Glucose (mg/dL) 160 H 169 H (75-99) mg/dL Total Protein (6.3-8.2) g/dL Albumin (3.5-5.0) g/dL Procalcitonin 0.12 H (0.02-0.09) ng/mL 11/23/21 11/23/21 11/23/21 Range/Units 05:46 05:46 06:56 RBC 4.12 L (4.30-5.90) m/uL Hgb 12.4 L (13.0-17.5) gm/dL Hct 38.6 L (39.0-53.0) % Neutrophils # 8.2 H (1.3-7.7) k/uL Lymphocytes # 0.8 L (1.0-4.8) k/uL Carbon Dioxide 33 H (22-30) mmol/L BUN 43 H (9-20) mg/dL Glucose 112 H (74-99) mg/dL POC Glucose (mg/dL) 143 H (75-99) mg/dL Total Protein 5.7 L (6.3-8.2) g/dL Albumin 2.7 L (3.5-5.0) g/dL Procalcitonin (0.02-0.09) ng/mL 11/23/21 Range/Units 12:08 RBC (4.30-5.90) m/uL Hgb (13.0-17.5) gm/dL Hct (39.0-53.0) % Neutrophils # (1.3-7.7) k/uL Lymphocytes # (1.0-4.8) k/uL Carbon Dioxide (22-30) mmol/L BUN (9-20) mg/dL Glucose (74-99) mg/dL POC Glucose (mg/dL) 138 H (75-99) mg/dL Total Protein (6.3-8.2) g/dL Albumin (3.5-5.0) g/dL Procalcitonin (0.02-0.09) ng/mL Assessment and Plan Assessment: 1 Acute hypoxic respiratory failure related to acute COVID-19 pneumonia. The patient is currently on 15 L in addition to 100% nonrebreather facemask. Unable to wean off the facemask because of desaturations. He remains on both oxygen source. Doppler of the lower extremity showed no evidence of DVT. He remains altered at times and pulse off his oxygen. montessori paraprofessional at the bedside. 2 Acute COVID 19 with pneumonia 3 Hypertension 4 Obesity with BMI of 39.1 kg/m 5 Elevated d-dimer, with no evidence of DVT on lower extremity Dopplers. CT angiogram was negative for pulmonary embolism Plan: The patient was seen and evaluated Continues on 15 L high flow plus a nonrebreather mask Somewhat restless and agitated, corporate safety manager at the bedside Check a pro-calcitonin due to fever today Continue Baricitinib, Lovenox, Decadron and vitamin supplements Follow-up chest x-ray and inflammatory markers pending Prognosis remains guarded We'll continue to follow I, the cosigning physician, performed a history & physical examination of the patient. Lungs sounds with bilateral crackles in the posterior bases. Maintaining good O2 saturations in the 90s on 15 L high flow nasal cannula plus a nonrebreather mask. I discussed the assessment and plan of care with my nurse practitioner, Keisha Reed. I attest to the above note as dictated by her.
--- NOTE | 2021-11-23 13:28 | XR ---
EXAMINATION TYPE: XR chest 1V portable DATE OF EXAM: 11/23/2021 CLINICAL HISTORY: Difficulty breathing and covid pneumonia progress study. TECHNIQUE: Single AP portable upright view of the chest is obtained. COMPARISON: Chest x-ray from 6 days earlier. CTA chest November 14, 2021 FINDINGS: Persistent low lung volumes and bilateral multifocal and confluent opacities. Cardiac silh ouette size remains within normal limits. Osseous structures are intact. IMPRESSION: Low lung volumes with bilateral multifocal and confluent opacities consistent with covid- 19 infection redemonstrated. No significant change from most recent x-ray.
[2021-11-23 14:32] LABS: C Reactive Protein 16.1 mg/dL (<1.0)
[2021-11-23 15:31] LABS: Appearance,Urine Cloudy (Clear); Bilirubin,Urine Negative (Negative); Blood,Urine Small (Negative); Color,Urine Yellow; Glucose,Urine (UA) Negative (Negative); Ketones,Urine Negative (Negative); Leukocyte Esterase,Urine Moderate (Negative); Mucus,Urine Moderate /hpf; Nitrite,Urine Negative (Negative); Protein,Urine 1+ (Negative); RBC,Urine 25 /hpf (0-5); Specific Gravity,Urine 1.025 (1.001-1.035); WBC,Urine 26 /hpf (0-5)
--- NOTE | 2021-11-23 15:35 | PN ---
PROGRESS NOTE DATE OF SERVICE: 11/23/2021 REASON FOR FOLLOWUP: COVID-19 pneumonia. INTERVAL HISTORY: The patient this morning the patient is requiring high-flow oxygen, though mentioned breathing comfortably. Denies having any chest pain. No worsening cough or sputum production. No abdominal pain or diarrhea. PHYSICAL EXAMINATION: Blood pressure 147/59 with a pulse of 80, temperature 98.8. He is 93% on 15 L high- flow oxygen. General description is an elderly male up in the bed in no distress. Respiratory system: Unlabored breathing, decreased intensity of breath sounds. No wheeze. Heart S1, S2. Regular rate and rhythm. Abdomen soft, no tenderness. LABS: Hemoglobin is 12.4, white count 9.3, creatinine 1.0. D-dimer is 27.7 . Chest x- ray shows low lung volumes, bilateral multifocal opacities. No significant change. Doppler done on 11/20 was negative for DVT. DIAGNOSTIC IMPRESSION AND PLAN: Patient with acute respiratory failure secondary to COVID-19 pneumonia in this patient now with evidence of new fever. Did have significant elevated D-dimer. May benefit from a repeat CT angiogram to make sure no evidence of any DVT patient is currently covered with baricitinib, dexamethasone, Lovenox, zinc and ascorbic acid. To continue for a new fever. We will recheck his blood culture, UA and procalcitonin and monitor his clinical course closely. MMODL / IJN: [id number] /
[2021-11-23 16:58] LABS: Glucose,Whole Blood 163 mg/dL (75-99)
[2021-11-23] MEDS: BARICITINIB 2 MG TABLET PO SCH (17:19)
[2021-11-23 20:14] LABS: Glucose,Whole Blood 231 mg/dL (75-99)
[2021-11-23] MEDS: ACETAMINOPHEN TAB 325 MG TAB PO PRN (20:38)
[2021-11-24] MEDS: HALOPERIDOL LACTATE 5 MG/ML 1 ML VIAL IVP PRN (00:29)
[2021-11-24] MEDS: ACETAMINOPHEN TAB 325 MG TAB PO PRN (02:14)
[2021-11-24 02:20] LABS: Glucose,Whole Blood 158 mg/dL (75-99)
[2021-11-24] MEDS ORDERED: NALOXONE 0.4 MG/ML 1 ML VIAL IV PRN (02:36)
[2021-11-24] MEDS ORDERED: DEXMEDETOMIDINE/0.9% NACL(PMX) 400 MCG in EMPTY BAG 1 BAG IV SCH (02:45)
[2021-11-24] MEDS ORDERED: propofoL 100 ML IV ONE (05:12)
[2021-11-24] MEDS ORDERED: PROPOFOL 10 MG/ML 20 ML VIAL IV ONE (05:15)
[2021-11-24] MEDS ORDERED: SUCCINYLCHOLINE CHLORIDE 100 MG/5 ML SYR IV ONE (05:15)
[2021-11-24] MEDS ORDERED: PHENYLEPHRINE 10 MG/ML VIAL ONE (05:15)
[2021-11-24 05:16] LABS: Basophils % (A) 0 %; Eosinophils % (A) 0 %; HGB 11.5 gm/dL (13.0-17.5); Lymphocytes # (A) 0.3 k/uL (1.0-4.8); Lymphocytes % (A) 2 %; MCH 30.4 pg (25.0-35.0); MCHC 31.8 g/dL (31.0-37.0); MCV 95.3 fL (80.0-100.0); Mean Platelet Volume 7.7; Monocytes # (A) 0.5 k/uL (0-1.0); Monocytes % (A) 4 %; Neutrophils # (A) 10.7 k/uL (1.3-7.7); Neutrophils % (A) 93 %; Platelet Count 182 k/uL (150-450); RBC 3.78 m/uL (4.30-5.90); RDW 13.4 % (11.5-15.5); WBC 11.6 k/uL (3.8-10.6)
[2021-11-24 05:29] LABS: Albumin 2.5 g/dL (3.5-5.0); Calcium 8.2 mg/dL (8.4-10.2); Potassium 4.7 mmol/L (3.5-5.1); Total Bilirubin 0.9 mg/dL (0.2-1.3); Total Protein 5.4 g/dL (6.3-8.2)
[2021-11-24] MEDS: fentaNYL (PF). 1,000 MCG in SODIUM CHLORIDE 0.9% 80 ML IV SCH ×4 (05:45→20:08)
[2021-11-24] MEDS: CISATRACURIUM 200 MG in SODIUM CHLORIDE 0.9% 180 ML IV SCH ×2 (05:50→18:09)
--- NOTE | 2021-11-24 05:50 | XR ---
EXAMINATION TYPE: XR chest 1V DATE OF EXAM: 11/24/2021 COMPARISON: Yesterday HISTORY: Short of breath TECHNIQUE: FINDINGS: There is endotracheal tube 3.5 cm from the abida. There is large right-sided pneumothorax more than 80%. Heart shifted slightly to the left side. There is almost complete collapse of the righ t lung. The left lung shows some diffuse infiltrate. There is nasogastric tube in the stomach. IMPRESSION: There is a large right-sided pneumothorax with mild tension that appears new compared to yesterday. Medical staff on the floor aware of the pneumothorax. Extensive bilateral pulmonary infilt rates consistent with multifocal pneumonia.
[2021-11-24] MEDS ORDERED: LIDOCAINE 1% INJ 10MG/ML (20 ML MDV) ONE (06:03)
[2021-11-24 06:32] LABS: Glucose,Whole Blood 190 mg/dL (75-99)
[2021-11-24] MEDS: INSULIN ASPART (NovoLOG) 100 UNIT/ML VIAL SQ SCH ×4 (06:32→20:04)
--- NOTE | 2021-11-24 07:04 | XR ---
EXAM: XR Chest, 1 View CLINICAL HISTORY: ITS.REASON XR Reason: Chest tube insertion TECHNIQUE: Frontal view of the chest. COMPARISON: 11/24/2021 at 5:30 AM FINDINGS: Lungs: Extensive bilateral patchy lung opacities, unchanged from prior study. Pleural space: Interval placement of right-sided chest tube with tip terminating the medial right apex. Resolution of right-sided pneumothorax compared to prior study. Heart: Unremarkable. No cardiomegaly. Mediastinum: Nasogastric tube terminates in the body of stomach. Endotracheal tube terminates 3.3 cm above the level of the abida. Bones/joints: Unremarkable. IMPRESSION: 1. Interval placement of right-sided chest tube with tip terminating the medial right apex. Resolution of right-sided pneumothorax compared to prior study. 2. Extensive bilateral patchy lung opacities, unchanged from prior study.
[2021-11-24] MEDS: NOREPINEPHRINE 4 MG in SODIUM CHLORIDE 0.9% 250 ML IV SCH ×2 (07:06→17:23)
[2021-11-24 08:11] LABS: ABG Base Excess 3.7 mmol/L; ABG HCO3 30 mmol/L (21-25); ABG Oxygen Saturation 93.5 % (94-97); ABG PCO2 57 mmHg (35-45); ABG PH 7.33 (7.35-7.45); ABG PO2 70 mmHg (83-108); ABG TCO2 31 mmol/L (19-24); Allen Test Performed? Yes
[2021-11-24] MEDS: FLUTICASONE 220 MCG INHALER INHALATION SCH ×2 (08:15→19:35)
[2021-11-24] MEDS: ALBUTEROL HFA INHALER INHALATION SCH ×5 (08:15→19:35)
[2021-11-24] MEDS: ARTIFICIAL TEARS-HYPROMELLOSE DROPS 15 ML BTL BOTH EYES SCH ×5 (08:53→23:53)
[2021-11-24] MEDS: lisinopriL 10 MG TAB PO SCH (09:35)
[2021-11-24] MEDS: amLODIPine 10 MG TAB PO SCH (09:35)
[2021-11-24] MEDS: CHLORHEXIDINE GLUCONATE 15 ML CUP MUCOUS MEM SCH ×2 (09:37→20:42)
[2021-11-24] MEDS: ZINC SULFATE 220 MG CAP PO SCH (09:37)
[2021-11-24] MEDS: ENOXAPARIN 40 MG/0.4 ML SYRINGE SQ SCH (09:37)
[2021-11-24] MEDS: ASCORBIC ACID 500 MG TAB PO SCH (09:37)
[2021-11-24] MEDS: CHOLECALCIFEROL 25 MCG (1000 IU) TABLET PO SCH (09:37)
[2021-11-24] MEDS: dexAMETHasone 2 MG TAB PO SCH (09:37)
--- NOTE | 2021-11-24 09:55 | P.PN ---
Subjective 11/19/2021 Patient evaluated today sitting up in the bed. He denies any chest pain, does complain of a cough and some shortness of breath at rest. He is satting 90% on a 15L HF cannula, he is trialing a wean off the rebreather mask today. Blood pre ssure 140/65, heart rate 61, afebrile. Labs today hgb 12.3, sodium 138, potassium 4.5, CO2 33, BUN 28, creatinine 0.95, AST 67, ALT 44, blood sugar in the 140's. Patient is being followed closely by ID and pulmonary services. He is on oral dexamethasone, baricitinib, zinc, vitamins, lovenox. Patient has been having moments of confusion at night, which seem to be improving. 11/20/2021 Patient sitting up in the chair today. He was talking on the phone while only on the 15L HF NC and desatted into the 70's. He will continue on the HF cannula and the NRB due to this. Overall though no acute events overnight and patient has no complaints of chest pain. He has a mild congested productive cough, and shortness of breath mild at rest. Being followed closely by pulmonary services. Vitals today; afebrile, heart rate 75, blood pressure 175/85, oxygenation 92- 93%. Labs reviewed today show a hemoglobin of 12.6, d-dimer 20.86, AST 72, ALT 50, LDH 1975, CRP 1.9. Continues on decadron, baricitinib, zinc, vitamins, lovenox. Pt is alert x3 at the time of my assessment. 11/21/2021 Patient evaluated today sitting up in the bed with a safety analyst at the bedside as he does not do well keeping the oxygen in his nose. Patient currently denies any shortness of breath at rest, reports mild intermittent cough. He denies any abdominal pain, nausea vomiting or diarrhea. When asked questions, patient appears irritated. Vital signs include a temp of 97.4, heart rate 76 sinus rhythm, blood pressure 155/78 he is 90% oxygenation on a 15 L high flow cannula as well as a 100% nonrebreather. Labs today reveal a hemoglobin of 12.7, white count 9.2, sodium 141, potassium 4.5, chloride 106, CO2 32, BUN 35, creatinine 0.94, AST 65, ALT 49, sugars are in the 130s. Venous Doppler negative for bilateral DVT. He is followed closely by pulmonary and ID services, prognosis is guarded for this patient. He continues on Decadron, Lovenox, baricitinib, zinc, vitamins. 11/22/2021 Patient has mild worsening leukocytosis Will repeat BC tomorrow patient is confused and continues to pull his oxygen off and because of the patient is a sitter at this time. Patient remains on nonrebreather. 11/23/21 Patient had fever yesterday morning we'll obtain blood cultures. Patient does have a Ramirez catheter patient is occasionally coughing but not bringing up anything. Infectious disease is following the patient as well. For now will not start any antibiotics unless infectious disease believes he will need any antibiotics. Patient also requirements remains the same. 11/24/2021 Patient does resist status is worse and found to have a pneumothorax patient has a right-sided chest tube at this time. Patient is presently intubated 100% FiO2 PEEP of 15. Patient is also on Levothroid patient is on lisinopril which is being this can you patient is hypotensive probably secondary to intubation patient is also on norepinephrine amlodipine will be discontinued as well. Patient has acute renal failure probably secondary to hypotension. Patient has pro-calcitonin 0.3 not impressive for infection. Patient is presently not on any antibiotics. Patient had high-grade fevers last night with can be just s econdary to cold wind and pneumothorax. Review of systems: Unable to obtain due to his clinical condition patient is presently intubated All inpatient medications were reviewed and appropriate changes in these medications as dictated in the interval history and assessment and plan. PHYSICAL EXAMINATION: GENERAL: intubated sedated, on propofol HEENT: Pupils are round and equally reacting to light. EOMI. No scleral icterus. No conjunctival pallor. Normocephalic, atraumatic. No pharyngeal erythema. No thyromegaly. CARDIOVASCULAR: S1 and S2 present. No murmurs, rubs, or gallops. PULMONARY: Coarse scattered rhonchi, bilateral sided chest tube ABDOMEN: Soft, nontender, nondistended, normoactive bowel sounds. No palpable organomegaly. Obese. MUSCULOSKELETAL: No joint swelling or deformity. EXTREMITIES: No cyanosis, clubbing, mild pedal edema. NEUROLOGICAL: Gross neurological examination did not reveal any focal deficits. SKIN: No rashes. Assessment and plan Assessment Acute hypoxic respiratory failure secondary to Covid 19 on 15L HF lately intubated 7 pneumothorax: Patient is a right-sided chest tube at this time. -acute renal failure secondary to hypotension lisinopril and amlodipine are being held. Patient is on a low-dose pressor at this time COVID 19 infection with pneumonia -Recurrence of fevers: Workup as mentioned in the interval history. Elevated DD; no evidence for PE, dopplers negative for DVT Hypertension Obesity Hyperglycemia secondary to steroid use GI Prophylaxiss DVT Prophylaxis: Lovenox Plan Continue decadron, baricitinib, zinc, vitamins Continue bronchodilators Continue accuchecks and insulin coverage Repeat labs/inflammatory markers Continue all other supportive care Prognosis remains guarded Objective - Vital Signs Vital signs: Vital Signs Temp 99.1 F 11/24/21 08:00 Pulse 125 H 11/24/21 09:00 Resp 28 H 11/24/21 09:00 BP 178/67 11/24/21 09:00 Pulse Ox 89 L 11/24/21 09:00 Intake & Output 11/23/21 11/24/21 11/24/21 18:59 06:59 18:59 Intake Total 600 79.925 152.446 Output Total 70 90 Balance 600 9.925 62.446 Weight 133.5 kg Intake: IV 30 Invasive Line 4 30 Intake, IV Titration 49.925 152.446 Amount Cisatracurium 200 mg In 31.506 Sodium Chloride 0.9% 180 ml @ 1 MCG/KG/MIN 8.01 mls/hr IV .Q24H [facility] Rx#: [id number] Dexmedetomidine/0.9% NaCl 26.228 (Pmx) 400 mcg In Empty Bag 1 bag @ 0.2 MCG/KG/HR 6.725 mls/hr IV .[id number] [facility] Rx#:[id number] Norepinephrine 4 mg In 50.185 Sodium Chloride 0.9% 250 ml @ 0.05 MCG/KG/MIN 25. 432 mls/hr IV .Q10H [facility] Rx#:[id number] fentaNYL (PF). 1,000 mcg 10.681 In Sodium Chloride 0.9% 80 ml @ 0.5 MCG/KG/HR 6. 675 mls/hr IV .[id number] [facility] Rx#:[id number] propofoL 1,000 mg In 13.016 70.755 Empty Bag 1 bag @ Titrate IV .Q0M [facility] Rx#: [id number] Oral 600 Output: Urine 70 90 Other: Voiding Method Indwelling Catheter Indwelling Catheter Indwelling Catheter # Bowel Movements 0 - Labs CBC & Chem 7: 11/24/21 04:42 11/24/21 04:41 Labs: Abnormal Lab Results - Last 24 Hours (Table) 11/23/21 11/23/21 11/23/21 Range/Units 12:08 12:18 12:18 WBC (3.8-10.6) k/uL RBC (4.30-5.90) m/uL Hgb (13.0-17.5) gm/dL Hct (39.0-53.0) % Neutrophils # (1.3-7.7) k/uL Lymphocytes # (1.0-4.8) k/uL D-Dimer (<0.60) mg/L FEU ABG pH (7.35-7.45) ABG pCO2 (35-45) mmHg ABG pO2 (83-108) mmHg ABG HCO3 (21-25) mmol/L ABG Total CO2 (19-24) mmol/L ABG O2 Saturation (94-97) % BUN (9-20) mg/dL Creatinine (0.66-1.25) mg/dL Glucose (74-99) mg/dL POC Glucose (mg/dL) 138 H (75-99) mg/dL Calcium (8.4-10.2) mg/dL Lactate Dehydrogenase 2051 H (313-618) U/L C-Reactive Protein 16.1 H (<1.0) mg/dL Total Protein (6.3-8.2) g/dL Albumin (3.5-5.0) g/dL Procalcitonin 0.34 H (0.02-0.09) ng/mL Urine Protein (Negative) Urine Blood (Negative) Ur Leukocyte Esterase (Negative) Urine RBC (0-5) /hpf Urine WBC (0-5) /hpf Urine Mucus (None) /hpf 11/23/21 11/23/21 11/23/21 Range/Units 13:15 15:00 16:56 WBC (3.8-10.6) k/uL RBC (4.30-5.90) m/uL Hgb (13.0-17.5) gm/dL Hct (39.0-53.0) % Neutrophils # (1.3-7.7) k/uL Lymphocytes # (1.0-4.8) k/uL D-Dimer 27.73 H (<0.60) mg/L FEU ABG pH (7.35-7.45) ABG pCO2 (35-45) mmHg ABG pO2 (83-108) mmHg ABG HCO3 (21-25) mmol/L ABG Total CO2 (19-24) mmol/L ABG O2 Saturation (94-97) % BUN (9-20) mg/dL Creatinine (0.66-1.25) mg/dL Glucose (74-99) mg/dL POC Glucose (mg/dL) 163 H (75-99) mg/dL Calcium (8.4-10.2) mg/dL Lactate Dehydrogenase (313-618) U/L C-Reactive Protein (<1.0) mg/dL Total Protein (6.3-8.2) g/dL Albumin (3.5-5.0) g/dL Procalcitonin (0.02-0.09) ng/mL Urine Protein 1+ H (Negative) Urine Blood Small H (Negative) Ur Leukocyte Esterase Moderate H (Negative) Urine RBC 25 H (0-5) /hpf Urine WBC 26 H (0-5) /hpf Urine Mucus Moderate H (None) /hpf 11/23/21 11/24/21 11/24/21 Range/Units 20:12 02:18 04:41 WBC (3.8-10.6) k/uL RBC (4.30-5.90) m/uL Hgb (13.0-17.5) gm/dL Hct (39.0-53.0) % Neutrophils # (1.3-7.7) k/uL Lymphocytes # (1.0-4.8) k/uL D-Dimer (<0.60) mg/L FEU ABG pH (7.35-7.45) ABG pCO2 (35-45) mmHg ABG pO2 (83-108) mmHg ABG HCO3 (21-25) mmol/L ABG Total CO2 (19-24) mmol/L ABG O2 Saturation (94-97) % BUN 61 H (9-20) mg/dL Creatinine 1.64 H (0.66-1.25) mg/dL Glucose 154 H (74-99) mg/dL POC Glucose (mg/dL) 231 H 158 H (75-99) mg/dL Calcium 8.2 L (8.4-10.2) mg/dL Lactate Dehydrogenase (313-618) U/L C-Reactive Protein (<1.0) mg/dL Total Protein 5.4 L (6.3-8.2) g/dL Albumin 2.5 L (3.5-5.0) g/dL Procalcitonin (0.02-0.09) ng/mL Urine Protein (Negative) Urine Blood (Negative) Ur Leukocyte Esterase (Negative) Urine RBC (0-5) /hpf Urine WBC (0-5) /hpf Urine Mucus (None) /hpf 11/24/21 11/24/21 11/24/21 Range/Units 04:42 06:29 08:04 WBC 11.6 H (3.8-10.6) k/uL RBC 3.78 L (4.30-5.90) m/uL Hgb 11.5 L (13.0-17.5) gm/dL Hct 36.0 L (39.0-53.0) % Neutrophils # 10.7 H (1.3-7.7) k/uL Lymphocytes # 0.3 L (1.0-4.8) k/uL D-Dimer (<0.60) mg/L FEU ABG pH 7.33 L (7.35-7.45) ABG pCO2 57 H (35-45) mmHg ABG pO2 70 L (83-108) mmHg ABG HCO3 30 H (21-25) mmol/L ABG Total CO2 31 H (19-24) mmol/L ABG O2 Saturation 93.5 L (94-97) % BUN (9-20) mg/dL Creatinine (0.66-1.25) mg/dL Glucose (74-99) mg/dL POC Glucose (mg/dL) 190 H (75-99) mg/dL Calcium (8.4-10.2) mg/dL Lactate Dehydrogenase (313-618) U/L C-Reactive Protein (<1.0) mg/dL Total Protein (6.3-8.2) g/dL Albumin (3.5-5.0) g/dL Procalcitonin (0.02-0.09) ng/mL Urine Protein (Negative) Urine Blood (Negative) Ur Leukocyte Esterase (Negative) Urine RBC (0-5) /hpf Urine WBC (0-5) /hpf Urine Mucus (None) /hpf Microbiology - Last 24 Hours (Table) 11/23/21 15:00 Urine Culture - Preliminary Urine,Voided
--- NOTE | 2021-11-24 11:35 | P.PN ---
Subjective Progress Note Date: 11/24/21 Principal diagnosis: Acute hypoxic respiratory failure secondary to COVID-19 pneumonia The patient is seen today 11/22/2021 in follow-up on the selective care unit. He is currently sitting up in bed. He is restless. Attempting to climb out of bed. Apparently he had sustained one or 2 falls this admission. There is currently a sleeve setter safety stitch at the bedside. He needs constant reminding to stay in bed and use his urinal or weight for assistance to get up and help them to t he restroom. He is currently maintaining O2 saturations in the low 90s with 15 L high flow nasal cannula +800% nonrebreather mask. He is febrile today with a temperature 101.1. Weight count 13.3. Hemoglobin 12.3. Lymphocytes 0.7. Sodium 141 potassium 4.3. Creatinine 0.93. Glucose 152. AST 53. ALT 39. He is continued on Baricitinib, Decadron, Lovenox, vitamin supplements. Venous Dopplers of the lower extremities were negative for DVT. Previous computed tomography scan of the brain revealed no acute intracranial process. The patient is seen today 11/23/2021 in follow-up on the selective care unit. He is currently sitting up in bed. He has a sleeve setter safety stitch at the bedside. He continues to take off his oxygen and desaturates quickly into the 70s. He is on 15 L high flow nasal cannula +100% nonrebreather mask with O2 saturations in the low 90s. He did have a temp 100.9 earlier this morning. Blood pressure stable. white count 9.3. Hemoglobin 12.4. Lymphocytes 0.8. Sodium 137. Potassium 4.3. Creatinine 1.00. Chest x-ray, Procalcitonin,inflammatory markers pending. appendectomy is continued on Baricitinib, Lovenox, Decadron, vitamin supplements Patient was reevaluated today on 11/24/21, last night the patient deteriorated, he kept removing his BiPAP, he kept desaturating, then we transfer the patient to the ICU tried on BiPAP again and on Precedex, patient could not tolerated. Then proceeded to intubating the patient and he is now on assist control rate of 28 tidal volume 450 FiO2 on the percent and PEEP of 10 and a increase in up to 14. Shortly after he was intubated, post intubation chest x-ray showed a large right-sided pneumothorax, I was notified about this pneumothorax early this morning, and I called the ER physician who was willing to come up and place a stat right-sided tube thoracostomy for his tension pneumothorax. This was done uneventfully, and there is evidence of complete reexpansion of the right lung. Patient remains on mechanical ventilation, he is on Nimbex at 1 mcg/kg/m she is on propofol at 50 mcg/kg/m and fentanyl at 1.5 mcg/kg per hour. Patient was on norepinephrine last night however norepinephrine has been discontinued since intubation and right-sided chest tube placement. ABG today showed a pO2 of 70 pCO2 57 pH of 7.33. WBC count is 11.6 hemoglobin is 11.5. Electrolytes are normal BUN is 61 creatinine 1.64. Objective - Vital Signs Vital signs: Vital Signs Temp 99.1 F 11/24/21 08:00 Pulse 118 H 11/24/21 11:00 Resp 28 H 11/24/21 11:00 BP 121/72 11/24/21 11:00 Pulse Ox 90 L 11/24/21 11:00 Intake & Output 11/23/21 11/24/21 11/24/21 18:59 06:59 18:59 Intake Total 600 79.925 316.985 Output Total 70 150 Balance 600 9.925 166.985 Weight 133.5 kg Intake: IV 30 Invasive Line 4 30 Intake, IV Titration 49.925 316.985 Amount Cisatracurium 200 mg In 31.506 Sodium Chloride 0.9% 180 ml @ 1 MCG/KG/MIN 8.01 mls/hr IV .Q24H [facility] Rx#: [id number] Dexmedetomidine/0.9% NaCl 26.228 (Pmx) 400 mcg In Empty Bag 1 bag @ 0.2 MCG/KG/HR 6.725 mls/hr IV .[id number] [facility] Rx#:[id number] Norepinephrine 4 mg In 50.185 Sodium Chloride 0.9% 250 ml @ 0.05 MCG/KG/MIN 25. 432 mls/hr IV .Q10H [facility] Rx#:[id number] fentaNYL (PF). 1,000 mcg 10.681 66.416 In Sodium Chloride 0.9% 80 ml @ 0.5 MCG/KG/HR 6. 675 mls/hr IV .[id number] [facility] Rx#:[id number] propofoL 1,000 mg In 13.016 168.878 Empty Bag 1 bag @ Titrate IV .Q0M [facility] Rx#: [id number] Oral 600 Output: Urine 70 150 Other: Voiding Method Indwelling Catheter Indwelling Catheter Indwelling Catheter # Bowel Movements 0 - Exam Physical Exam revealed a 76-year-old white male intubated and sedated paralyzed on mechanical ventilation. Head: Atraumatic normocephalic endotracheal tube and orogastric tube are intact. HEENT:[Neck is supple.] [No neck masses.] [No thyromegaly.] [No JVD.] Chest: [Symmetrical chest expansion crackles at the bases bilaterally, right- sided chest tube is noted with pleural VAC and air leak noted. Cardiac Exam: [Normal S1 and S2, no S3 gallop, no murmur.] Abdomen: [Obese, Soft, nontender, no megaly, no rebound, no guarding, normal bowel sounds.] Extremities: [No clubbing, no edema, no cyanosis.] Neurological Exam: Not assessed patient is sedated and paralyzed. Psychiatric could not assess patient is sedated and paralyzed. - Labs CBC & Chem 7: 11/24/21 04:42 11/24/21 04:41 Labs: Abnormal Lab Results - Last 24 Hours (Table) 11/23/21 11/23/21 11/23/21 Range/Units 12:08 12:18 12:18 WBC (3.8-10.6) k/uL RBC (4.30-5.90) m/uL Hgb (13.0-17.5) gm/dL Hct (39.0-53.0) % Neutrophils # (1.3-7.7) k/uL Lymphocytes # (1.0-4.8) k/uL D-Dimer (<0.60) mg/L FEU ABG pH (7.35-7.45) ABG pCO2 (35-45) mmHg ABG pO2 (83-108) mmHg ABG HCO3 (21-25) mmol/L ABG Total CO2 (19-24) mmol/L ABG O2 Saturation (94-97) % BUN (9-20) mg/dL Creatinine (0.66-1.25) mg/dL Glucose (74-99) mg/dL POC Glucose (mg/dL) 138 H (75-99) mg/dL Calcium (8.4-10.2) mg/dL Lactate Dehydrogenase 2051 H (313-618) U/L C-Reactive Protein 16.1 H (<1.0) mg/dL Total Protein (6.3-8.2) g/dL Albumin (3.5-5.0) g/dL Procalcitonin 0.34 H (0.02-0.09) ng/mL Urine Protein (Negative) Urine Blood (Negative) Ur Leukocyte Esterase (Negative) Urine RBC (0-5) /hpf Urine WBC (0-5) /hpf Urine Mucus (None) /hpf 11/23/21 11/23/21 11/23/21 Range/Units 13:15 15:00 16:56 WBC (3.8-10.6) k/uL RBC (4.30-5.90) m/uL Hgb (13.0-17.5) gm/dL Hct (39.0-53.0) % Neutrophils # (1.3-7.7) k/uL Lymphocytes # (1.0-4.8) k/uL D-Dimer 27.73 H (<0.60) mg/L FEU ABG pH (7.35-7.45) ABG pCO2 (35-45) mmHg ABG pO2 (83-108) mmHg ABG HCO3 (21-25) mmol/L ABG Total CO2 (19-24) mmol/L ABG O2 Saturation (94-97) % BUN (9-20) mg/dL Creatinine (0.66-1.25) mg/dL Glucose (74-99) mg/dL POC Glucose (mg/dL) 163 H (75-99) mg/dL Calcium (8.4-10.2) mg/dL Lactate Dehydrogenase (313-618) U/L C-Reactive Protein (<1.0) mg/dL Total Protein (6.3-8.2) g/dL Albumin (3.5-5.0) g/dL Procalcitonin (0.02-0.09) ng/mL Urine Protein 1+ H (Negative) Urine Blood Small H (Negative) Ur Leukocyte Esterase Moderate H (Negative) Urine RBC 25 H (0-5) /hpf Urine WBC 26 H (0-5) /hpf Urine Mucus Moderate H (None) /hpf 11/23/21 11/24/21 11/24/21 Range/Units 20:12 02:18 04:41 WBC (3.8-10.6) k/uL RBC (4.30-5.90) m/uL Hgb (13.0-17.5) gm/dL Hct (39.0-53.0) % Neutrophils # (1.3-7.7) k/uL Lymphocytes # (1.0-4.8) k/uL D-Dimer (<0.60) mg/L FEU ABG pH (7.35-7.45) ABG pCO2 (35-45) mmHg ABG pO2 (83-108) mmHg ABG HCO3 (21-25) mmol/L ABG Total CO2 (19-24) mmol/L ABG O2 Saturation (94-97) % BUN 61 H (9-20) mg/dL Creatinine 1.64 H (0.66-1.25) mg/dL Glucose 154 H (74-99) mg/dL POC Glucose (mg/dL) 231 H 158 H (75-99) mg/dL Calcium 8.2 L (8.4-10.2) mg/dL Lactate Dehydrogenase (313-618) U/L C-Reactive Protein (<1.0) mg/dL Total Protein 5.4 L (6.3-8.2) g/dL Albumin 2.5 L (3.5-5.0) g/dL Procalcitonin (0.02-0.09) ng/mL Urine Protein (Negative) Urine Blood (Negative) Ur Leukocyte Esterase (Negative) Urine RBC (0-5) /hpf Urine WBC (0-5) /hpf Urine Mucus (None) /hpf 11/24/21 11/24/21 11/24/21 Range/Units 04:42 06:29 08:04 WBC 11.6 H (3.8-10.6) k/uL RBC 3.78 L (4.30-5.90) m/uL Hgb 11.5 L (13.0-17.5) gm/dL Hct 36.0 L (39.0-53.0) % Neutrophils # 10.7 H (1.3-7.7) k/uL Lymphocytes # 0.3 L (1.0-4.8) k/uL D-Dimer (<0.60) mg/L FEU ABG pH 7.33 L (7.35-7.45) ABG pCO2 57 H (35-45) mmHg ABG pO2 70 L (83-108) mmHg ABG HCO3 30 H (21-25) mmol/L ABG Total CO2 31 H (19-24) mmol/L ABG O2 Saturation 93.5 L (94-97) % BUN (9-20) mg/dL Creatinine (0.66-1.25) mg/dL Glucose (74-99) mg/dL POC Glucose (mg/dL) 190 H (75-99) mg/dL Calcium (8.4-10.2) mg/dL Lactate Dehydrogenase (313-618) U/L C-Reactive Protein (<1.0) mg/dL Total Protein (6.3-8.2) g/dL Albumin (3.5-5.0) g/dL Procalcitonin (0.02-0.09) ng/mL Urine Protein (Negative) Urine Blood (Negative) Ur Leukocyte Esterase (Negative) Urine RBC (0-5) /hpf Urine WBC (0-5) /hpf Urine Mucus (None) /hpf Microbiology - Last 24 Hours (Table) 11/23/21 15:00 Urine Culture - Preliminary Urine,Voided Assessment and Plan Assessment: Impression: Acute hypoxic respiratory failure secondary to COVID-19 pneumonia patient failed BiPAP, transferred to the ICU on 11/24/21, intubated shortly after after he failed BiPAP and Precedex treatment. Required intubation and post intubation chest x-ray showed a large right sided tension pneumothorax requiring a right sided chest tube placement done by the ER physician on a stat basis since the patient was developing hypotension during the time of his pneumothorax/tension pneumothorax. Patient is now intubated mechanically ventilated he is on assist control rate of 28 tidal volume 450 FiO2 on the percent and PEEP of 14. Acute COVID-19 pneumonia Benign essential hypertension Elevated d-dimer but negative workup for pulmonary embolism and DVT. Recommendation: Continue ventilatory support. Continue vent settings as above. And adjust accordingly on a daily basis. Continue Baricitinib Lovenox Decadron and vitamin supplements Monitor daily x-rays of the chest. Chest tube to suction and follow on a daily basis. Lines will need to be placed in this patient for hemodynamic monitoring and hemodynamic support if needed. Enteral feeding/nutritional support. GI and DVT prophylaxis. Overall mortality is considered relatively high. Patient is extremely agitated critically ill. Critical care time is over 30 minutes not including time spent on procedures. Time with Patient: Greater than 30
[2021-11-24 12:03] LABS: Glucose,Whole Blood 142 mg/dL (75-99)
--- NOTE | 2021-11-24 14:24 | XR ---
EXAMINATION TYPE: XR chest 1V portable DATE OF EXAM: 11/24/2021 Comparison: 11/24/2021 earlier today Clinical History: 76-year-old male central line rt subclavian Findings: ETT tube is satisfactory. NG tube side hole below the GE junction. Consider further advancement into the stomach. Heart upper limits of normal in size. Patchy and confluent bilateral airspace opacity pe rsists. Right-sided chest tube is present. There appears to be a trace right apical pneumothorax joe uring 3 mm. Right subclavian CVC tip estimated to be cavoatrial junction region. Impression: 1. A right-sided chest tube in place. A trace 3 mm right apical pneumothorax is not seen. 2. Right subclavian CVC tip not well seen, estimated to be near the cavoatrial junction. 3. NG tube side hole at the GE junction. Consider slight further advancement into the stomach. 4. Continued patchy and confluent bilateral airspace disease.
[2021-11-24] MEDS: CEFEPIME 2 GM in SODIUM CHLORIDE 0.9% 100 ML IVPB SCH ×2 (14:31→20:42)
--- NOTE | 2021-11-24 17:38 | XR ---
EXAMINATION TYPE: XR chest 1V portable DATE OF EXAM: 11/24/2021 Comparison: 11/24/2021 Clinical History: 76 year-old male shortness of breath, difficulty breathing Findings: ET and NG tubes are satisfactory. Right-sided chest tube in place. Suggestion of a trace 4 mm pneumot horax along the lateral margin. Suspect subtle visualization of the apical component as well. Not sig nificantly increased from prior. Right subclavian CVC tip near the caval atrial junction. Hardware limits of normal size. Bilateral pa tchy and confluent airspace opacity. Impression: 1. Right-sided chest tube in place. Trace 4 mm right-sided pneumothorax redemonstrated. The lateral c omponent is now better seen. Apical component subtly visualized. Not significantly changed. 2. Continued patchy and confluent bilateral airspace disease.
[2021-11-24 17:53] LABS: Glucose,Whole Blood 148 mg/dL (75-99)
[2021-11-24 18:05] VITALS: RESP 34
--- NOTE | 2021-11-24 18:09 | OP ---
OPERATIVE REPORT OPERATIVE REPORT: Placement of right subclavian central line. PREOPERATIVE DIAGNOSIS: Acute hypoxic respiratory failure secondary to COVID-19 pneumonia. POSTOPERATIVE DIAGNOSIS: Acute hypoxic respiratory failure secondary to COVID-19 pneumonia. ANESTHESIA USED: 2 mL of 1% lidocaine. PROCEDURE DESCRIPTION: The patient was placed in a supine position. The area of the right subclavian region was prepared in a sterile fashion and drapes were applied. The area below the right clavicle was anesthetized locally. Using the infraclavicular approach, the right subclavian vein was cannulated easily. Guidewire was placed. A triple-lumen catheter was inserted over the guidewire, and the guidewire was removed. Good blood flow noted in the 3 different ports of the triple-lumen catheter. Line was secured using 3.0 silk sutures. Chest x-ray showed adequate placement and no complications. The procedure was well tolerated. MMODL / IJN: [id number] /
--- NOTE | 2021-11-24 18:09 | OP ---
OPERATIVE REPORT OPERATIVE REPORT: Placement of left radial arterial line. PREOPERATIVE DIAGNOSIS: Acute hypoxic respiratory failure secondary to COVID-19 pneumonia. POSTOPERATIVE DIAGNOSIS: Acute hypoxic respiratory failure secondary to COVID-19 pneumonia. ANESTHESIA USED: None deployed. PROCEDURE DESCRIPTION: The left wrist was prepared in a sterile fashion and drapes were applied. The left radial artery was palpated, cannulated easily, and a guidewire was placed. A Cook's catheter was inserted over the guidewire, and the guidewire was removed. Good blood flow, good waveform noted. No evidence of complications. Line was secured using 3.0 silk sutures. MMODL / IJN: [id number] /
[2021-11-24] MEDS ORDERED: NOREPINEPHRINE 32 MG in SODIUM CHLORIDE 0.9% 218 ML IV SCH (19:15)
--- NOTE | 2021-11-24 19:48 | PN ---
PROGRESS NOTE DATE OF SERVICE: 11/24/2021 REASON FOR FOLLOWUP: 1. COVID-19 pneumonia. 2. New fever. INTERVAL HISTORY: The patient did have worsening of his respiratory status. Patient ended up getting intubated. Patient also spiked a fever last evening and this morning. The patient is currently on low-dose pressor support. Patient also developed a pneumothorax requiring chest tube placement. No significant purulent secretions through ET, diarrhea or any other changes reported by the nursing staff. PHYSICAL EXAMINATION: Blood pressure was 133/39, pulse of 93, temperature 99. He is 96% on 100% FiO2. General description is an elderly male lying in bed in no distress. Respiratory system: Unlabored breathing, decreased intensity of breath sounds. No wheeze. Heart S1, S2. Regular rate and rhythm. Abdomen soft, no tenderness. LABS: Hemoglobin is 11.5, white count 11.6, creatinine 1.64. Procalcitonin is 2.31. DIAGNOSTIC IMPRESSION AND PLAN: Patient with acute respiratory failure secondary to COVID-19 pneumonia, now with significant worsening of respiratory status requiring intubation and chest tube placement for pneumothorax with a fever, possible pneumonia. Sputum culture has been requested. Blood cultures will be obtained. Will add cefepime and adjust antibiotic further based on the culture report. Continue supportive care. MMODL / IJN: [id number] /
[2021-11-24 20:10] LABS: Glucose,Whole Blood 126 mg/dL (75-99)
[2021-11-24 20:25] LABS: Albumin 2.5 g/dL (3.5-5.0); Calcium 8.2 mg/dL (8.4-10.2); Magnesium 2.1 mg/dL (1.6-2.3); Potassium 4.8 mmol/L (3.5-5.1); Total Bilirubin 1.3 mg/dL (0.2-1.3); Total Protein 5.3 g/dL (6.3-8.2)
--- NOTE | 2021-11-24 20:28 | XR ---
EXAMINATION TYPE: XR chest 1V DATE OF EXAM: 11/24/2021 COMPARISON: Today HISTORY: Respiratory distress TECHNIQUE: Single view FINDINGS: There is moderate pulmonary interstitial and airspace edema. There is coalescent density in the mid lung ford. There is nasogastric tube in the stomach. Endotracheal tube is 6 cm from the ca rubin. There is right-sided chest tube. There is tiny right apical pneumothorax.. There is right subclavian catheter with the tip probably in the superior vena cava. IMPRESSION: Pulmonary infiltrates consistent with RDS without change. Stable small right apical pneum othorax.
[2021-11-24] MEDS ORDERED: AMIODARONE 360 MG in DEXTROSE 5% IN WATER 200 ML IV ONE ×2 (20:33)
[2021-11-24] MEDS ORDERED: DEXTROSE 5% IN WATER 100 ML with AMIODARONE 150 MG IV ONE ×2 (20:33→23:25)
[2021-11-24] MEDS ORDERED: AMIODARONE IN DEXTROSE,ISO-OSM 360 MG/200 ML PLAST..BAG IV ONE (20:43)
[2021-11-24] MEDS ORDERED: AMIODARONE IN DEXTROSE,ISO-OSM 150 MG/100 ML PLAST..BAG IV ONE (20:43)
[2021-11-24] MEDS ORDERED: SODIUM CHLORIDE 0.9% 1,000 ML IV ONE (21:10)
[2021-11-25] MEDS: fentaNYL (PF). 1,000 MCG in SODIUM CHLORIDE 0.9% 80 ML IV SCH ×2 (01:36→06:36)
[2021-11-25] MEDS ORDERED: AMIODARONE 450 MG in DEXTROSE 5% IN WATER 250 ML IV SCH ×2 (02:45)
[2021-11-25 03:35] LABS: HCT 43.5 % (39.0-53.0); HGB 12.8 gm/dL (13.0-17.5); Hypochromasia Marked; MCH 29.4 pg (25.0-35.0); MCHC 29.3 g/dL (31.0-37.0); Platelet Count 232 k/uL (150-450); RBC 4.34 m/uL (4.30-5.90); RDW 13.6 % (11.5-15.5); WBC 5.6 k/uL (3.8-10.6)
[2021-11-25 03:38] LABS: ABG Base Excess -6.1 mmol/L; ABG HCO3 24 mmol/L (21-25); ABG TCO2 26 mmol/L (19-24); Allen Test Performed? Yes
[2021-11-25 03:42] LABS: ABG PCO2 77 mmHg (35-45); ABG PO2 57 mmHg (83-108)
[2021-11-25] MEDS: ARTIFICIAL TEARS-HYPROMELLOSE DROPS 15 ML BTL BOTH EYES SCH (03:44)
[2021-11-25 03:46] LABS: Albumin 2.5 g/dL (3.5-5.0); Total Bilirubin 1.5 mg/dL (0.2-1.3); Total Protein 5.3 g/dL (6.3-8.2)
[2021-11-25] MEDS ORDERED: SODIUM BICARB 8.4% 50 ML SYR (1 MEQ/ML) IV STA ×2 (03:46→05:51)
[2021-11-25] MEDS ORDERED: LIDOCAINE 1% INJ 10MG/ML (20 ML MDV) ONE (03:57)
--- NOTE | 2021-11-25 04:09 | XR ---
EXAMINATION TYPE: XR chest 1V DATE OF EXAM: 11/25/2021 COMPARISON: Yesterday HISTORY: Respiratory failure TECHNIQUE: FINDINGS: endotracheal tube is 5 cm from the abida. There is right-sided chest tube. There is left side pneumo thorax approximately 40%. Trachea is midline. Heart size is normal. There is patchy bilateral pulmona ry airspace edema. There is nasogastric tube in the stomach. There is right subclavian catheter with tip in the superior vena cava. IMPRESSION: Left side pneumothorax appears new compared to yesterday. Right-sided chest tube in good position. Endotracheal tube in good position. No evidence of tension.
[2021-11-25 04:22] LABS: MCV 100.3 fL (80.0-100.0)
--- NOTE | 2021-11-25 04:33 | XR ---
EXAMINATION TYPE: XR chest 1V portable DATE OF EXAM: 11/25/2021 COMPARISON: Chest tube HISTORY: Today TECHNIQUE: Single view FINDINGS: The endotracheal tube is 3 cm from the abida. There are bilateral chest tubes in good posi tion. There is some mild soft tissue air on the left and right chest wall. Left side pneumothorax is mostly cleared compared to recent exam. There is moderate pulmonary patchy edema. Trachea is midline. There is right subclavian catheter with tip in the superior vena cava. There is nasogastric tube in the stomach. IMPRESSION: There is almost complete clearing of the left side pneumothorax. Moderate pulmonary edema consistent with RDS and not changed.
[2021-11-25] MEDS: CEFEPIME 2 GM in SODIUM CHLORIDE 0.9% 100 ML IVPB SCH (04:52)
--- NOTE | 2021-11-25 05:20 | ED ---
Medical Decision Making - Medical Decision Making I received a phone call from the dry man on-call, that this patient in the ICU had some respiratory distress and that an x-ray had just shown evidence of developing tension pneumothorax. I did go to see the patient, the chest x-ray does show pneumothorax on the patient's blood pressure decreasing. In light of this, emergent chest tube indicated. Patient is prepped and draped in sterile fashion. 1% lidocaine used to provide local anesthesia for the scan and then also deep. Standard incision in the midaxillary line followed by blunt dissection. When the intercostal spaces entered there is large amount of air that is freed, consistent with developing tension pneumothorax. I did perform digital exam to ensure there were no adhesions and then pass the tube without complication. The tube is then sutured in place. Dressing provided by nursing staff. The tube is attached to suction. I did review the post placement x-ray which confirms placement and improvement in the aeration of the left lung. - Lab Data Result diagrams: 11/25/21 03:20 11/25/21 03:20 Lab Results 11/13/21 11/13/21 11/13/21 Range/Units 08:44 08:44 08:44 WBC 4.1 (3.8-10.6) k/uL RBC 4.02 L (4.30-5.90) m/uL Hgb 12.7 L (13.0-17.5) gm/dL Hct 36.1 L (39.0-53.0) % MCV 89.8 (80.0-100.0) fL MCH 31.5 (25.0-35.0) pg MCHC 35.1 (31.0-37.0) g/dL RDW 12.7 (11.5-15.5) % Plt Count 117 L (150-450) k/uL MPV 7.6 Neutrophils % 82 % Lymphocytes % 14 % Monocytes % 3 % Eosinophils % 0 % Basophils % 0 % Neutrophils # 3.4 (1.3-7.7) k/uL Lymphocytes # 0.6 L (1.0-4.8) k/uL Monocytes # 0.1 (0-1.0) k/uL Eosinophils # 0.0 (0-0.7) k/uL Basophils # 0.0 (0-0.2) k/uL Sodium 128 L (137-145) mmol/L Potassium 4.0 (3.5-5.1) mmol/L Chloride 96 L (98-107) mmol/L Carbon Dioxide 24 (22-30) mmol/L Anion Gap 8 mmol/L BUN 23 H (9-20) mg/dL Creatinine 0.99 (0.66-1.25) mg/dL Est GFR (CKD-EPI)AfAm 86 (>60 ml/min/1.73 sqM) Est GFR (CKD-EPI)NonAf 75 (>60 ml/min/1.73 sqM) Glucose 142 H (74-99) mg/dL Calcium 7.8 L (8.4-10.2) mg/dL Total Bilirubin 0.7 (0.2-1.3) mg/dL AST 58 (17-59) U/L ALT 15 (4-49) U/L Alkaline Phosphatase 45 (38-126) U/L Troponin I 0.080 H* (0.000-0.034) ng/mL Total Protein 6.3 (6.3-8.2) g/dL Albumin 3.3 L (3.5-5.0) g/dL Coronavirus (PCR) (Not Detectd) 11/13/21 Range/Units 08:44 WBC (3.8-10.6) k/uL RBC (4.30-5.90) m/uL Hgb (13.0-17.5) gm/dL Hct (39.0-53.0) % MCV (80.0-100.0) fL MCH (25.0-35.0) pg MCHC (31.0-37.0) g/dL RDW (11.5-15.5) % Plt Count (150-450) k/uL MPV Neutrophils % % Lymphocytes % % Monocytes % % Eosinophils % % Basophils % % Neutrophils # (1.3-7.7) k/uL Lymphocytes # (1.0-4.8) k/uL Monocytes # (0-1.0) k/uL Eosinophils # (0-0.7) k/uL Basophils # (0-0.2) k/uL Sodium (137-145) mmol/L Potassium (3.5-5.1) mmol/L Chloride (98-107) mmol/L Carbon Dioxide (22-30) mmol/L Anion Gap mmol/L BUN (9-20) mg/dL Creatinine (0.66-1.25) mg/dL Est GFR (CKD-EPI)AfAm (>60 ml/min/1.73 sqM) Est GFR (CKD-EPI)NonAf (>60 ml/min/1.73 sqM) Glucose (74-99) mg/dL Calcium (8.4-10.2) mg/dL Total Bilirubin (0.2-1.3) mg/dL AST (17-59) U/L ALT (4-49) U/L Alkaline Phosphatase (38-126) U/L Troponin I (0.000-0.034) ng/mL Total Protein (6.3-8.2) g/dL Albumin (3.5-5.0) g/dL Coronavirus (PCR) Detected A (Not Detectd) Disposition Clinical Impression: Pneumonia due to COVID-19 virus, Hypoxia, Elevated troponin, Pneumothorax Disposition: ADMITTED IP TO THIS [facility] Condition: Stable Procedures - Chest Tube Insertion Consent Obtained: emergent situation Side of Procedure: left Indication: Pneumothorax Placed on monitor/pulse oximetry: Yes Site Prep: Chloroprep Local Anesthesia: Lidocaine 1% Insertion Site: 5th Intercostal Space, Midaxillary Scalpel: #15 Open into Pleural Space Using: Trocar Tube Size (Welsh): 28 Returns: Air Sutured in Place: Yes Type of Suture: Silk Dressing Applied: Petroleum Gauze Attached to Suction: Yes Type of Suction: Pleuravac Repeat X-ray Results: Lung Inflated Patient Tolerated Procedure: well, no complications
[2021-11-25 05:40] LABS: ABG Base Excess -4.7 mmol/L; ABG HCO3 25 mmol/L (21-25); ABG Oxygen Saturation 87.4 % (94-97); ABG TCO2 28 mmol/L (19-24)
[2021-11-25 05:41] LABS: Band Neutrophils % 48 %; Lymphocytes # (M) 1.06 k/uL (1.0-4.8); Metamyelocytes # (M) 0.06 k/uL (0); Metamyelocytes % 1 %; Monocytes # (M) 0.17 k/uL (0-1.0); Neutrophils % (M) 30 %; Nucleated Red Blood Cells 0 /100 WBC (0-0); Total Cells Counted 200
[2021-11-25 05:42] LABS: Anisocytosis (M) Present
[2021-11-25 05:42] LABS: ABG PCO2 81 mmHg (35-45)
[2021-11-25 05:43] LABS: ABG PO2 55 mmHg (83-108); Allen Test Performed? no
[2021-11-25] MEDS ORDERED: DEXTROSE 5% IN WATER 1,000 ML with SODIUM BICARB (1 MEQ/ML) 150 ML IV SCH (06:30)
[2021-11-25] MEDS: INSULIN ASPART (NovoLOG) 100 UNIT/ML VIAL SQ SCH (06:59)
[2021-11-25 07:09] LABS: Glucose,Whole Blood 136 mg/dL (75-99)
[2021-11-25 07:15] VITALS: BP 114/65; PULSE 135
[2021-11-25] MEDS: ALBUTEROL HFA INHALER INHALATION SCH (07:35)
[2021-11-25] MEDS: FLUTICASONE 220 MCG INHALER INHALATION SCH (07:35)
--- NOTE | 2021-11-25 08:48 | P.CRDCN ---
History of Present Illness Consult date: 11/25/21 History of present illness: This is a 76-year-old gentleman with history of hypertension is admitted to the hospital with complaints of increasing shortness of breath, cough and covid pneumonia. We are consulted initially for abnormal troponin and patient was seen by Dr. Carmona on 11/13/2021. Echocardiogram done at the time showed an ejection fraction of 5055%. The troponin value was felt to be secondary to hypoxia. On of this month, patient was transferred to intensive care unit because of progressive hypoxia. Patient was subsequently mechanically ventil ated. It appears that patient developed pneumothorax requiring the chest tubes. Patient also went into atrial fibrillation with RVR. We are consulted for further management. Patient was initiated on IV amiodarone drip and bolus. Initial heart rate is 185 and subsequently came to 140. Patient appears to be in flutter with 2 to one conduction. We given additional boluses of amiodarone. His heart rate is still 130. Patient prognosis seemed to be poor. Discussions are being held with the family regarding further care. Prognosis is poor Review of Systems Not obtained Past Medical History Past Medical History: Hypertension History of Any Multi-Drug Resistant Organisms: None Reported Past Surgical History: No Surgical Hx Reported Past Psychological History: No Psychological Hx Reported Smoking Status: Never smoker Past Alcohol Use History: None Reported Past Drug Use History: None Reported Medications and Allergies Home Medications Medication Instructions Recorded Confirmed Type Cholecalciferol [Vitamin D3 (25 50 mcg PO DAILY 11/13/21 11/13/21 History Mcg = 1000 Iu)] Allergies Allergy/AdvReac Type Severity Reaction Status Date / Time No Known Allergies Allergy Verified 11/13/21 09:57 Physical Exam Vitals: Vital Signs Temp Pulse Resp BP Pulse Ox 11/25/21 07:00 135 H 114/65 89 L 11/25/21 06:45 154 H 89 L 11/25/21 06:30 154 H 90 L 11/25/21 06:15 152 H 87 L 11/25/21 06:00 152 H 88 L 11/25/21 05:45 152 H 88 L 11/25/21 05:30 152 H 89 L 11/25/21 05:15 152 H 90 L 11/25/21 05:00 152 H 34 H 90 L 11/25/21 04:45 152 H 91/78 91 L 11/25/21 04:30 147 H 89 L 11/25/21 04:15 147 H 34 H 105/71 93 L 11/25/21 04:00 98.2 F 152 H 34 H 91 L 11/25/21 03:45 152 H 82/57 88 L 11/25/21 03:30 151 H 88 L 11/25/21 03:15 151 H 89 L 11/25/21 03:00 146 H 34 H 91 L 11/25/21 02:45 149 H 92 L 11/25/21 02:30 158 H 34 H 91 L 11/25/21 02:15 147 H 34 H 106/61 93 L 11/25/21 02:00 144 H 34 H 92 L 11/25/21 01:45 113 H 27 H 73/52 90 L 11/25/21 01:30 140 H 34 H 94 L 11/25/21 01:15 140 H 34 H 94 L 11/25/21 01:00 144 H 22 94 L 11/25/21 00:45 138 H 34 H 93 L 11/25/21 00:30 138 H 34 H 93 L 11/25/21 00:15 137 H 34 H 94 L 11/25/21 00:00 99.2 F 134 H 34 H 94 L 11/24/21 23:30 142 H 94 L 11/24/21 23:00 142 H 34 H 94 L 11/24/21 22:30 142 H 95 11/24/21 22:00 142 H 34 H 94 L 11/24/21 21:30 147 H 34 H 91 L 11/24/21 21:00 107 H 34 H 91 L 11/24/21 20:30 168 H 34 H 90 L 11/24/21 20:00 149 H 34 H 93 L 11/24/21 19:30 147 H 94 L 11/24/21 19:00 111 H 34 H 99/52 91 L 11/24/21 18:30 110 H 34 H 105/50 91 L 11/24/21 18:00 96 34 H 92/44 86 L 11/24/21 17:30 93 28 H 101/43 88 L 11/24/21 17:00 89 28 H 108/49 86 L 11/24/21 16:30 129 H 28 H 107/50 88 L 11/24/21 16:00 99.3 F 126 H 28 H 129/60 86 L 11/24/21 15:30 126 H 28 H 131/70 92 L 11/24/21 15:00 124 H 28 H 112/57 89 L 11/24/21 14:30 126 H 28 H 113/54 91 L 11/24/21 14:00 124 H 28 H 99/52 90 L 11/24/21 13:30 122 H 28 H 106/58 93 L 11/24/21 13:00 121 H 28 H 110/60 92 L 11/24/21 12:30 120 H 28 H 109/59 95 11/24/21 12:00 99.6 F 67 28 H 111/66 91 L 11/24/21 11:30 117 H 28 H 104/62 90 L 11/24/21 11:00 118 H 28 H 121/72 90 L 11/24/21 10:30 116 H 28 H 112/68 90 L 11/24/21 10:00 87 28 H 125/61 90 L 11/24/21 09:30 70 28 H 82/45 86 L 11/24/21 09:00 125 H 28 H 178/67 89 L Intake and Output 11/24/21 11/25/21 11/25/21 22:59 06:59 14:59 Intake Total 2103.230 902.454 150 Output Total 190 0 70 Balance 1913.230 902.454 80 Intake: IV 1350 400 150 0.9 1350 400 50 Sodium Bicarb 100 Intake, IV Titration 753.230 502.454 Amount Cisatracurium 200 mg In 100.726 Sodium Chloride 0.9% 180 ml @ 1 MCG/KG/MIN 8.01 mls/hr IV .Q24H [facility]ANG Rx#: [id number] Norepinephrine 32 mg In 10.743 102.454 Sodium Chloride 0.9% 218 ml @ 0.05 MCG/KG/MIN 3. 129 mls/hr IV .Q24H [facility]ANG Rx#:[id number] Norepinephrine 4 mg In 166.750 Sodium Chloride 0.9% 250 ml @ 0.05 MCG/KG/MIN 25. 432 mls/hr IV .Q10H [facility]ANG Rx#:[id number] fentaNYL (PF). 1,000 mcg 192.115 200 In Sodium Chloride 0.9% 80 ml @ 0.5 MCG/KG/HR 6. 675 mls/hr IV .[id number] [facility]ANG Rx#:[id number] propofoL 1,000 mg In 282.896 200 Empty Bag 1 bag @ Titrate IV .Q0M [facility]ANG Rx#: [id number] Output: Chest Tube Drainage 50 70 Right Lateral Chest 50 70 Urine 140 0 Other: Voiding Method Indwelling Catheter Indwelling Catheter Weight 137.6 kg ABP, PAP, CO, CI - Last 8 Hours Arterial Blood Pressure 108/52 Arterial Blood Pressure 104/51 Arterial Blood Pressure 121/52 Arterial Blood Pressure 103/53 Arterial Blood Pressure 103/52 Arterial Blood Pressure 94/50 Arterial Blood Pressure 95/51 Arterial Blood Pressure 101/51 Arterial Blood Pressure 103/52 Arterial Blood Pressure 99/50 Arterial Blood Pressure 83/41 Arterial Blood Pressure 139/57 Arterial Blood Pressure 114/58 Arterial Blood Pressure 83/51 Arterial Blood Pressure 76/46 Arterial Blood Pressure 74/45 Arterial Blood Pressure 83/49 Arterial Blood Pressure 88/51 Arterial Blood Pressure 82/49 Arterial Blood Pressure 95/52 Arterial Blood Pressure 90/50 Arterial Blood Pressure 80/44 Arterial Blood Pressure 102/48 Arterial Blood Pressure 105/48 Arterial Blood Pressure 118/51 Arterial Blood Pressure 96/46 Patient is not personally examined. Information is gathered from the chart and nurse's notes Results 11/25/21 03:20 11/25/21 03:20 Cardiac Enzymes 11/24/21 11/25/21 Range/Units 20:00 03:20 AST 25 23 (17-59) U/L CBC 11/25/21 Range/Units 03:20 WBC 5.6 (3.8-10.6) k/uL RBC 4.34 (4.30-5.90) m/uL Hgb 12.8 L (13.0-17.5) gm/dL Hct 43.5 (39.0-53.0) % Plt Count 232 (150-450) k/uL Comprehensive Metabolic Panel 11/24/21 11/25/21 Range/Units 20:00 03:20 Sodium 138 136 L (137-145) mmol/L Potassium 4.8 5.0 (3.5-5.1) mmol/L Chloride 103 104 (98-107) mmol/L Carbon Dioxide 26 22 (22-30) mmol/L BUN 70 H 71 H (9-20) mg/dL Creatinine 2.33 H 3.10 H (0.66-1.25) mg/dL Glucose 143 H 154 H (74-99) mg/dL Calcium 8.2 L 8.0 L (8.4-10.2) mg/dL AST 25 23 (17-59) U/L ALT 18 16 (4-49) U/L Alkaline Phosphatase 47 50 (38-126) U/L Total Protein 5.3 L 5.3 L (6.3-8.2) g/dL Albumin 2.5 L 2.5 L (3.5-5.0) g/dL Current Medications Generic Name Dose Route Start Last Admin Trade Name Freq PRN Reason Stop Dose Admin Acetaminophen 650 mg 11/15/21 11:56 11/24/21 02:14 Acetaminophen Tab 325 Mg Tab PO 650 mg Q6HR PRN Administration Fever and/ or Pain Albuterol Sulfate 2 puff 11/14/21 08:00 11/25/21 07:35 Albuterol Hfa Inhaler INHALATION Not Given RT-QID [facility]ANG Artificial Tears 2 drops 11/24/21 08:00 11/25/21 03:44 Artificial Tears-Hypromellose Drops 15 Ml Btl BOTH EYES 2 drops Q4HR UMANG Administration Ascorbic Acid 1,000 mg 11/15/21 09:00 11/24/21 09:37 Ascorbic Acid 500 Mg Tab PO 1,000 mg DAILY UMANG Administration Baricitinib 4 mg 11/17/21 17:00 11/23/21 17:19 Baricitinib 2 Mg Tablet PO 12/03/21 17:01 4 mg DAILY@1700 UMANG Administration Chlorhexidine Gluconate 15 ml 11/24/21 09:00 11/24/21 20:42 Chlorhexidine Gluconate 15 Ml Cup MUCOUS MEM 15 ml BID UMANG Administration Cholecalciferol 50 mcg 11/14/21 09:00 11/24/21 09:37 Cholecalciferol 25 Mcg (1000 Iu) Tablet PO 50 mcg DAILY UMANG Administration Dexamethasone 6 mg 11/16/21 09:00 11/24/21 09:37 Dexamethasone 2 Mg Tab PO 6 mg DAILY UMANG Administration Enoxaparin Sodium 40 mg 11/13/21 15:30 11/24/21 09:37 Enoxaparin 40 Mg/0.4 Ml Syringe SQ 40 mg Q24HR UMANG Administration Fluticasone Propionate 2 puff 11/15/21 20:00 11/25/21 07:35 Fluticasone 220 Mcg Inhaler INHALATION Not Given RT-BID [facility]ANG Haloperidol Lactate 1 mg 11/22/21 09:27 11/24/21 00:29 Haloperidol Lactate 5 Mg/Ml 1 Ml Vial IVP 1 mg Q8HR PRN Administration Agitation or Acute Psychosis Propofol 1,000 mg/ IV Solution 100 mls @ 0 mls/hr 11/24/21 05:15 11/25/21 05:31 IV 50 mcg/kg/min .Q0M [facility]ANG 40.05 mls/hr Administration Protocol Titrate Fentanyl Citrate 1,000 mcg/ 100 mls @ 6.675 mls/hr 11/24/21 05:15 11/25/21 06:36 Sodium Chloride IV 1.5 mcg/kg/hr .[id number] [facility]ANG 20.025 mls/hr Administration Protocol 0.5 MCG/KG/HR Cisatracurium Besylate 200 mg/ 200 mls @ 8.01 mls/hr 11/24/21 05:30 11/24/21 18:09 Sodium Chloride IV 1.5 mcg/kg/min .Q24H [facility]ANG 12.015 mls/hr Administration Protocol 1 MCG/KG/MIN Cefepime HCl 2 gm/ Sodium 100 mls @ 25 mls/hr 11/24/21 13:00 11/25/21 04:52 Chloride IVPB 25 mls/hr Q8H UMANG Administration Norepinephrine Bitartrate 32 250 mls @ 3.129 mls/hr 11/24/21 19:15 11/25/21 05:00 mg/ Sodium Chloride IV 0.4 mcg/kg/min .Q24H [facility]ANG 25.031 mls/hr Titration Protocol 0.05 MCG/KG/MIN Amiodarone HCl 450 mg/ 250 mls @ 16.667 mls/hr 11/25/21 02:45 11/25/21 02:43 Dextrose/Water IV 11/25/21 20:44 0.5 mg/min .Q15H [facility]ANG 16.667 mls/hr Administration Protocol 0.5 MG/MIN Sodium Bicarbonate 150 ml/ 1,150 mls @ 100 mls/hr 11/25/21 06:30 11/25/21 06:24 Dextrose/Water IV 100 mls/hr .[id number] UMANG Administration Insulin Aspart 0 unit 11/14/21 17:30 11/25/21 06:59 Insulin Aspart (Novolog) 100 Unit/Ml Vial SQ 1 unit ACHS UMANG Administration Protocol Naloxone HCl 0.2 mg 11/24/21 02:36 Naloxone 0.4 Mg/Ml 1 Ml Vial IV Q2M PRN Opioid Reversal Zinc Sulfate 220 mg 11/15/21 09:00 11/24/21 09:37 Zinc Sulfate 220 Mg Cap PO 220 mg DAILY UMANG Administration Intake and Output 11/24/21 11/25/21 11/25/21 22:59 06:59 14:59 Intake Total 2103.230 902.454 150 Output Total 190 0 70 Balance 1913.230 902.454 80 Intake: IV 1350 400 150 0.9 1350 400 50 Sodium Bicarb 100 Intake, IV Titration 753.230 502.454 Amount Cisatracurium 200 mg In 100.726 Sodium Chloride 0.9% 180 ml @ 1 MCG/KG/MIN 8.01 mls/hr IV .Q24H [facility]ANG Rx#: [id number] Norepinephrine 32 mg In 10.743 102.454 Sodium Chloride 0.9% 218 ml @ 0.05 MCG/KG/MIN 3. 129 mls/hr IV .Q24H [facility]ANG Rx#:[id number] Norepinephrine 4 mg In 166.750 Sodium Chloride 0.9% 250 ml @ 0.05 MCG/KG/MIN 25. 432 mls/hr IV .Q10H [facility] Rx#:[id number] fentaNYL (PF). 1,000 mcg 192.115 200 In Sodium Chloride 0.9% 80 ml @ 0.5 MCG/KG/HR 6. 675 mls/hr IV .[id number] [facility] Rx#:[id number] propofoL 1,000 mg In 282.896 200 Empty Bag 1 bag @ Titrate IV .Q0M [facility]ANG Rx#: [id number] Output: Chest Tube Drainage 50 70 Right Lateral Chest 50 70 Urine 140 0 Other: Voiding Method Indwelling Catheter Indwelling Catheter Weight 137.6 kg 11/25/21 03:20 11/25/21 03:20 Assessment and Plan (1) Atrial fibrillation with RVR Current Visit: Yes Status: Acute Code(s): I48.91 - UNSPECIFIED ATRIAL FIBRILLATION SNOMED Code(s): 193823184855952 (2) Elevated troponin Current Visit: Yes Status: Acute Code(s): R77.8 - OTHER SPECIFIED ABNORMALITIES OF PLASMA PROTEINS SNOMED Code(s): 579076342 (3) Pneumonia due to COVID-19 virus Current Visit: Yes Status: Acute Code(s): U07.1 - COVID-19; J12.82 - PNEUMONIA DUE TO CORONAVIRUS DISEASE 2018 SNOMED Code(s): 624388829443207486 Plan: Patient is initiated on amiodarone drip and bolus. Additional bolus was given. There is a discussed with family regarding further care including comfort care. Prognosis is poor
[2021-11-25 08:52] VITALS: TEMP 99.6
[2021-11-25 09:02] VITALS: BMI 40.0
--- NOTE | 2021-11-25 11:02 | P.PN ---
Subjective Progress Note Date: 11/25/21 Principal diagnosis: Acute hypoxic respiratory failure secondary to COVID-19 pneumonia The patient is seen today 11/22/2021 in follow-up on the selective care unit. He is currently sitting up in bed. He is restless. Attempting to climb out of bed. Apparently he had sustained one or 2 falls this admission. There is currently a highway safety engineer at the bedside. He needs constant reminding to stay in bed and use his urinal or weight for assistance to get up and help them to t he restroom. He is currently maintaining O2 saturations in the low 90s with 15 L high flow nasal cannula +800% nonrebreather mask. He is febrile today with a temperature 101.1. Weight count 13.3. Hemoglobin 12.3. Lymphocytes 0.7. Sodium 141 potassium 4.3. Creatinine 0.93. Glucose 152. AST 53. ALT 39. He is continued on Baricitinib, Decadron, Lovenox, vitamin supplements. Venous Dopplers of the lower extremities were negative for DVT. Previous computed tomography scan of the brain revealed no acute intracranial process. The patient is seen today 11/23/2021 in follow-up on the selective care unit. He is currently sitting up in bed. He has a highway safety engineer at the bedside. He continues to take off his oxygen and desaturates quickly into the 70s. He is on 15 L high flow nasal cannula +100% nonrebreather mask with O2 saturations in the low 90s. He did have a temp 100.9 earlier this morning. Blood pressure stable. white count 9.3. Hemoglobin 12.4. Lymphocytes 0.8. Sodium 137. Potassium 4.3. Creatinine 1.00. Chest x-ray, Procalcitonin,inflammatory markers pending. appendectomy is continued on Baricitinib, Lovenox, Decadron, vitamin supplements Patient was reevaluated today on 11/24/21, last night the patient deteriorated, he kept removing his BiPAP, he kept desaturating, then we transfer the patient to the ICU tried on BiPAP again and on Precedex, patient could not tolerated. Then proceeded to intubating the patient and he is now on assist control rate of 28 tidal volume 450 FiO2 on the percent and PEEP of 10 and a increase in up to 14. Shortly after he was intubated, post intubation chest x-ray showed a large right-sided pneumothorax, I was notified about this pneumothorax early this morning, and I called the ER physician who was willing to come up and place a stat right-sided tube thoracostomy for his tension pneumothorax. This was done uneventfully, and there is evidence of complete reexpansion of the right lung. Patient remains on mechanical ventilation, he is on Nimbex at 1 mcg/kg/m she is on propofol at 50 mcg/kg/m and fentanyl at 1.5 mcg/kg per hour. Patient was on norepinephrine last night however norepinephrine has been discontinued since intubation and right-sided chest tube placement. ABG today showed a pO2 of 70 pCO2 57 pH of 7.33. WBC count is 11.6 hemoglobin is 11.5. Electrolytes are normal BUN is 61 creatinine 1.64. Reevaluated today on 11/25/21, patient is doing poorly today, remains in the ICU, intubated and mechanically ventilated. Earlier this morning, I was notified by the nurse taking care of the patient that his chest x-ray is showing a large left-sided pneumothorax. Patient was developing hypotension and atrial fibrillation with RVR, and he was not improving even with maximal doses of norepinephrine I was able to review the chest x-ray, and immediately called the ER physician for a stat chest tube placement on the left side. This was done by Dr. bahena, and follow-up chest x-ray showed improvement, however clinically the patient did not improve much. Patient remains hypertensive remains tachycardic, he is developing profound hypoxemia, hypercapnia and severe respiratory acidosis pO2 is today 55 pCO2 81 pH of 7.10. He is on assist control rate of 34 tidal volume 480 on the percent FiO2 PEEP 18. He is on IV fluid at 50 mL per hour Nimbex at 1.5 fentanyl at 1.5 and propofol. Came into see the patient, family is at bedside, and discussed his condition with the family including and son. Explained to the family that his condition is extremely poor, and mortality in this situation is extremely high. Family requested comfort care measures, and we will proceed with comfort care measures. Will respect family's wishes,let him go peacefully comfortably and dignified. Chest x-ray reviewed labs were reviewed his renal functioning is getting worse with a BUN of 71 creatinine 3.10. WBC count is 5.6 hemoglobin is 12.8. In addition to his drips noted above, patient is on amiodarone and is also on norepinephrine at 0.4 mcg/kg/m. Even discussed the option of trying to place patient in prone position with family, however they feel no need to go that route and prolong the situation any longer. The overall clinical picture is obvious that the patient is not doing well Objective - Vital Signs Vital signs: Vital Signs Temp 99.6 F 11/25/21 08:00 Pulse 135 H 11/25/21 08:45 Resp 34 H 11/25/21 08:45 BP 114/65 11/25/21 07:00 Pulse Ox 87 L 11/25/21 08:45 Intake & Output 11/24/21 11/25/21 11/25/21 18:59 06:59 18:59 Intake Total 4203.160 9732.171 594.426 Output Total 390 20 70 Balance 044.229 1631.171 524.426 Weight 137.6 kg 137.6 kg Intake: IV 350 1550 150 0.9 350 1550 50 Sodium Bicarb 100 Intake, IV Titration 875.930 876.171 444.426 Amount Amiodarone 450 mg In 108.891 Dextrose 5% in Water 250 ml @ 0.5 MG/MIN 16.667 mls/hr IV .Q15H [facility] Rx#: [id number] Cisatracurium 200 mg In 132.232 174.418 Sodium Chloride 0.9% 180 ml @ 1 MCG/KG/MIN 8.01 mls/hr IV .Q24H [facility] Rx#: [id number] Norepinephrine 32 mg In 113.197 106.382 Sodium Chloride 0.9% 218 ml @ 0.05 MCG/KG/MIN 3. 129 mls/hr IV .Q24H [facility] Rx#:[id number] Norepinephrine 4 mg In 138.859 78.076 Sodium Chloride 0.9% 250 ml @ 0.05 MCG/KG/MIN 25. 432 mls/hr IV .Q10H [facility] Rx#:[id number] fentaNYL (PF). 1,000 mcg 166.416 292.115 54.735 In Sodium Chloride 0.9% 80 ml @ 0.5 MCG/KG/HR 6. 675 mls/hr IV .[id number] [facility] Rx#:[id number] propofoL 1,000 mg In 438.423 392.783 Empty Bag 1 bag @ Titrate IV .Q0M PENDING SALE TO [facility] Rx#: [id number] Output: Chest Tube Drainage 50 70 Right Lateral Chest 50 70 Urine 340 20 Other: Voiding Method Indwelling Catheter Indwelling Catheter ABP, PAP, CO, CI - Last Documented Arterial Blood Pressure 94/48 - Exam Physical Exam revealed a 76-year-old white male intubated and sedated paralyzed on mechanical ventilation. Head: Atraumatic normocephalic endotracheal tube and orogastric tube are intact. HEENT:[Neck is supple.] [No neck masses.] [No thyromegaly.] [No JVD.] Chest: [Symmetrical chest expansion crackles at the bases bilaterally, right- sided chest tube is noted with pleural VAC and air leak noted. Left-sided chest tube is also noted which was placed earlier by the ER physician. Evidence of air leak noted. Cardiac Exam: [Normal S1 and S2, no S3 gallop, no murmur.] Abdomen: [Obese, Soft, nontender, no megaly, no rebound, no guarding, normal bowel sounds.] Extremities: [No clubbing, no edema, no cyanosis.] Neurological Exam: Not assessed patient is sedated and paralyzed. Psychiatric could not assess patient is sedated and paralyzed. - Labs CBC & Chem 7: 11/25/21 03:20 11/25/21 03:20 Labs: Abnormal Lab Results - Last 24 Hours (Table) 11/24/21 11/24/21 11/24/21 Range/Units 04:41 12:02 17:51 Hgb (13.0-17.5) gm/dL MCV (80.0-100.0) fL MCHC (31.0-37.0) g/dL Metamyelocytes # (Man) (0) k/uL ABG pH (7.35-7.45) ABG pCO2 (35-45) mmHg ABG pO2 (83-108) mmHg ABG Total CO2 (19-24) mmol/L ABG O2 Saturation (94-97) % Sodium (137-145) mmol/L BUN (9-20) mg/dL Creatinine (0.66-1.25) mg/dL Glucose (74-99) mg/dL POC Glucose (mg/dL) 142 H 148 H (75-99) mg/dL Calcium (8.4-10.2) mg/dL Total Bilirubin (0.2-1.3) mg/dL Total Protein (6.3-8.2) g/dL Albumin (3.5-5.0) g/dL Procalcitonin 2.31 H (0.02-0.09) ng/mL 11/24/21 11/24/21 11/25/21 Range/Units 19:57 20:00 03:20 Hgb 12.8 L (13.0-17.5) gm/dL MCV 100.3 H D (80.0-100.0) fL MCHC 29.3 L (31.0-37.0) g/dL Metamyelocytes # (Man) 0.06 H (0) k/uL ABG pH (7.35-7.45) ABG pCO2 (35-45) mmHg ABG pO2 (83-108) mmHg ABG Total CO2 (19-24) mmol/L ABG O2 Saturation (94-97) % Sodium (137-145) mmol/L BUN 70 H (9-20) mg/dL Creatinine 2.33 H (0.66-1.25) mg/dL Glucose 143 H (74-99) mg/dL POC Glucose (mg/dL) 126 H (75-99) mg/dL Calcium 8.2 L (8.4-10.2) mg/dL Total Bilirubin (0.2-1.3) mg/dL Total Protein 5.3 L (6.3-8.2) g/dL Albumin 2.5 L (3.5-5.0) g/dL Procalcitonin (0.02-0.09) ng/mL 11/25/21 11/25/21 11/25/21 Range/Units 03:20 03:33 05:38 Hgb (13.0-17.5) gm/dL MCV (80.0-100.0) fL MCHC (31.0-37.0) g/dL Metamyelocytes # (Man) (0) k/uL ABG pH 7.10 L* 7.10 L* (7.35-7.45) ABG pCO2 77 H* 81 H* (35-45) mmHg ABG pO2 57 L* 55 L* (83-108) mmHg ABG Total CO2 26 H 28 H (19-24) mmol/L ABG O2 Saturation 88.0 L 87.4 L (94-97) % Sodium 136 L (137-145) mmol/L BUN 71 H (9-20) mg/dL Creatinine 3.10 H (0.66-1.25) mg/dL Glucose 154 H (74-99) mg/dL POC Glucose (mg/dL) (75-99) mg/dL Calcium 8.0 L (8.4-10.2) mg/dL Total Bilirubin 1.5 H (0.2-1.3) mg/dL Total Protein 5.3 L (6.3-8.2) g/dL Albumin 2.5 L (3.5-5.0) g/dL Procalcitonin (0.02-0.09) ng/mL 11/25/21 Range/Units 06:57 Hgb (13.0-17.5) gm/dL MCV (80.0-100.0) fL MCHC (31.0-37.0) g/dL Metamyelocytes # (Man) (0) k/uL ABG pH (7.35-7.45) ABG pCO2 (35-45) mmHg ABG pO2 (83-108) mmHg ABG Total CO2 (19-24) mmol/L ABG O2 Saturation (94-97) % Sodium (137-145) mmol/L BUN (9-20) mg/dL Creatinine (0.66-1.25) mg/dL Glucose (74-99) mg/dL POC Glucose (mg/dL) 136 H (75-99) mg/dL Calcium (8.4-10.2) mg/dL Total Bilirubin (0.2-1.3) mg/dL Total Protein (6.3-8.2) g/dL Albumin (3.5-5.0) g/dL Procalcitonin (0.02-0.09) ng/mL Microbiology - Last 24 Hours (Table) 11/24/21 16:10 Gram Stain - Preliminary Sputum Sputum Culture - Preliminary 11/23/21 15:00 Urine Culture - Final Urine,Voided 11/23/21 12:18 Blood Culture - Preliminary Blood No Growth after 24 hours 11/23/21 12:10 Blood Culture - Preliminary Blood No Growth after 24 hours Assessment and Plan Assessment: Impression: Acute hypoxic respiratory failure secondary to COVID-19 pneumonia patient failed BiPAP, transferred to the ICU on 11/24/21, intubated shortly after after he failed BiPAP and Precedex treatment. Required intubation and post intubation chest x-ray showed a large right sided tension pneumothorax requiring a right sided chest tube placement done by the ER physician on a stat basis since the patient was developing hypotension during the time of his pneumothorax/tension pneumothorax. Patient is now intubated mechanically ventilated he is on assist control rate of 28 tidal volume 450 FiO2 on the percent and PEEP of 14. Acute COVID-19 pneumonia Benign essential hypertension Elevated d-dimer but negative workup for pulmonary embolism and DVT. Left sided tension pneumothorax requiring chest tube placement by the ER physician. This was done this morning. Acute kidney injury secondary to COVID-19 infection and possibly ATN. Profound hypotension and septic shock picture. New onset atrial fibrillation with RVR. . Recommendation: Proceed to comfort care measures Had a long discussion with family at bedside regarding his status and explained to them the situation Family requested comfort care. Critical care time is over 30 minutes Time with Patient: Greater than 30
--- NOTE | 2021-11-25 11:09 | P.DS ---
Providers Date of admission: 11/13/21 10:02 Attending physician: Sammy Noriega MD Consults: 11/13/21 15:15 Consult Physician Routine Consulting Provider: Pierce De La Torre Consult Reason/Comments: covid Do you want consulting provider notified?: Yes Consult Physician Routine Consulting Provider: Nakita Moreno Consult Reason/Comments: covid-remdesivir? Do you want consulting provider notified?: Yes 11/14/21 17:27 Consult Physician Routine Consulting Provider: Ayaka Chirinos Consult Reason/Comments: covid, high trops Do you want consulting provider notified?: Yes 11/24/21 20:34 Consult Physician Stat Consulting Provider: Monik Wallace Consult Reason/Comments: low urine output Do you want consulting provider notified?: Already Contacted 11/24/21 20:56 Consult Physician Routine Consulting Provider: Ayaka Chirinos Consult Reason/Comments: new onset afib Do you want consulting provider notified?: Yes, Notify in am Primary care physician: Stated None Hospital Course: Patient was admitted for Covid 19 pneumonia his overall clinical condition continued to get worse, was initially on BiPAP and patient respiratory status has gotten worse and the patient is found to have right-sided pneumothorax subsequently transferred to ICU patient was intubated and patient had a chest tube on the right side. Patient also did septic shock with profound hypotension requiring high doses of pressor support. Patient was on 100% the FiO2 with PEEP of 15 in spite of which patient continued to get worse and found to have a pneumothorax on the left side patient had a chest tube on the left side is a little condition continued to get the words and patient went into multiorgan failure patient had acute tubular necrosis with worsening creatinine. Patient overall prognosis remained poor. Family was at bedside and family decided to to withdraw the care patient was terminally weaned and subsequently . Please refer to the documentation by traffic clerk for further details. Assessment Acute hypoxic respiratory failure secondary to Covid 19 on 15L HF 7 pneumothorax bilateral Septic shock Acute renal failure: Secondary to acute tubular necrosis Obesity Hyperglycemia secondary to steroid use Plan - Discharge Summary Discharge Rx Participant: No New Discharge Prescriptions: No Action Cholecalciferol [Vitamin D3 (25 Mcg = 1000 Iu)] 50 mcg PO DAILY Discharge Medication List Cholecalciferol [Vitamin D3 (25 Mcg = 1000 Iu)] 50 mcg PO DAILY 11/13/21 [History] Follow up Appointment(s)/Referral(s): Andrew Carmona MD [STAFF PHYSICIAN] - 3 Weeks Wilber Verduzco MD [STAFF PHYSICIAN] - 3 Days Discharge Disposition: - Preliminary Cause of Preliminary Cause of : Covid 19 pneumonia
== END 2021-11-25 10:42 | disposition expired | DRG 208 ==
LOC: EC 08:06 → 3SCARD 10:02 → 2SICU 11-24 02:10
PROVIDERS: ADMIT Internal Medicine; ATTEND Internal Medicine
PROC: XW0DXM6 Introduction of Baricitinib into Mouth and Pharynx, External Approach, New Technology Group 6 (ICD-10-PCS; 2021-11-17)
PROC: 3E033XZ Introduction of Vasopressor into Peripheral Vein, Percutaneous Approach (ICD-10-PCS; 2021-11-24)
PROC: 0W9B30Z Drainage of Left Pleural Cavity with Drainage Device, Percutaneous Approach (ICD-10-PCS; principal; 2021-11-25)
PROC: 0BH17EZ Insertion of Endotracheal Airway into Trachea, Via Natural or Artificial Opening (ICD-10-PCS; 2021-11-25)
PROC: 5A1935Z Respiratory Ventilation, Less than 24 Consecutive Hours (ICD-10-PCS; 2021-11-25)
DX: U07.1 COVID-19 (principal); A41.89 Other specified sepsis; G93.41 Metabolic encephalopathy; J12.82 Pneumonia due to coronavirus disease 2019; J93.0 Spontaneous tension pneumothorax; J96.01 Acute respiratory failure with hypoxia; N17.0 Acute kidney failure with tubular necrosis; R65.21 Severe sepsis with septic shock; E87.1 Hypo-osmolality and hyponatremia; E87.2 Acidosis; G93.1 Anoxic brain damage, not elsewhere classified; J44.0 Chronic obstructive pulmonary disease with (acute) lower respiratory infection; J44.1 Chronic obstructive pulmonary disease with (acute) exacerbation; J84.9 Interstitial pulmonary disease, unspecified; Z68.41 Body mass index [BMI] 40.0-44.9, adult; Z66 Do not resuscitate; Z51.5 Encounter for palliative care; D64.9 Anemia, unspecified; D69.6 Thrombocytopenia, unspecified; D72.819 Decreased white blood cell count, unspecified; E66.9 Obesity, unspecified; I07.1 Rheumatic tricuspid insufficiency; I10 Essential (primary) hypertension; I27.20 Pulmonary hypertension, unspecified; I48.91 Unspecified atrial fibrillation; T38.0X5A Adverse effect of glucocorticoids and synthetic analogues, initial encounter; Z79.01 Long term (current) use of anticoagulants; R79.89 Other specified abnormal findings of blood chemistry; R77.8 Other specified abnormalities of plasma proteins
CPT/HCPCS: 36415; 36600; 70450; 71045; 71275; 80048; 80053; 81001; 82728; 82805; 83615; 83735; 84145; 84484; 85025; 85379; 86140; 87040; 87070; 87077; 87086; 87186; 87205; 87635; 93005; 93306; 93970; 94002; 94640; 94660; 94760; 99291